=== PATIENT | female | born 1940 | race Caucasian/White ===

== ENCOUNTER 2019-10-05 02:14 | Inpatient (IN) ==
--- OUTSIDE RECORDS SUMMARY | 2019-10-05 02:16 | External Medical Summary | Continuity of Care Document ---
:1940 Author Name Nick Hobson, Provider Address Unavailable Unavailable , Care Team Providers Name Role Phone Russ Hobson, Claudy Cummins Unavailable [email or web address], [email or web address] Unavailable Unavailable Problems Active medical history not documented Allergies and Adverse Reactions Allergy history not documented Medications Medications not documented Procedures Procedures not documented Immunizations Immunizations not documented Plan of Treatment Planned Observations Planned Goals not documented Results No Known Results Results not documented
--- OUTSIDE RECORDS SUMMARY | 2019-10-05 02:16 | External Medical Summary | Continuity of Care Document ---
:1940 Author Name Nick Hobson, Provider Address Unavailable Unavailable , Care Team Providers Name Role Phone Russ Hobson, Claudy Cummins Unavailable [email or web address], UNKNOWN Unavailable Unavailable Problems Active medical history not documented Allergies and Adverse Reactions Allergy history not documented Medications Medications not documented Procedures Procedures not documented Immunizations Immunizations not documented Plan of Treatment Planned Observations Planned Goals not documented Results No Known Results Results not documented
--- NOTE | 2019-10-05 02:43 | Emergency Department Note ---
History of Present Illness General Chief complaint: Abdominal Pain Stated complaint: SEVERE ABD PAIN Time Seen by Provider: 10/05/19 02:25 Source: patient Mode of arrival: ambulatory Limitations: no limitations History of Present Illness Provider complaint: Abdominal pain Onset (ago): hour(s) Location: abdomen Radiation: abdomen Severity: moderate Pain Consistency: + constant Maximum Pain Intensity: 5 Current Pain Intensity: 5 Quality: + constant Relieved By: + none Exacerbated By: + none Associated symptoms: + loss of appetite; no chest pain, no fever/chills, no bishnu sea/vomiting and no syncope Treatments prior to arrival: none Is a 78-year-old female who presents from home complaining of worsening abdomi nal pain. Patient states the abdominal pain started earlier this evening. Patient states it was initially located only on the left lower and left mid abdomen, but has since begun to radiate across her central abdomen. Patient states she feels bloated as well. Patient denies any radiation of pain into her back. Patient denies any recent change in her bowel movements, no recent change in her urine or urinary habits. Patient denies any accompanying fevers or chills, nausea vomiting. No change in diet, no known sick contacts. Patient states the pain did not change with position or moving. Patient states she did not take anything for the pain prior to arrival. Patient denies any prior h istory of similar pain. Patient states she has no known stomach or intestinal problems, however has never had a colonoscopy. Pt seen during a time of high acuity and national emergency pandemic while wearing PPE. Home Medications Home Medications Medication Instructions Recorded Confirmed Type lisinopril [Zestril] 5 mg PO QAM #30 tab 10/05/19 Rx Allergies Allergy/AdvReac Type Severity Reaction Status Date / Time milk AdvReac Intermediate NAUSEA/VOMI Verified 10/05/19 04:58 TING Past Med/Surg History Medical History Abdominal aortic aneurysm (AAA) 3.0 cm to 5.0 cm in diameter in female Family History (Updated 10/05/19 @ 15:07 by Hussain Willis MD) Father No problems noted. Mother No problems noted. Other Family history non-contributory Social History Smoking Status: Heavy tobacco smoker Second Hand Exposure: No; Hx Alcohol Use: Yes Alcohol type: wine Hx Substance Use: No Preferred Language: Montserratian Communication Ability: Effective Conditioning Yard Supervisor Required: No Beliefs That Will Affect Care: None Current Living Situation: Significant Other Feels Safe at Home: Yes Review of Systems See HPI for pertinent positives & negatives. and A total of 10 systems reviewed and were otherwise negative Physical Exam Vital Signs Vital Signs - 24 hr 10/05/19 02:19 10/05/19 02:50 10/05/19 03:00 Temperature 36.6 C Temperature Source Oral Pulse Rate 64 65 63 Pulse Rate from SpO2 Sensor 65 63 Respiratory Rate 19 20 20 Respiratory Effort / Characteristics Non-Labored Spontaneous Respiratory Depth Normal Blood Pressure 222/108 H 232/121 H 242/112 H Blood Pressure Mean 146 138 130 Blood Pressure Position Sitting Pulse Oximetry 97 96 98 Oxygen Delivery Method Room Air Room Air Room Air Sepsis Recent Fever Within 48 Hours No Sepsis New/Unexplained Change in Mental Status N/A Sepsis Action Taken by Nursing No Action Required 10/05/19 03:31 10/05/19 03:49 10/05/19 04:00 Temperature Temperature Source Pulse Rate 62 67 Pulse Rate from SpO2 Sensor Respiratory Rate 22 16 19 Respiratory Effort / Characteristics Respiratory Depth Blood Pressure 225/136 H 209/109 H 224/99 H Blood Pressure Mean 164 131 113 Blood Pressure Position Pulse Oximetry 95 96 96 Oxygen Delivery Method Sepsis Recent Fever Within 48 Hours Sepsis New/Unexplained Change in Mental Status Sepsis Action Taken by Nursing 10/05/19 04:30 10/05/19 05:00 10/05/19 05:35 Temperature Temperature Source Pulse Rate 63 68 74 Pulse Rate from SpO2 Sensor Respiratory Rate 16 17 15 Respiratory Effort / Characteristics Respiratory Depth Blood Pressure 219/101 H 172/100 H 157/91 H Blood Pressure Mean 123 112 113 Blood Pressure Position Pulse Oximetry 99 99 99 Oxygen Delivery Method Sepsis Recent Fever Within 48 Hours Sepsis New/Unexplained Change in Mental Status Sepsis Action Taken by Nursing 10/05/19 06:00 10/05/19 06:30 10/05/19 07:00 Temperature Temperature Source Pulse Rate 65 70 70 Pulse Rate from SpO2 Sensor Respiratory Rate 19 20 21 Respiratory Effort / Characteristics Respiratory Depth Blood Pressure 185/86 H 179/97 H 173/93 H Blood Pressure Mean 119 140 119 Blood Pressure Position Pulse Oximetry 99 99 97 Oxygen Delivery Method Sepsis Recent Fever Within 48 Hours Sepsis New/Unexplained Change in Mental Status Sepsis Action Taken by Nursing 10/05/19 07:26 10/05/19 07:30 10/05/19 08:00 Temperature Temperature Source Pulse Rate 67 63 70 Pulse Rate from SpO2 Sensor 64 Respiratory Rate 20 17 23 Respiratory Effort / Characteristics Respiratory Depth Blood Pressure 173/93 H 185/91 H 181/106 H Blood Pressure Mean 99 124 134 Blood Pressure Position Pulse Oximetry 97 95 Oxygen Delivery Method Sepsis Recent Fever Within 48 Hours Sepsis New/Unexplained Change in Mental Status Sepsis Action Taken by Nursing 10/05/19 08:30 10/05/19 09:00 Temperature Temperature Source Pulse Rate 72 68 Pulse Rate from SpO2 Sensor 73 Respiratory Rate 16 21 Respiratory Effort / Characteristics Respiratory Depth Blood Pressure 182/106 H 188/97 H Blood Pressure Mean 144 127 Blood Pressure Position Pulse Oximetry 92 96 Oxygen Delivery Method Sepsis Recent Fever Within 48 Hours Sepsis New/Unexplained Change in Mental Status Sepsis Action Taken by Nursing GENERAL: alert, ill appearing, well nourished, no distress, non-toxic EYE EXAM: normal conjunctiva, PERRL and EOM's grossly intact OROPHARYNX: no exudate, no erythema, lips, buccal mucosa, and tongue normal and mucous membranes are moist NECK: supple, no nuchal rigidity, no adenopathy, non-tender LUNGS: Clear to auscultation. Normal chest wall mechanics, no w/r/r HEART: no murmurs, S1 normal and S2 normal ABDOMEN: abdomen soft, pain with palpation of the left lower abdomen, normo- active bowel sounds, no masses, no rebound or guarding. BACK: Back is symmetrical on inspection and there is no deformity, no midline tenderness, no CVA tenderness. SKIN: no rashes and no bruising UPPER EXTREMITIES: upper extremities are grossly normal. FROM, nml pulses b/l. LOWER EXTREMITIES: No pitting edema. FROM, nml pulses b/l. NEURO EXAM: Normal sensorium, cranial nerves II-XII grossly intact, normal speech, no gross weakness of arms, no gross weakness of legs. Gross sensation intact. Course Course 0426: I contacted stat read radiology to discuss the report for the patient CT. The reading radiologist had already gone home, however another radiologist, Dr. Isaacs, was able to pull up the study and discussed the findings. He states no evidence of acute pathology to explain the pain. The vascular findings noted by Dr. Villalba all appear chronic, there is no leaking or dissection. There is no evidence of bowel obstruction. There is an abnormality noted at the ileocec al valve that is of unclear etiology. 0440: Patient updated on results. 0542: Case discussed with Dr. Koroma. He would like additional input from radiology regarding the abnormal findings due to concern for need for vascular intervention. 0601: Discussed with radiologist, Dr. Yousif. He will review the study and call us back. 0622: Discussed with Dr. Yousif. 0703: Case discussed with Dr. Don. 0802: Case discussed with Dr. Willis. Administered Medications Discontinued Medications Fentanyl Citrate (Fentanyl Citrate) 50 mcg IV Q15M PRN PRN Reason: Pain Stop: 10/19/19 03:11 Last Admin: 10/05/19 03:30 Dose: 50 mcg Documented by: [id number] Hydralazine HCl (Hydralazine Hcl) 10 mg IV NOW STA Stop: 10/05/19 03:13 Last Admin: 10/05/19 03:30 Dose: 10 mg Documented by: [id number] Hydralazine HCl (Hydralazine Hcl) 10 mg IV NOW STA Stop: 10/05/19 04:18 Last Admin: 10/05/19 04:36 Dose: 10 mg Documented by: [id number] Hydralazine HCl (Hydralazine Hcl) 10 mg IV Q4H PRN PRN Reason: SBP > 190 or DBP > 110 Stop: 11/04/19 11:02 Last Admin: 10/05/19 12:20 Dose: 10 mg Documented by: [id number] Sodium Chloride (Nss 1000ml) 1,000 mls @ 125 mls/hr IV .Q8H XU Stop: 11/04/19 05:14 Last Infusion: 10/05/19 15:32 Dose: 0 mls/hr Documented by: [id number] Admin: 10/05/19 05:18 Dose: 125 mls/hr Documented by: [id number] Ioversol (Optiray 320 100ml) 100 ml IV ONCE PRN PRN Reason: Interaction Checking Stop: 10/09/19 03:36 Last Admin: 10/05/19 03:37 Dose: 93 ml Documented by: [id number] Lisinopril (Zestril) 5 mg PO QAM XU Stop: 11/04/19 11:02 Last Admin: 10/05/19 11:48 Dose: 5 mg Documented by: [id number] Polyethylene Glycol (Miralax Powder Packet) 17 gm PO DAILY [facility] Stop: 11/04/19 11:02 Last Admin: 10/05/19 11:48 Dose: 17 gm Documented by: [id number] Critical Care Time Critical Care Time: Yes Total Critical Care Time: 48 Critical care of 48 min performed to assess and manage high likelihood of life- threatening hypertension, involving labs/imaging performed with assessment to evaluate possible hypertensive emergency diagnosis with frequent reassessment. This time includes bedside time, treatment discussions with patient/family/consultants, documentation time and excludes procedure time. Medical Decision Making Differential Diagnosis Differential diagnoses includes but is not limited to gastritis, peptic ulcer disease, GERD, gallbladder disease, pancreatitis, small bowel obstruction, acute coronary syndrome, pericarditis, ischemic bowel, irritable bowel disease, irritable bowel syndrome, appendicitis, diverticulitis, malignancy, hernia, urinary tract infection, torsion, [/ectopic (if female)], perforation, trauma, infectious. Medical Records Attestation: I reviewed the patient's medical records. Home Medications Current Medication List: was personally reviewed by me Laboratory Data Attestation: I reviewed the patient's lab results. Result diagrams: 10/05/19 04:31 10/05/19 02:48 Lab Results 10/05/19 10/05/19 10/05/19 Range/Units 02:48 02:48 02:48 WBC 5.86 (4.8-10.8) K/uL RBC 4.85 (4.2-5.4) M/uL Hgb 13.1 (12.0-16.0) g/dL Hct 41.4 (37-47) % MCV 85.4 (80-100) fL MCH 27.0 (25-34) pg MCHC 31.6 L (32-36) g/dL RDW Std Deviation 49.8 H (36.4-46.3) fL RDW Coeff of Paul 16.0 H (11.5-14.5) % Plt Count 204 (130-400) K/uL MPV 9.8 (7.4-10.4) fL Immature Gran % (Auto) 0.0 % Neut % (Auto) 68.7 % Lymph % (Auto) 17.6 % [place] % (Auto) 10.8 % Eos % (Auto) 2.6 % Baso % (Auto) 0.3 % Neut # (Auto) 4.03 (1.4-6.5) K/uL Lymph # (Auto) 1.03 L (1.2-3.4) K/uL [place] # (Auto) 0.63 H (0.11-0.59) K/uL Eos # (Auto) 0.15 (0-0.5) K/uL Baso # (Auto) 0.02 (0-0.2) K/uL Immature Gran # (Auto) 0.00 (0.00-0.02) K/uL PT 10.8 (9.0-12.0) Seconds INR 1.0 (0.9-1.1) Sodium (136-145) mmol/L Potassium (3.5-5.1) mmol/L Chloride (98-107) mmol/L Carbon Dioxide (21-32) mmol/L Anion Gap (3-11) BUN (7-18) mg/dl Creatinine (0.6-1.2) mg/dl Est Cr Clr Drug Dosing ml/min Est GFR ( Amer) Est GFR (Non-Af Amer) BUN/Creatinine Ratio (10-20) Glucose (70-99) mg/dl Lactate 1.0 (0.4-2.0) mmol/L Calcium (8.5-10.1) mg/dl Magnesium (1.8-2.4) mg/dl Total Bilirubin (0.2-1) mg/dl AST (15-37) U/L ALT (12-78) U/L Alkaline Phosphatase (45-117) U/L Troponin I (0-0.045) ng/ml Total Protein (6.4-8.2) gm/dl Albumin (3.4-5.0) gm/dl Globulin (2.5-4.0) gm/dl Albumin/Globulin Ratio (0.9-2) Lipase (73-393) U/L Urine Color Urine Appearance (Clear) Urine pH (4.5-7.5) Ur Specific [place] (1.000-1.030) Urine Protein (Negative) Urine Glucose (UA) (Negative) Urine Ketones (Negative) Urine Blood (Negative) Urine Nitrite (Negative) Urine Bilirubin (Negative) Urine Urobilinogen (Negative) Ur Leukocyte Esterase (Negative) Urine WBC (Auto) (0-5) /hpf Urine RBC (Auto) (0-4) /hpf U Hyaline Cast (Auto) (0-5) /lpf U Epithel Cells (Auto) (0-5) /lpf Urine Bacteria (Auto) (Negative) Blood Type Antibody Screen 10/05/19 10/05/19 10/05/19 Range/Units 02:48 03:50 04:31 WBC (4.8-10.8) K/uL RBC (4.2-5.4) M/uL Hgb (12.0-16.0) g/dL Hct (37-47) % MCV (80-100) fL MCH (25-34) pg MCHC (32-36) g/dL RDW Std Deviation (36.4-46.3) fL RDW Coeff of Paul (11.5-14.5) % Plt Count (130-400) K/uL MPV (7.4-10.4) fL Immature Gran % (Auto) % Neut % (Auto) % Lymph % (Auto) % [place] % (Auto) % Eos % (Auto) % Baso % (Auto) % Neut # (Auto) (1.4-6.5) K/uL Lymph # (Auto) (1.2-3.4) K/uL [place] # (Auto) (0.11-0.59) K/uL Eos # (Auto) (0-0.5) K/uL Baso # (Auto) (0-0.2) K/uL Immature Gran # (Auto) (0.00-0.02) K/uL PT (9.0-12.0) Seconds INR (0.9-1.1) Sodium 143 (136-145) mmol/L Potassium 3.6 (3.5-5.1) mmol/L Chloride 109 H (98-107) mmol/L Carbon Dioxide 30 (21-32) mmol/L Anion Gap 4.0 (3-11) BUN 15 (7-18) mg/dl Creatinine 1.05 (0.6-1.2) mg/dl Est Cr Clr Drug Dosing 35.9 ml/min Est GFR ( Amer) 58.5 Est GFR (Non-Af Amer) 50.5 BUN/Creatinine Ratio 13.8 (10-20) Glucose 109 H (70-99) mg/dl Lactate (0.4-2.0) mmol/L Calcium 8.7 (8.5-10.1) mg/dl Magnesium 2.2 (1.8-2.4) mg/dl Total Bilirubin 0.5 (0.2-1) mg/dl AST 17 (15-37) U/L ALT 13 (12-78) U/L Alkaline Phosphatase 85 (45-117) U/L Troponin I < 0.015 (0-0.045) ng/ml Total Protein 7.3 (6.4-8.2) gm/dl Albumin 3.3 L (3.4-5.0) gm/dl Globulin 4.0 (2.5-4.0) gm/dl Albumin/Globulin Ratio 0.8 L (0.9-2) Lipase 136 (73-393) U/L Urine Color Yellow Urine Appearance Clear (Clear) Urine pH 7.5 (4.5-7.5) Ur Specific [place] 1.018 (1.000-1.030) Urine Protein Negative (Negative) Urine Glucose (UA) Negative (Negative) Urine Ketones Negative (Negative) Urine Blood 3+ H (Negative) Urine Nitrite Negative (Negative) Urine Bilirubin Negative (Negative) Urine Urobilinogen Negative (Negative) Ur Leukocyte Esterase Negative (Negative) Urine WBC (Auto) 1-5 (0-5) /hpf Urine RBC (Auto) >30 H (0-4) /hpf U Hyaline Cast (Auto) 0 (0-5) /lpf U Epithel Cells (Auto) 10-20 H (0-5) /lpf Urine Bacteria (Auto) Negative (Negative) Blood Type A Positive Antibody Screen NEGATIVE 10/05/19 Range/Units 04:31 WBC 7.92 (4.8-10.8) K/uL RBC 4.92 (4.2-5.4) M/uL Hgb 13.4 (12.0-16.0) g/dL Hct 41.9 (37-47) % MCV 85.2 (80-100) fL MCH 27.2 (25-34) pg MCHC 32.0 (32-36) g/dL RDW Std Deviation 50.3 H (36.4-46.3) fL RDW Coeff of Paul 16.0 H (11.5-14.5) % Plt Count 202 (130-400) K/uL MPV 10.3 (7.4-10.4) fL Immature Gran % (Auto) % Neut % (Auto) % Lymph % (Auto) % [place] % (Auto) % Eos % (Auto) % Baso % (Auto) % Neut # (Auto) (1.4-6.5) K/uL Lymph # (Auto) (1.2-3.4) K/uL [place] # (Auto) (0.11-0.59) K/uL Eos # (Auto) (0-0.5) K/uL Baso # (Auto) (0-0.2) K/uL Immature Gran # (Auto) (0.00-0.02) K/uL PT (9.0-12.0) Seconds INR (0.9-1.1) Sodium (136-145) mmol/L Potassium (3.5-5.1) mmol/L Chloride (98-107) mmol/L Carbon Dioxide (21-32) mmol/L Anion Gap (3-11) BUN (7-18) mg/dl Creatinine (0.6-1.2) mg/dl Est Cr Clr Drug Dosing ml/min Est GFR ( Amer) Est GFR (Non-Af Amer) BUN/Creatinine Ratio (10-20) Glucose (70-99) mg/dl Lactate (0.4-2.0) mmol/L Calcium (8.5-10.1) mg/dl Magnesium (1.8-2.4) mg/dl Total Bilirubin (0.2-1) mg/dl AST (15-37) U/L ALT (12-78) U/L Alkaline Phosphatase (45-117) U/L Troponin I (0-0.045) ng/ml Total Protein (6.4-8.2) gm/dl Albumin (3.4-5.0) gm/dl Globulin (2.5-4.0) gm/dl Albumin/Globulin Ratio (0.9-2) Lipase (73-393) U/L Urine Color Urine Appearance (Clear) Urine pH (4.5-7.5) Ur Specific [place] (1.000-1.030) Urine Protein (Negative) Urine Glucose (UA) (Negative) Urine Ketones (Negative) Urine Blood (Negative) Urine Nitrite (Negative) Urine Bilirubin (Negative) Urine Urobilinogen (Negative) Ur Leukocyte Esterase (Negative) Urine WBC (Auto) (0-5) /hpf Urine RBC (Auto) (0-4) /hpf U Hyaline Cast (Auto) (0-5) /lpf U Epithel Cells (Auto) (0-5) /lpf Urine Bacteria (Auto) (Negative) Blood Type Antibody Screen Imaging Data Radiologist's Impression: CT abdomen and pelvis with contrast: Left hepatic 1.5 cm medial posterior segment 3 cyst. Bilateral renal cyst. Mild constipation. Appendix is not well seen. Bowel loops in the right lower pelvis measuring 10.5 cm in diameter is felt to be a fluid-filled small bowel loop rather than a distended appendix. No surrounding inflammatory changes. 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 Mild calcification at bilateral renal arteries. Fusiform infrarenal abdominal aortic aneurysm with a caliber of 3.56 cm. 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 There is 50% stenosis just proximal to the aortic bifurcation with left-sided thrombus measuring up to 1.6 cm and right-sided patent lumen measuring up to 1.56 cm. Atherosclerotic calcification of bilateral pelvic arteries. Pin and intramedullary shanice seen in the proximal left femur and neck. 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 Lower lumbar spine degenerative changes. Radiologist:Jemima Villalba MD CT pelvis wo con HISTORY: 78 years-old Female abn ileocecal valve abnormal ileocecal valve. COMPARISON: CT abdomen and pelvis of same day at 3:43 AM TECHNIQUE: Multiple axial CT images of the pelvis were obtained without the use of IV contrast. A dose lowering technique was used consistent with the principals of ALARA. FINDINGS: The terminal ileum demonstrates decreased distention from comparison. The previously questioned thickening at the ileocecal valve on the noncontrast study demonstrates density of approximately 61. The postcontrast study from earlier demonstrate Hounsfield of 93 suggestive of apparent enhancement. Exam is motion degraded. The visualized appendix appears normal. Moderate fecal retention. Fusiform aneurysmal dilation of the distal abdominal aorta with extensive calcified plaque and mural thrombus redemonstrated. Retained contrast within the urinary bladder. Right renal cyst. Tarlov's cysts of the sacrum. Demineralized appearance of the bones. Degenerative changes of the spine and hips. Partially imaged orthopedic hardware of the proximal left femur. IMPRESSION: 1. Study is mildly motion degraded. 2. Soft tissue thickening of the ileocecal valve demonstrates apparent decreased attenuation compared to the postcontrast study from earlier today. Findings are suspicious for an enhancing mucosal lesion of the ileocecal valve. Correlation with colonoscopy recommended. 3. No bowel obstruction. 4. Normal appendix. 5. Please refer to CT abdomen and pelvis of same day for additional findings. ACT 112: Negative or not required by law. The above report was generated using voice recognition software. It may contain grammatical, syntax or spelling errors. Electronically signed by: Omar Don M.D. 10/05/2019 7:34 AM ECG Data Attestation: I personally reviewed and interpreted this ECG as follows: Indication: + abdominal pain Rate (beats per minute): 62 Rhythm: + normal sinus ECG Intervals/blocks: + First degree AV block, + Normal QRS and + Normal QT ECG [place]: + Left axis deviation ECG ST segments: + Normal ST segments Blood Pressure Blood Pressure Findings: Elevated blood pressure Blood Pressure Disposition: further management by hospitalist LEXIS Alvarez Patient well-appearing here with initial complaints of abdominal pain. Patient found to be markedly hypertensive, and given her noncompliant status with preventive medicine and routine screenings, I feel she likely has underlying hypertension that may be exacerbated by pain and anxiety regarding her condition. Patient had labs drawn and sent and patient sent for CT imaging. Multiple abnormalities were noted on the CT. These were discussed with the patient at bedside. Patient was given IV hydralazine which showed mild improvement in her pain as well as some fentanyl. I discussed all results with patient and her significant other at bedside and they were in agreement with plan for additional inpatient treatment. Patient was given a second dose of IV hydralazine. After the CT result was made available I did call the overnight stat read to try and discussed the findings to assure that the vascular findings noted were not new or acute warranting prompt vascular intervention. The radiologist stated these all appeared chronic. They did not see any acute evidence for surgical pathology or acute vascular pathology on the study. After discussing the patient's clinical presentation, they state they did not see any acute reason for her left-sided abdominal pain. Case was discussed with the hospitalist for additional blood pressure management and pain control, and they requested additional over read by our not any radiologist due to abnormal findings. I discussed the case with 2 of our in-house radiologist who felt ultimately patient did not have any acute surgical or vascular emergency, but would need additional follow-up and likely outpatient colonoscopy. I did discuss this with the patient. Ultimately the case was discussed with the critical access hospital hospitalist, Dr. Willis. An order was placed for continuous cardiac monitoring. The monitor shows a rate of 62 with normal sinus rhythm. Impression & Plan Abdominal pain, Hypertension Discharge Plan Visit Data *Final* Discharge Date/Time: 10/05/19 09:47 Chief Complaint: Abdominal Pain Stated Complaint: SEVERE ABD PAIN ED Provider: Lolis Mac Discharge Problem: Abdominal pain, Hypertension Patient Disposition: Admitted As Inpatient Discharge Instructions Interventions: ED Discharge Assessment Last Done: 10/05/19 09:47 Discharge Problem: Abdominal pain Qualifiers: Abdominal location: left lower quadrant Qualified Code(s): R10.32 - Left lower quadrant pain Hypertension Qualifiers: Hypertension type: unspecified Qualified Code(s): I10 - Essential (primary) hypertension
[2019-10-05 02:59] LABS: Basophils # (auto) 0.02 K/uL (0-0.2); Basophils % (auto) 0.3 %; Eosinophils # (auto) 0.15 K/uL (0-0.5); Eosinophils % (auto) 2.6 %; Hematocrit (blood only) 41.4 % (37-47); Hemoglobin 13.1 g/dL (12.0-16.0); Lymphocytes # (auto) 1.03 K/uL (1.2-3.4); Lymphocytes % (auto) 17.6 %; Mean Corpuscular Hgb Conc 31.6 g/dL (32-36); Mean Corpuscular Volume 85.4 fL (80-100); Mean Platelet Volume 9.8 fL (7.4-10.4); Monocytes # (auto) 0.63 K/uL (0.11-0.59); Monocytes % (auto) 10.8 %; Neutrophils # (auto) 4.03 K/uL (1.4-6.5); Neutrophils % (auto) 68.7 %; Platelet Count 204 K/uL (130-400); RDW Standard Deviation 49.8 fL (36.4-46.3); Red Blood Count 4.85 M/uL (4.2-5.4); White Blood Count 5.86 K/uL (4.8-10.8)
[2019-10-05 03:11] LABS: Prothrombin Time 10.8 Seconds (9.0-12.0)
[2019-10-05] MEDS ORDERED: fentaNYL citrate 100 MCG/2 ML VIAL IV PRN (03:12)
[2019-10-05] MEDS ORDERED: HydrALAZINE HCL 20 MG/ML VIAL IV STA ×2 (03:12→04:17)
[2019-10-05 03:18] LABS: Alanine Aminotransferase 13 U/L (12-78); Albumin Level 3.3 gm/dl (3.4-5.0); Aspartate Aminotransferase 17 U/L (15-37); BUN Creatinine Ratio 13.8 (10-20); Blood Urea Nitrogen 15 mg/dl (7-18); Calcium 8.7 mg/dl (8.5-10.1); Carbon Dioxide 30 mmol/L (21-32); Chloride 109 mmol/L (98-107); Creatinine Clr Calc Pharmacy 35.9 ml/min; Est GFR (African American) 58.5; Est GFR (Non-African American) 50.5; Glucose 109 mg/dl (70-99); Lipase 136 U/L (73-393); Magnesium 2.2 mg/dl (1.8-2.4); Potassium 3.6 mmol/L (3.5-5.1); Sodium 143 mmol/L (136-145)
[2019-10-05 03:23] LABS: Albumin Globulin Ratio 0.8 (0.9-2); Alkaline Phosphatase 85 U/L (45-117); Bilirubin,Total 0.5 mg/dl (0.2-1); Total Protein 7.3 gm/dl (6.4-8.2); Troponin I < 0.015 ng/ml (0-0.045)
[2019-10-05] MEDS ORDERED: IOVERSOL 100ml IV PRN (03:37)
[2019-10-05 04:09] LABS: Appearance Urine Clear (Clear); Bacteria Urine Automated Negative (Negative); Bilirubin Urine Negative (Negative); Blood Urine 3+ (Negative); Cast Urine Automated 0 /lpf (0-5); Color Urine Yellow; Glucose Urine UA Negative (Negative); Ketones Urine Negative (Negative); Leukocyte Esterase Urine Negative (Negative); Nitrite Urine Negative (Negative); RBC Urine Automated >30 /hpf (0-4); Specific Gravity Urine 1.018 (1.000-1.030); Urobilinogen Urine Negative (Negative); pH Urine 7.5 (4.5-7.5)
[2019-10-05 04:13] LABS: Protein Urine Negative (Negative); Sulfosalicylic Acid Urine Negative (Negative)
[2019-10-05 04:49] LABS: Hematocrit (blood only) 41.9 % (37-47); Hemoglobin 13.4 g/dL (12.0-16.0); Mean Corpuscular Hemoglobin 27.2 pg (25-34); Mean Corpuscular Volume 85.2 fL (80-100); Mean Platelet Volume 10.3 fL (7.4-10.4); Platelet Count 202 K/uL (130-400); RDW Standard Deviation 50.3 fL (36.4-46.3); Red Blood Count 4.92 M/uL (4.2-5.4); White Blood Count 7.92 K/uL (4.8-10.8)
[2019-10-05] MEDS ORDERED: SODIUM CHLORIDE 0.9% 1000ML 1,000 ML IV SCH (05:15)
--- NOTE | 2019-10-05 07:01 | CT Scan Report ---
ABDOMEN AND PELVIS CT WITH IV CONTRAST CT DOSE: 247.47 mGy.cm HISTORY: Acute right lower quadrant abdominal pain llq pain TECHNIQUE: Multiaxial CT images of the abdomen and pelvis were performed following the IV administrat ion of 93 cc of Optiray 320, A dose lowering technique was utilized adhering to the principles of AL ÁNGEL. COMPARISON STUDY: None FINDINGS: Clear lung bases. Imaged inferior cardiac chambers are unremarkable. The spleen, pancreas, and gallbl adder are unremarkable. Probable cyst of the left hepatic lobe, 1.7 cm. 5 mm hypodensity of the left hepatic lobe is too small to characterize. Patency of the hepatic and portal veins. Unremarkable adre nal glands. Cyst of the inferior pole right kidney, 1.7 cm. No obstructive uropathy. Unremarkable uri nary bladder, uterus and adnexa. Severe mixed plaque of the abdominal aorta. Dilation of the descendi ng thoracic aorta, 3.8 cm. Fusiform aneurysmal dilation of the abdominal aorta measures up to 4.1 cm in greatest dimension. 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 The iliac and common femoral zuri katerin appear patent. No adenopathy. Moderate fecal retention. Indeterminate mixed density focus is noted at the ileocecal valve, 2.0 x 2. 6 cm in image 232 series 3. Stool-filled prominent terminal ileum measures 2.6 cm transversely. The a ppendix is not visualized in its entirety. The partially visualized appendix appears noninflamed. No small bowel obstruction. Nonspecific stranding of the omentum within the lateral left midabdomen, bryce ge 140 series 3. Mild generalized body wall edema. Tarlov cysts of the sacrum. Partially imaged hardw are of the proximal left femur. Demineralized appearance of the bones with degenerative changes of th e spine, pelvis and hips. 30% superior endplate compression deformities are noted at T12 and L3. No r etropulsion. IMPRESSION: 1. Moderate fecal retention. Mixed attenuating masslike thickening at the ileocecal valve measures up to 2.6 cm. This may reflect stool contents however an enhancing lesion could appear similarly. Follo w-up noncontrast CT of the pelvis is recommended to further characterize. Additionally, a follow-up c olonoscopy may also be considered. Stool-filled mildly prominent terminal ileum. 2. Partially visualized appendix appears noninflamed. 3. Extensive mixed atheromatous and atherosclerotic plaque of the abdominal aorta with fusiform aneur ysmal dilation measures up to 4.1 cm. No acute dissection. 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 The iliac and common femoral arteries appear patent. 4. Technically age-indeterminate compression deformities at T12 and L3. These are favored to be chron ic in etiology. ACT 112: Negative or not required by law. The above report was generated using voice recognition software. It may contain grammatical, syntax o r spelling errors. Electronically signed by: Omar Don M.D. 10/05/2019 6:59 AM
--- NOTE | 2019-10-05 07:36 | CT Scan Report ---
CT pelvis wo con HISTORY: 78 years-old Female abn ileocecal valve abnormal ileocecal valve. COMPARISON: CT abdomen and pelvis of same day at 3:43 AM TECHNIQUE: Multiple axial CT images of the pelvis were obtained without the use of IV contrast. A dos e lowering technique was used consistent with the principals of MEI. FINDINGS: The terminal ileum demonstrates decreased distention from comparison. The previously questioned thick ening at the ileocecal valve on the noncontrast study demonstrates density of approximately 61. The p ostcontrast study from earlier demonstrate Hounsfield of 93 suggestive of apparent enhancement. Exam is motion degraded. The visualized appendix appears normal. Moderate fecal retention. Fusiform aneury smal dilation of the distal abdominal aorta with extensive calcified plaque and mural thrombus redemo nstrated. Retained contrast within the urinary bladder. Right renal cyst. Tarlov's cysts of the sacru m. Demineralized appearance of the bones. Degenerative changes of the spine and hips. Partially image d orthopedic hardware of the proximal left femur. IMPRESSION: 1. Study is mildly motion degraded. 2. Soft tissue thickening of the ileocecal valve demonstrates apparent decreased attenuation compared to the postcontrast study from earlier today. Findings are suspicious for an enhancing mucosal lesio n of the ileocecal valve. Correlation with colonoscopy recommended. 3. No bowel obstruction. 4. Normal appendix. 5. Please refer to CT abdomen and pelvis of same day for additional findings. ACT 112: Negative or not required by law. The above report was generated using voice recognition software. It may contain grammatical, syntax o r spelling errors. Electronically signed by: Omar Don M.D. 10/05/2019 7:34 AM
[2019-10-05] MEDS ORDERED: ACETAMINOPHEN 325 MG TAB PO PRN (11:03)
[2019-10-05] MEDS ORDERED: HydrALAZINE HCL 20 MG/ML VIAL IV PRN (11:03)
[2019-10-05] MEDS ORDERED: ONDANSETRON INJ 2 MG/ML 2 ML VIAL IV PRN (11:03)
[2019-10-05] MEDS ORDERED: MoRPHine SULFATE 4 MG/ML 1 ML CARP\\VIAL IV PRN (11:03)
[2019-10-05] MEDS ORDERED: POLYETHYLENE (MIRALAX) 17 GM PACK PO SCH (11:03)
[2019-10-05] MEDS ORDERED: lisinopriL 5 MG TAB PO SCH (11:03)
--- NOTE | 2019-10-05 12:14 | Gastrointestinal Consultation ---
Date of Consultation October 05, 2019 Assessment & Plan (1) Abdominal pain: (2) Abnormal CT of the abdomen: (3) Hypertension: After discussion with the patient, she states she is not interested in any invasive work up or surgical procedure. She was made aware of the risks of undiagnosed colon cancer which can include bowel obstruction and . She states "I would rather kill myself than have any surgery". Interestingly, I did speak with Dr. Willis and the patient had reported willingness to have a colonoscopy when she was seen at the ER. With that said, she will need medical management of the persistently uncontrolled HTN and cardiac clearance, especially with regard to the newly found AAA. Will await input from vascular surgery. If she is medically managed and cleared, could possibly proceed with colonoscopy tomorrow if patient is agreeable. Will await further input from Dr. Willis in this regard prior to ordering bowel preparation for tonight. Will change diet to clear liquids in the event colonoscopy can proceed tomorrow with Dr. Goodrich. Thank you for allowing us to participate in the care of this patient. If you have any questions or concerns, please do not hesitate to contact us. Supervising Physician Co-Signing Physician Notes I personally evaluated the patient and agree with the findings as documented by ARDEN Oscar Exam: abd: soft, nt, nd Vascular surgery consult appreciated, no acute surgical intervention needed for AAA at this time. HTN is now controlled. Upon further discussion with her she appears to be amenable to a colonoscopy now to evaluate her abnormal imaging findings. Recommendations: --prep with golytely starting tonight --colonoscopy tomorrow to further evaluate History of Present Illness Reason for Consultation: Abnormal CT Requesting Physician: Dr. Willis Attending Physician: Hussain Willis MD History of Present Illness Patient is a pleasant 78 year-old female with a history of hypertension admitted after a one week history of abdominal pain. She describes the pain as a constant, bilateral lower quadrant pain that is sharp on admission rated at 5/10 which is now a 0/10 after administration of IV analgesics. She states she does not follow with any medical providers routinely and does not take any medications routinely. She is a chronic daily tobacco user and does occasionally consume alcohol. No family history of colorectal malignancy. In regard to her bowel habits, she reports a bm that every other day. No overt melanotic or bloody stools. With this acute abdominal pain, she has developed mild bloating a nd loss of appetite. No recent weight loss. On arrival, she was found to have a normal H&H of 13.4/41.9. She has remained persistently hypertensive since admission. She is pending a vascular evaluation due to CT evidence of an ~ 4 cm AAA. GI has been consulted in regard to findings of a 2.6 cm ileocecal thickening, concerning for a possible mass. She has never undergone a colonoscopy in the past or any other surgical procedure. Allergies Allergy/AdvReac Type Severity Reaction Status Date / Time milk AdvReac Intermediate NAUSEA/VOMI Verified 10/05/19 04:58 TING Home Medications Home Medications Medication Instructions Recorded Confirmed Type No Known Home Medications 10/05/19 10/05/19 History Patient History Medical History Abdominal aortic aneurysm (AAA) 3.0 cm to 5.0 cm in diameter in female Family History (Updated 10/05/19 @ 15:07 by Hussain Willis MD) Father No problems noted. Mother No problems noted. Other Family history non-contributory Social History Smoking Status: Heavy tobacco smoker Second Hand Exposure: No; Do You Dip or Chew Tobacco: No; Tobacco Cessation Education Requested by Patient: No Hx Alcohol Use: Yes Alcohol type: wine Hx Substance Use: No Preferred Language: Swedish Communication Ability: Effective Vice President Sales Required: No Beliefs That Will Affect Care: None Current Living Situation: Significant Other Feels Safe at Home: Yes Safety Concerns: Feels Safe At This Time Review of Systems Review of Systems: All systems reviewed & are unremarkable except as noted in HPI & below Physical Exam Constitutional: WD/WN, vitals as above well developed and well nourished Eyes: EOM intact bilaterally Neck: normal appearance Respiratory: normal respiratory effort, lungs clear to auscultation Cardiovascular: Rate/Rhythm: regular rate and regular rhythm Heart Sounds: no gallop and no murmur Gastrointestinal (Abdomen): normal bowel sounds, soft, nontender, no hepatosplenomegaly Inspection/Auscultation: abdomen not distended Musculoskeletal: Extremities: no cyanosis no lower extremity edema Skin: no rashes, warm and dry Neurologic: moves all extremities Psychiatric: A+Ox3, euthymic affect Results & Data ([facility]) Vital Signs (Past 12 Hours) Vital Signs Temp Pulse Pulse Pulse Resp BP BP 10/05/19 11:54 37 C 73 20 194/105 H 10/05/19 11:05 37 C 69 70 18 190/101 H 10/05/19 09:44 74 22 196/118 H 10/05/19 09:00 68 21 188/97 H 10/05/19 08:30 72 16 182/106 H 10/05/19 08:00 70 23 181/106 H 10/05/19 07:30 63 17 185/91 H 10/05/19 07:26 67 20 173/93 H 10/05/19 07:00 70 21 173/93 H 10/05/19 06:30 70 20 179/97 H 10/05/19 06:00 65 19 185/86 H 10/05/19 05:35 74 15 157/91 H 10/05/19 05:00 68 17 172/100 H 10/05/19 04:30 63 16 219/101 H 10/05/19 04:00 67 19 224/99 H 10/05/19 03:49 16 209/109 H 10/05/19 03:31 62 22 225/136 H 10/05/19 03:00 63 20 242/112 H 10/05/19 02:50 65 20 232/121 H 10/05/19 02:19 36.6 C 64 19 222/108 H BP Pulse Ox 10/05/19 11:54 204/118 H 97 10/05/19 11:05 195/75 H 98 10/05/19 09:44 97 10/05/19 09:00 96 10/05/19 08:30 92 10/05/19 08:00 95 10/05/19 07:30 97 10/05/19 07:26 10/05/19 07:00 97 10/05/19 06:30 99 10/05/19 06:00 99 10/05/19 05:35 99 10/05/19 05:00 99 10/05/19 04:30 99 10/05/19 04:00 96 10/05/19 03:49 96 10/05/19 03:31 95 10/05/19 03:00 98 10/05/19 02:50 96 10/05/19 02:19 97 PG Care Time/CCT Total # of Minutes Spent Total Time Spent with Patient: Total time spent is greater than 50% in coordination of care (as documented) at patient's floor/unit and/or counseling patient: Coding Level of Care Code 65454 Initial Inpt Care Lvl 3 Diagnoses Abdominal pain R10.32 Abdominal location: left lower quadrant Abnormal CT of the abdomen R93.5 Hypertension I10 Hypertension type: unspecified (1) Abdominal pain Abdominal location: left lower quadrant Qualified Code(s): R10.32 - Left lower quadrant pain (2) Hypertension Hypertension type: unspecified Qualified Code(s): I10 - Essential (primary) hypertension
--- NOTE | 2019-10-05 12:39 | Electrocardiogram Report ---
Test Reason : Blood Pressure : / mmHG Vent. Rate : 062 BPM Atrial Rate : 062 BPM P-R Int : 202 ms QRS Dur : 104 ms QT Int : 430 ms P-R-T Axes : 064 -40 039 degrees QTc Int : 436 ms Normal sinus rhythm Possible Left atrial enlargement Left axis deviation Possible Inferior infarct (cited on or before 06-FEB-2013) Abnormal ECG When compared with ECG of 06-FEB-2013 21:39, QRS axis Shifted left Confirmed by Zac Suárez ([id number]) on 10/05/2019 12:38:40 PM Referred By: REFERRED SELF Confirmed By:Zac Suárez
--- NOTE | 2019-10-05 13:48 | Consultation ---
Date of Consultation October 05, 2019 Assessment & Plan (1) Abdominal aortic aneurysm (AAA) 3.0 cm to 5.0 cm in diameter in female: Infrarenal fusiform AAA approx 4.1cm in diameter noted on CT scan. No indications of rupture or dissection. Abd pain resolved, not likely related to her AAA. Recommend pt follow up in office in 6 months with aortoiliac US. Pt agreeable to this plan. No indications for surgical intervention at this time. Please call if needed. History of Present Illness Reason for Consultation: AAA Attending Physician: Hussain Willis MD History of Present Illness 78 yo f without significant medical hx d/t not seeing a physician in years, admitted with abd pain and found to have a 4.1cm AAA, seen in vascular surgical consultation for same today. Pt states her abd pain has resolved. Denies any prior knowledge of her AAA. Does smoke cigarettes. Does not take anything for HTN, but was noted to be hypertensive at 200/100 today. Pt denies REYNOSO, fever, chills, chest pain, SOB, abd pain presently, N/V, rest pain, claudication, other complaints. CT abd/pelvis demonstrated infrerenal fusiform AAA 4.1cm. Allergies Allergy/AdvReac Type Severity Reaction Status Date / Time milk AdvReac Intermediate NAUSEA/VOMI Verified 10/05/19 04:58 TING Home Medications Home Medications Medication Instructions Recorded Confirmed Type No Known Home Medications 10/05/19 10/05/19 History Patient History Social History Smoking Status: Heavy tobacco smoker Second Hand Exposure: No; Do You Dip or Chew Tobacco: No; Tobacco Cessation Education Requested by Patient: No Hx Alcohol Use: Yes Alcohol type: wine Hx Substance Use: No Preferred Language: Setswana Communication Ability: Effective Bin Tripper Operator Required: No Beliefs That Will Affect Care: None Current Living Situation: Significant Other Feels Safe at Home: Yes Safety Concerns: Feels Safe At This Time Review of Systems Review of Systems: All systems reviewed & are unremarkable except as noted in HPI & below Physical Exam Constitutional: WD/WN, vitals as above healthy appearing, + frail appearing, cooperative and comfortable; not in distress Eyes: PERRL, conjunctivae normal, anicteric sclerae ENMT: external ear and nose normal, oropharynx normal Ears: no hearing impairment Neck: normal visual inspection Respiratory: normal respiratory effort, lungs clear to auscultation Auscultation: + diminished lung sounds Cardiovascular: RRR, no murmur, no edema Vessels: femoral pulses present, posterior tibial pulses present, dorsalis pedis pulses present, brachial pulses present and radial pulses present; + abnormal peripheral pulses Gastrointestinal (Abdomen): normal bowel sounds, soft, nontender, no hepatosplenomegaly Inspection/Auscultation: + visible pulsation (pulsatile mass, approx 4cm.) Musculoskeletal: no cyanosis or clubbing, extremities motor strength 5/5 Skin: no rashes, warm and dry Neurologic: moves all extremities and awake; no focal motor deficits and not confused Psychiatric: A+Ox3, euthymic affect Results & Data Vital Signs (Past 12 Hours) Vital Signs Temp Pulse Pulse Pulse Resp BP BP 10/05/19 12:50 164/86 H 10/05/19 11:54 37 C 73 20 194/105 H 10/05/19 11:05 37 C 69 70 18 190/101 H 10/05/19 09:44 74 22 196/118 H 10/05/19 09:00 68 21 188/97 H 10/05/19 08:30 72 16 182/106 H 10/05/19 08:00 70 23 181/106 H 10/05/19 07:30 63 17 185/91 H 10/05/19 07:26 67 20 173/93 H 10/05/19 07:00 70 21 173/93 H 10/05/19 06:30 70 20 179/97 H 10/05/19 06:00 65 19 185/86 H 10/05/19 05:35 74 15 157/91 H 10/05/19 05:00 68 17 172/100 H 10/05/19 04:30 63 16 219/101 H 10/05/19 04:00 67 19 224/99 H 10/05/19 03:49 16 209/109 H 10/05/19 03:31 62 22 225/136 H 10/05/19 03:00 63 20 242/112 H 10/05/19 02:50 65 20 232/121 H 10/05/19 02:19 36.6 C 64 19 222/108 H BP Pulse Ox 10/05/19 12:50 10/05/19 11:54 204/118 H 97 10/05/19 11:05 195/75 H 98 10/05/19 09:44 97 10/05/19 09:00 96 10/05/19 08:30 92 10/05/19 08:00 95 10/05/19 07:30 97 10/05/19 07:26 10/05/19 07:00 97 10/05/19 06:30 99 10/05/19 06:00 99 10/05/19 05:35 99 10/05/19 05:00 99 10/05/19 04:30 99 10/05/19 04:00 96 10/05/19 03:49 96 10/05/19 03:31 95 10/05/19 03:00 98 10/05/19 02:50 96 10/05/19 02:19 97
--- NOTE | 2019-10-05 15:12 | History & Physical Report ---
Date of Service October 05, 2019 Assessment & Plan (1) Abdominal pain: CT a/p in the ED showed an area of thickening in the ileocecal area which may be causing her LLQ pain. - Patient initially agreeable to colonoscopy; however, now saying "she would rather " than get any procedure or surgery. - As such, patient was warned of the risks of untreated colon cancer and agreed that she was willing to take those risks. Abdominal improving. Patient has called her SO to pick her up. (2) Hypertension: BP was as high as 240/110 in the ED and when first getting to the floor. - Started lisinopril 5 mg - Hydralazine PRN (3) Abdominal aortic aneurysm (AAA) 3.0 cm to 5.0 cm in diameter in female: Noted on CT a/p. 4.1 cm. - Seen by vascular surgery -> Recommend pt follow up in office in 6 months with aortoiliac US. Pt agreeable to this plan. (4) Tobacco abuse: Smokes ~1/4 ppd per patient. - Declines nicotine patch (5) DVT prophylaxis: SCDs - Patient is higher risk; however, holding heparin in case she agrees to a colonoscopy. Admission and Anticipated Discharge Date Admission Date: October 05, 2019 History of Present Illness Primary Care Provider: NO PCP 78yo F w/ hx of tobacco use presents for abdominal pain that began this morning at ~1-2am. Per patient, the pain is a sharp, squeezing pain, 2-3/10 that has been constant since it began. She reports that it was accompanied by some nausea and dry heaves this morning, but this has passed and she is no longer nauseated. She received fentanyl in the ED and reports the pain is mildly improved. She denies any diarrhea, constipation, hematochezia, hematemesis, melena, or other concerning symptoms. Denies fevers or chills, denies weight loss, denies shortness of breath or cough. She was initially agreeable to a colonoscopy; however, now reports she will not accept any procedures or surgery. Allergies Allergy/AdvReac Type Severity Reaction Status Date / Time milk AdvReac Intermediate NAUSEA/VOMI Verified 10/05/19 04:58 TING Home Medications Home Medications Medication Instructions Recorded Confirmed Type No Known Home Medications 10/05/19 10/05/19 History Past Med/Surg History Medical History Abdominal aortic aneurysm (AAA) 3.0 cm to 5.0 cm in diameter in female Family History Father No problems noted. Mother No problems noted. Other Family history non-contributory Social History Smoking Status: Heavy tobacco smoker Second Hand Exposure: No; Do You Dip or Chew Tobacco: No; Tobacco Cessation Education Requested by Patient: No Hx Alcohol Use: Yes Alcohol type: wine Hx Substance Use: No Preferred Language: Pakistani Communication Ability: Effective Protective Signal Superintendent Required: No Beliefs That Will Affect Care: None Current Living Situation: Significant Other Feels Safe at Home: Yes Safety Concerns: Feels Safe At This Time Review of Systems Review of Systems: All systems reviewed & are unremarkable except as noted in HPI & below Physical Exam Constitutional: WD/WN, vitals as above Eyes: EOM intact bilaterally; no conjunctival abnormality ENMT: external ear and nose normal, oropharynx normal Neck: trachea midline, no thyromegaly normal visual inspection Respiratory: normal respiratory effort, lungs clear to auscultation no respiratory distress Cardiovascular: RRR, no murmur, no edema Gastrointestinal (Abdomen): Inspection/Auscultation: abdomen normal to inspection; abdomen not distended Percussion/Palpation: abdomen soft; abdomen nontender, no guarding and abdomen not rigid Musculoskeletal: no cyanosis or clubbing, extremities motor strength 5/5 Skin: no rashes, warm and dry Neurologic: moves all extremities and awake Psychiatric: Orientation: alert, oriented to person and cooperative Results & Data Results & Data ([facility]) Vital Signs (Past 12 Hours) Vital Signs Temp Pulse Pulse Pulse Resp BP BP 10/05/19 12:50 164/86 H 10/05/19 11:54 37 C 73 20 194/105 H 10/05/19 11:05 37 C 69 70 18 190/101 H 10/05/19 09:44 74 22 196/118 H 10/05/19 09:00 68 21 188/97 H 10/05/19 08:30 72 16 182/106 H 10/05/19 08:00 70 23 181/106 H 10/05/19 07:30 63 17 185/91 H 10/05/19 07:26 67 20 173/93 H 10/05/19 07:00 70 21 173/93 H 10/05/19 06:30 70 20 179/97 H 10/05/19 06:00 65 19 185/86 H 10/05/19 05:35 74 15 157/91 H 10/05/19 05:00 68 17 172/100 H 10/05/19 04:30 63 16 219/101 H 10/05/19 04:00 67 19 224/99 H 10/05/19 03:49 16 209/109 H 10/05/19 03:31 62 22 225/136 H BP Pulse Ox 10/05/19 12:50 10/05/19 11:54 204/118 H 97 10/05/19 11:05 195/75 H 98 10/05/19 09:44 97 10/05/19 09:00 96 10/05/19 08:30 92 10/05/19 08:00 95 10/05/19 07:30 97 10/05/19 07:26 10/05/19 07:00 97 10/05/19 06:30 99 10/05/19 06:00 99 10/05/19 05:35 99 10/05/19 05:00 99 10/05/19 04:30 99 10/05/19 04:00 96 10/05/19 03:49 96 10/05/19 03:31 95 Code Status & VTE Plan VTE Prophylaxis Plan VTE Prophylaxis will be ordered: Yes PG Care Time/CCT Total # of Minutes Spent Total Time Spent with Patient: Total time spent is greater than 50% in coordination of care (as documented) at patient's floor/unit and/or counseling patient: Coding Level of Care Code 12179 Initial Inpt Care Lvl 3 Diagnoses Abdominal pain R10.32 Abdominal location: left lower quadrant Hypertension I10 Hypertension type: unspecified Abdominal aortic aneurysm (AAA) 3.0 cm to 5.0 cm in diameter in female I71.4 Tobacco abuse Z72.0 DVT prophylaxis Z29.9 (1) Abdominal pain Abdominal location: left lower quadrant Qualified Code(s): R10.32 - Left lower quadrant pain (2) Hypertension Hypertension type: unspecified Qualified Code(s): I10 - Essential (primary) hypertension
--- NOTE | 2019-10-05 17:40 | Discharge Summary ---
Date of Service October 05, 2019 Admission HPI Per Admitting Provider 78yo F w/ hx of tobacco use presents for abdominal pain that began this morning at ~1-2am. Per patient, the pain is a sharp, squeezing pain, 2-3/10 that has been constant since it began. She reports that it was accompanied by some nausea and dry heaves this morning, but this has passed and she is no longer nauseated. She received fentanyl in the ED and reports the pain is mildly improved. She denies any diarrhea, constipation, hematochezia, hematemesis, melena, or other concerning symptoms. Denies fevers or chills, denies weight loss, denies shortness of breath or cough. She was initially agreeable to a colonoscopy; however, now reports she will not accept any procedures or surgery. Principal Diagnosis Abdominal pain Discharge Exam Constitutional WD/WN, vitals as above Eyes EOM intact bilaterally; no conjunctival abnormality ENMT external ear and nose normal, oropharynx normal Neck trachea midline, no thyromegaly normal visual inspection Respiratory normal respiratory effort, lungs clear to auscultation no respiratory distress Cardiovascular RRR, no murmur, no edema Gastrointestinal (Abdomen) Inspection/Auscultation: abdomen normal to inspection; abdomen not distended Percussion/Palpation: abdomen soft; abdomen nontender, no guarding and abdomen not rigid Musculoskeletal no cyanosis or clubbing, extremities motor strength 5/5 Skin no rashes, warm and dry Neurologic moves all extremities and awake Psychiatric Orientation: alert, oriented to person and cooperative Discharge Data Allergies Allergy/AdvReac Type Severity Reaction Status Date / Time milk AdvReac Intermediate NAUSEA/VOMI Verified 10/05/19 04:58 TING Consultations 10/05/19 08:05 ED Decision to Admit Stat 10/05/19 11:03 Consult Gastroenterology Routine Consult Vascular Surgery Routine Ordered Studies 10/05/19 02:40 CT abd pelvis IV con only Urgent 10/05/19 06:46 CT pelvis wo con Stat Hospital Course (1) Abdominal pain: CT a/p in the ED showed an area of thickening in the ileocecal area which may be causing her LLQ pain. - Patient initially agreeable to colonoscopy; however, now saying "she would r ather " than get any procedure or surgery. - As such, patient was warned of the risks of untreated colon cancer and agreed that she was willing to take those risks. Abdominal improving. Patient has called her SO to pick her up. (2) Hypertension: BP was as high as 240/110 in the ED and when first getting to the floor. - Started lisinopril 5 mg - Hydralazine PRN (3) Abdominal aortic aneurysm (AAA) 3.0 cm to 5.0 cm in diameter in female: Noted on CT a/p. 4.1 cm. - Seen by vascular surgery -> Recommend pt follow up in office in 6 months with aortoiliac US. Pt agreeable to this plan. (4) Tobacco abuse: Smokes ~1/4 ppd per patient. - Declines nicotine patch (5) DVT prophylaxis: SCDs - Patient is higher risk; however, holding heparin in case she agrees to a colonoscopy. Total Time Total Time Spent Total Time Spent (In Minutes): 35 Discharge Plan Discharge Items Patient Disposition: Home - Self-Care Reason For Visit: Abdominal pain Discharge Diagnosis: Abdominal pain - Possibly constipation, pulled muscle, or colorectal cancer Activity: Resume your previous activity Non-emergency contact: Primary Care Provider and Welfare Officer Call non-emergency contact if: your symptoms worsen and your pain is worsening Follow-up/Referrals: Braulio Goodrich MD [Physician] - (Please call Dr. Goodrich's office if you change your mind about the colonoscopy.) Jamarcus Burns MD [Physician] - (Please arrange an office visit for Dr. Burns in 6 months.) PCP,NO [Primary Care Provider] - Diet: Regular Addtl Attending Provider Instructions: Your abdominal pain improved in the hospital. It could be one of several things: 1) Pulled muscle from sit-ups -> This is possible, though it seems like this pain was different from your previous soreness after exercise. 2) Constipation -> You seem to have fairly irregular bowel movements. Try to take the Milk of Magnesia more regularly and try to have a bowel movement every other day. 3) Infection -> Possible, though you have no other signs of food poisoning or something of that nature. 4) Cancer -> It is possible you have cancer as you have never had a colonoscopy; however, you declined to have one this admission. If you change your mind, please call Dr. Goodrich's office, and he would be happy to do it as an outpatient. I did start you on a blood pressure pill as your blood pressure was very high. Please take this once per day in the evening. Please follow up with a PCP (family doctor) at your earliest ability. Pending Studies at Discharge: No Stand-Alone Forms: My [facility], Smoking Cessation Medications and DC Order Prescriptions: New lisinopril [Zestril] 5 mg Tablet 5 mg PO QAM Qty: 30 RF: 0 Discharge Orders: Discharge Order (Routine); Ordered 10/05/19 Ordered By: Hussain Willis Admission Data Admit Date/Time: 10/05/19 09:01 Attending Provider: Hussain Willis Admit Provider: Hussain Willis Primary Care Provider: PCP,NO Other Providers: Hussain Willis ; Braulio Goodrich ; Jamarcus Burns Coding Level of Care Code D/C Day Management >30 mins Diagnoses Abdominal pain R10.32 Abdominal location: left lower quadrant Hypertension I10 Hypertension type: unspecified Abdominal aortic aneurysm (AAA) 3.0 cm to 5.0 cm in diameter in female I71.4 Tobacco abuse Z72.0 DVT prophylaxis Z29.9
== END 2019-10-05 18:09 | disposition home or self-care (01) | DRG 392 ==
LOC: ED 02:14 → 3N 09:01

== ENCOUNTER 2019-10-29 16:18 | Inpatient (IN) ==
[2019-10-29] MEDS ORDERED: MoRPHine SULFATE 4 MG/ML 1 ML CARP\\VIAL IV STA (16:30)
[2019-10-29] MEDS ORDERED: ONDANSETRON INJ 2 MG/ML 2 ML VIAL IV STA (16:30)
[2019-10-29] MEDS ORDERED: SODIUM CHLORIDE 0.9% 1000ML 1,000 ML IV ONE (16:30)
--- NOTE | 2019-10-29 16:37 | Emergency Department Note ---
Impression & Plan Abdominal pain, Abnormal CT of the abdomen, Hypertension ED Provider Note NAME: KAREN TALBERT AGE: 78 SEX: F : 1940 ARRIVES VIA: Walk-In INFORMANT: Patient ED PROVIDER(S): Alban Estrada DO CHIEF COMPLAINT: Abdominal pain HPI: Patient is a 78-year-old female with a past medical history of tobacco abuse, sciatica, abdominal aortic aneurysm that presents the ER for infraumbilical abdominal pain. She describes as a squeezing pain which comes and goes in waves. It is a 5 out of 10. She had the same symptoms about a month ago. She notes that they are unable to tell her what the true cause of this was. She was admitted to the hospital. She denies any chest pain or shortness of breath. Admits to some nausea but no vomiting. Uncertain of when her last bowel movement was but she believes it was within the past 24 hours and may be had a small bowel movement. Denies any dysuria urgency or frequency. ROS: See above HPI for pertinent positives & negatives. A total of 10 systems reviewed and were otherwise negative. PAST MEDICAL HISTORY:See Below PAST SURGICAL HISTORY:See Below FAMILY HISTORY:See Below SOCIAL HISTORY:See Below HOME MEDICATIONS:See Below ALLERGIES:See Below VITALS:See Below PHYSICAL EXAMINATION: GENERAL: Sitting up in bed, alert, well appearing, well nourished, no distress, non-toxic EYE EXAM: normal conjunctiva. OROPHARYNX: no exudate, no erythema, lips, buccal mucosa, and tongue normal and mucous membranes are moist NECK: supple, no nuchal rigidity, no adenopathy, non-tender LUNGS: Clear to auscultation. Normal chest wall mechanics HEART: no murmurs, S1 normal and S2 normal ABDOMEN: abdomen soft, tender in LLQ, normo-active bowel sounds, no masses, no rebound or guarding. BACK: Back is symmetrical on inspection and there is no deformity, no midline tenderness, no CVA tenderness. SKIN: no rashes and no bruising UPPER EXTREMITIES: upper extremities are grossly normal. LOWER EXTREMITIES: No pitting edema. NEURO EXAM: Normal sensorium, cranial nerves II-XII grossly intact, normal speech, no gross weakness of arms, no gross weakness of legs. MEDICAL DECISION MAKING: Patient is a 78-year-old female who presents the ER for severe abdominal pain. Medical records were reviewed and recent admission for possible abdominal mass for which they recommended colonoscopy and she eventually declined and left. Also has abdominal aortic aneurysm. Blood pressures were initially 220. IV was established blood work was obtained. Labs show no significant leukocytosis or anemia. BMP was unremarkable as well as bilirubin and LFTs. Troponin was negative. Lipase unremarkable. UA with small amount hematuria. CT abdomen pelvis confirms the previous mass. Blood pressure was elevated 230 following IV morphine. Discussed with hospitalist for admission due to the elevated blood pressure. EKG was unremarkable. Patient had no chest pain or shortness of breath. Patient and were agreeable with admission. Triage Nursing notes reviewed. Prior medical records reviewed Vital Signs: reviewed and remarkable for HTN Differential diagnosis: Differential diagnoses includes but is not limited to gastritis, peptic ulcer di sease, GERD, gallbladder disease, pancreatitis, small bowel obstruction, acute coronary syndrome, pericarditis, ischemic bowel, irritable bowel disease, irritable bowel syndrome, appendicitis, diverticulitis, malignancy, hernia, urinary tract infection, torsion, perforation, trauma, infectious. ER treatment provided: See below Diagnostics interpreted by me: ECG: Sinus rhythm rate of 72 Left axis PVC Normal QTC Cardiac Monitoring: An order was placed for continuous cardiac monitoring. The monitor shows a rate of 74 with sinus rhythm. Laboratory studies: As stated above and show below. Imaging studies: CT abdomen pelvis shows bowel edema as well as questionable ileocecal mass Consultation(s): Discussed with hospitalist for admission. ED COURSE: Procedures: none Critical Care: None Past Med/Surg History Medical History (Updated 10/29/19 @ 20:27 by Alban Estrada DO) Abdominal aortic aneurysm (AAA) 3.0 cm to 5.0 cm in diameter in female Family History (Updated 10/05/19 @ 15:07 by Hussain Willis MD) Father No problems noted. Mother No problems noted. Other Family history non-contributory Social History Smoking Status: Current every day smoker Cigarettes Per Day: 6; Second Hand Exposure: No; Hx Alcohol Use: No Hx Substance Use: No Preferred Language: Pashto Communication Ability: Effective Bsa Officer Required: No Beliefs That Will Affect Care: None Current Living Situation: Significant Other Other Information That Helps Us Care for You: No Feels Safe at Home: Yes Safety Concerns: Feels Safe At This Time Allergies Allergies Allergy/AdvReac Type Severity Reaction Status Date / Time milk AdvReac Intermediate NAUSEA/VOMI Verified 10/29/19 17:38 TING Home Meds Previous Rx's Medication Instructions Recorded lisinopril [Zestril] 5 mg PO QAM #30 tab 10/05/19 Results & Data (ED) Vital Signs Vital Signs - 24 hr 10/29/19 16:19 10/29/19 17:27 10/29/19 18:09 Temperature 36.9 C Temperature Source Oral Pulse Rate 80 Pulse Rate [Left Finger] 74 70 Respiratory Rate 16 20 20 Respiratory Effort / Characteristics Non-Labored Respiratory Depth Normal Blood Pressure 227/128 H Blood Pressure [Right Arm] 231/108 H 246/106 H Blood Pressure Mean 161 Blood Pressure Mean [Right Arm] 149 152 Pulse Oximetry 98 98 98 Oxygen Delivery Method Room Air Sepsis Recent Fever Within 48 Hours No Sepsis New/Unexplained Change in Mental Status No Sepsis Action Taken by Nursing No Action Required Laboratory Data Result diagrams: 10/29/19 16:38 10/29/19 16:38 Lab Results 10/29/19 10/29/19 10/29/19 Range/Units 16:38 16:38 17:36 WBC 10.32 (4.8-10.8) K/uL RBC 5.64 H (4.2-5.4) M/uL Hgb 15.5 (12.0-16.0) g/dL Hct 48.1 H (37-47) % MCV 85.3 (80-100) fL MCH 27.5 (25-34) pg MCHC 32.2 (32-36) g/dL RDW Std Deviation 50.2 H (36.4-46.3) fL RDW Coeff of Paul 16.1 H (11.5-14.5) % Plt Count 232 (130-400) K/uL MPV 9.7 (7.4-10.4) fL Immature Gran % (Auto) 0.2 % Neut % (Auto) 90.3 % Lymph % (Auto) 4.4 % Swisher % (Auto) 4.7 % Eos % (Auto) 0.2 % Baso % (Auto) 0.2 % Neut # (Auto) 9.33 H (1.4-6.5) K/uL Lymph # (Auto) 0.45 L (1.2-3.4) K/uL Swisher # (Auto) 0.48 (0.11-0.59) K/uL Eos # (Auto) 0.02 (0-0.5) K/uL Baso # (Auto) 0.02 (0-0.2) K/uL Immature Gran # (Auto) 0.02 (0.00-0.02) K/uL Sodium 142 (136-145) mmol/L Potassium 3.7 (3.5-5.1) mmol/L Chloride 106 (98-107) mmol/L Carbon Dioxide 28 (21-32) mmol/L Anion Gap 8.0 (3-11) BUN 16 (7-18) mg/dl Creatinine 1.22 H (0.6-1.2) mg/dl Est Cr Clr Drug Dosing 32.3 ml/min Est GFR ( Amer) 48.8 Est GFR (Non-Af Amer) 42.1 BUN/Creatinine Ratio 12.8 (10-20) Glucose 129 H (70-99) mg/dl Calcium 8.7 (8.5-10.1) mg/dl Total Bilirubin 0.6 (0.2-1) mg/dl AST 14 L (15-37) U/L ALT 11 L (12-78) U/L Alkaline Phosphatase 88 (45-117) U/L Troponin I < 0.015 (0-0.045) ng/ml Total Protein 7.2 (6.4-8.2) gm/dl Albumin 3.1 L (3.4-5.0) gm/dl Globulin 4.1 H (2.5-4.0) gm/dl Albumin/Globulin Ratio 0.8 L (0.9-2) Lipase 59 L (73-393) U/L Urine Color Yellow Urine Appearance Clear (Clear) Urine pH 7.5 (4.5-7.5) Ur Specific [place]i 1.020 (1.000-1.030) Urine Protein Negative (Negative) Urine Glucose (UA) Negative (Negative) Urine Ketones 1+ H (Negative) Urine Blood 3+ H (Negative) Urine Nitrite Negative (Negative) Urine Bilirubin Negative (Negative) Urine Urobilinogen Negative (Negative) Ur Leukocyte Esterase Negative (Negative) Urine RBC 10-30 H (0-4) /hpf Urine WBC 0-5 (0-5) /hpf Ur Epithelial Cells 20-30 H (0-5) /lpf Urine Bacteria Negative (Negative) Hyaline Casts 0-5 (0-5) /lpf Administered Medications Discontinued Medications Sodium Chloride (Nss 1000ml) 1,000 mls @ 999 mls/hr IV .Q1H1M ONE Stop: 10/29/19 17:30 Last Infusion: 10/29/19 17:47 Dose: 0 mls/hr Documented by: [id number] Admin: 10/29/19 16:39 Dose: 999 mls/hr Documented by: [id number] Ioversol (Ioversol 100ml) 93 ml IV ONCE ONE Stop: 10/29/19 17:20 Last Admin: 10/29/19 17:19 Dose: 93 ml Documented by: [id number] Labetalol HCl (Labetalol Hcl Iv 5 Mg/Ml 20ml) 10 mg IV NOW STA Stop: 10/29/19 17:56 Last Admin: 10/29/19 18:07 Dose: 10 mg Documented by: [id number] Cosigned by: [id number] Morphine Sulfate (Morphine Sulfate 4 Mg/Ml 1 Ml Carp\Vial) 4 mg IV NOW STA Stop: 10/29/19 16:31 Last Admin: 10/29/19 16:40 Dose: 4 mg Documented by: [id number] Ondansetron HCl (Ondansetron Inj 2 Mg/Ml 2 Ml Vial) 4 mg IV NOW STA Stop: 10/29/19 16:31 Last Admin: 10/29/19 16:40 Dose: 4 mg Documented by: [id number] Discharge Plan Visit Data Chief Complaint: Abdominal Pain Stated Complaint: ABD PAIN ED Provider: Alban Estrada Discharge Problem: Abdominal pain, Abnormal CT of the abdomen, Hypertension Patient Disposition: Admitted As Inpatient Discharge Instructions Interventions: ED Discharge Assessment Last Done: 10/29/19 18:57 Discharge Problem: Abdominal pain Qualifiers: Abdominal location: unspecified location Qualified Code(s): R10.9 - Unspecified abdominal pain Hypertension Qualifiers: Hypertension type: unspecified Qualified Code(s): I10 - Essential (primary) hypertension
[2019-10-29 16:50] LABS: Basophils # (auto) 0.02 K/uL (0-0.2); Basophils % (auto) 0.2 %; Eosinophils # (auto) 0.02 K/uL (0-0.5); Eosinophils % (auto) 0.2 %; Hematocrit (blood only) 48.1 % (37-47); Hemoglobin 15.5 g/dL (12.0-16.0); Immature Granulocytes # (auto) 0.02 K/uL (0.00-0.02); Immature Granulocytes % (auto) 0.2 %; Lymphocytes # (auto) 0.45 K/uL (1.2-3.4); Lymphocytes % (auto) 4.4 %; Mean Corpuscular Hemoglobin 27.5 pg (25-34); Mean Corpuscular Hgb Conc 32.2 g/dL (32-36); Mean Corpuscular Volume 85.3 fL (80-100); Mean Platelet Volume 9.7 fL (7.4-10.4); Monocytes # (auto) 0.48 K/uL (0.11-0.59); Monocytes % (auto) 4.7 %; Neutrophils # (auto) 9.33 K/uL (1.4-6.5); Neutrophils % (auto) 90.3 %; Platelet Count 232 K/uL (130-400); RDW Coefficient of Variation 16.1 % (11.5-14.5); RDW Standard Deviation 50.2 fL (36.4-46.3); Red Blood Count 5.64 M/uL (4.2-5.4); White Blood Count 10.32 K/uL (4.8-10.8)
[2019-10-29 17:11] LABS: Alanine Aminotransferase 11 U/L (12-78); Albumin Level 3.1 gm/dl (3.4-5.0); Aspartate Aminotransferase 14 U/L (15-37); BUN Creatinine Ratio 12.8 (10-20); Blood Urea Nitrogen 16 mg/dl (7-18); Calcium 8.7 mg/dl (8.5-10.1); Carbon Dioxide 28 mmol/L (21-32); Chloride 106 mmol/L (98-107); Creatinine Clr Calc Pharmacy 32.3 ml/min; Est GFR (African American) 48.8; Est GFR (Non-African American) 42.1; Glucose 129 mg/dl (70-99); Lipase 59 U/L (73-393); Potassium 3.7 mmol/L (3.5-5.1); Sodium 142 mmol/L (136-145)
[2019-10-29 17:16] LABS: Albumin Globulin Ratio 0.8 (0.9-2); Alkaline Phosphatase 88 U/L (45-117); Bilirubin,Total 0.6 mg/dl (0.2-1); Globulin 4.1 gm/dl (2.5-4.0); Total Protein 7.2 gm/dl (6.4-8.2); Troponin I < 0.015 ng/ml (0-0.045)
[2019-10-29] MEDS ORDERED: IOVERSOL 100ml IV ONE (17:19)
--- NOTE | 2019-10-29 17:40 | CT Scan Report ---
CT abd pelvis IV con only CLINICAL HISTORY: periumbilical abd pain COMPARISON STUDY: 10/05/2019 TECHNIQUE: Patient was scanned in a dynamic helical fashion during intravenous administration of 93 c c of Optiray 320. A dose lowering technique was utilized adhering to the principles of ALARA. CT DOSE: 253.52 mGy.cm FINDINGS: Lower chest: There is respiratory motion artifact. 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 Liver: There is a stable left lobe hepatic cyst. There is trace perihepatic fluid. Gallbladder: Unremarkable. Spleen: No splenic masses are visualized. There is trace perisplenic fluid. Pancreas: Unremarkable. Adrenal glands: There is stable adrenal gland thickening Kidneys: There are multiple right renal cysts. There is no hydronephrosis. No solid renal masses are visualized. Bowel: There are no transition zones indicate bowel obstruction. There are multiple thick-walled smal l bowel loops, consistent with bowel angioedema (consider medication etiologies such as WESLEY inhibitor s), or an enteritis. There is no evidence of acute diverticulitis. There is a possible mass at the le jimmy of the ileocecal valve. There are no findings to indicate acute appendicitis Peritoneum: There is low volume ascites. There is no free intraperitoneal air Vasculature: There is a 41 mm infrarenal abdominal aortic aneurysm Adenopathy: None. Pelvic viscera: The bladder, and pelvic viscera are unremarkable. Skeletal structures: Postsurgical changes involve the left hip. 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 There are lower thoracic and lumbar compression fracture similar to the preceding study. IMPRESSION: 1. No evidence of bowel obstruction. No evidence of free air 2. Interval development of moderate small bowel wall edema. Likely diagnostic considerations include angioedema (consider medication etiology such as WESLEY inhibitors), or an enteritis. 3. Redemonstration of a possible mass at the level the ileocecal valve 4. Aneurysmal dilatation of the descending thoracic aorta, and infrarenal abdominal aorta. ACT 112: Negative or not required by law. Electronically signed by: Buck Olson M.D. 10/29/2019 5:38 PM
[2019-10-29 17:47] LABS: Appearance Urine Clear (Clear); Bilirubin Urine Negative (Negative); Blood Urine 3+ (Negative); Color Urine Yellow; Glucose Urine UA Negative (Negative); Ketones Urine 1+ (Negative); Leukocyte Esterase Urine Negative (Negative); Nitrite Urine Negative (Negative); Urobilinogen Urine Negative (Negative); pH Urine 7.5 (4.5-7.5)
[2019-10-29 17:50] LABS: Protein Urine Negative (Negative); Sulfosalicylic Acid Urine Negative (Negative)
[2019-10-29] MEDS ORDERED: LABETALOL HCL IV 5 MG/ML 20ML IV STA (17:55)
[2019-10-29 18:01] LABS: Bacteria Urine Negative (Negative); Epithelial Cell Urine 20-30 /lpf (0-5); Hyaline Casts Urine 0-5 /lpf (0-5); WBC Urine 0-5 /hpf (0-5)
--- NOTE | 2019-10-29 18:17 | History & Physical Report ---
Date of Service October 29, 2019 Assessment & Plan (1) Abnormal CT of the abdomen: (2) Abdominal pain: - Admit to [facility] with tele - Consult GI, previously followed with Leatha Soto, will anticipate colonoscopy tomorrow or Thursday, will make her NPO tonight. - CT abd reviewed: Interval development of moderate small bowel wall edema. Likely diagnostic considerations include angioedema (consider medication etiology such as WESLEY inhibitors), or an enteritis. Redemonstration of a possi ble mass at the level the ileocecal valve - Mass at the level of the ileocecal valve is concerning for malignancy, patient is agreeable to staying in the hospital for further work-up and likely scope on Thursday - Pain control with dilaudid - NSS @ 125 mL/h - Allow clear liquid diet, make n.p.o. after midnight tomorrow in anticipation of colonoscopy on Thursday morning - Check mesenteric US with elevated BP - Antiemetics with Zofran and Phenergan (3) Hypertension: - BP was as high as 240/110 in the ED , also comparable to the last ER visit on 10/04 - Started lisinopril 5 mg during last trip - will resume - Given dose of Lopressor 10 mg IV in the ER, blood pressure actually increased after this - pt admits that anxiety is likely provoking elevated blood pressure also likely due to acute dehydrationvomiting x2 days. Poor oral intake. - Started coreg 3.125 mg BID - Hydralazine PRN (4) Abdominal aortic aneurysm (AAA) 3.0 cm to 5.0 cm in diameter in female: - Noted on CT a/p. 4.1 cm. - Seen by vascular surgery on 10/04 --Recommend pt follow up in office in 6 months with aortoiliac US. (5) Tobacco abuse: - Smokes 6-7 cigarettes daily per patient. - Declines nicotine patch (6) DVT prophylaxis: - teds, heparin subcu CODE: Full code Dispo: From home, likely to remain in the hospital x 2 days History of Present Illness Primary Care Provider: NO PCP This is a 78 Yo F with PMHx of AAA, HTN, iliocecal mass, tobacco abuse, who presents for severe abdominal pain and found to be hypertensive with BP in 230s/ low 100s. She was recently evaluated here recently and admitted and discharged on 10/05/19 where she refused colonoscopy after being admitted and stated she did not want further workup. She is currently agreeable to colonoscopy. She reports that the pain has come on in the last week in waves, intermittent, and unpredictable. Pain sensation starts at the top of the epigastric region and seems to shoot down towards the pelvis. Her appetite has been poor recently, and yesterday she developed increased nausea and vomiting. She thinks she has vomited approximately 17 times in the last 48 hours, there is some blood streaking in her emesis, denies coffee-ground emesis. Bowel movements have been hard pellet like, typically move every other day. She denies diarrhea, hematochezia, BRBPR. Movement i.e. walking seems to improve the pain. Otherwise she has taken no [id number] meds for pain relief. In regards to her blood pressure she states that she has been taking lisinopril 5 mg since it was prescribed last time she left here on 10/04. Her significant other is at bedside who is requesting that we convince her to complete the work-up and figure out what is wrong. Patient admits to smoking 6 to 7 cigarettes/day but refuses a nicotine patch. She is requesting a cup of black coffee. Allergies Allergy/AdvReac Type Severity Reaction Status Date / Time milk AdvReac Intermediate NAUSEA/VOMI Verified 10/29/19 17:38 TING Home Medications Home Medications Medication Instructions Recorded Confirmed Type lisinopril [Zestril] 5 mg PO QAM #30 tab 10/05/19 10/29/19 Rx Past Med/Surg History Medical History (Updated 10/30/19 @ 11:20 by Apolinar Johnston) Abdominal aortic aneurysm (AAA) 3.0 cm to 5.0 cm in diameter in female Hypertension Family History (Updated 10/05/19 @ 15:07 by Hussain Willis MD) Father No problems noted. Mother No problems noted. 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 Feels Safe at Home: Yes Safety Concerns: Feels Safe At This Time Review of Systems Review of Systems: Constitutional: No fever, sweats or chills Eyes: No diplopia, no worsening or blurred vision ENT: normal hearing, no trouble swallowing Respiratory: No cough, sputum, dyspnea at rest or on exertion Cardiovascular: No chest pain, tightness or palpitations Abdomen: As per HPI Musculoskeletal: No joint pain, calf pain, swelling Neurologic: No weakness, numbness/tingling, or balance problems Psychiatric: No anxiety or depression Skin: No rash or itch Physical Exam Physical Exam: General: awake, alert, no apparent distress Head: Normocephalic, atraumatic ENT: PERRL, EOMI, no pharyngeal exudate, + mucous membranes dry Chest: + Diminished breath sounds throughout, on room air, no adventitious breath sounds Cardiac: Regular rate and rhythm, no murmur, no JVD, normal peripheral pulses, good capillary refill Abdominal: NABS x 4 quadrants, soft, nondistended, +tender to palpation in epigastric region, LUQ, LLL, no rebound, guarding Extremities: Normal inspection, no peripheral edema or erythema, calfs nontender to palpation Psych: Normal mood and affect Neuro: AAO x 3, strength intact bilaterally and rated 5/5, no motor deficits, speech is clear, no peripheral sensory deficits Skin: no rash or erythema Results & Data Results & Data ([facility]) Vital Signs (Past 12 Hours) Vital Signs Temp Pulse Pulse Resp BP BP Pulse Ox 10/29/19 17:27 74 20 231/108 H 98 10/29/19 16:19 36.9 C 80 16 227/[address] abd pelvis IV con only CLINICAL HISTORY: periumbilical abd pain COMPARISON STUDY: 10/05/2019 TECHNIQUE: Patient was scanned in a dynamic helical fashion during intravenous administration of 93 cc of Optiray 320. A dose lowering technique was utilized adhering to the principles of ALARA. CT DOSE: 253.52 mGy.cm FINDINGS: Lower chest: There is respiratory motion artifact. There is fusiform aneurysmal dilatation of the descending thoracic aorta which measures 4 cm in diameter. Liver: There is a stable left lobe hepatic cyst. There is trace perihepatic fluid. Gallbladder: Unremarkable. Spleen: No splenic masses are visualized. There is trace perisplenic fluid. Pancreas: Unremarkable. Adrenal glands: There is stable adrenal gland thickening Kidneys: There are multiple right renal cysts. There is no hydronephrosis. No solid renal masses are visualized. Bowel: There are no transition zones indicate bowel obstruction. There are multiple thick-walled small bowel loops, consistent with bowel angioedema (consider medication etiologies such as WESLEY inhibitors), or an enteritis. There is no evidence of acute diverticulitis. There is a possible mass at the level of the ileocecal valve. There are no findings to indicate acute appendicitis Peritoneum: There is low volume ascites. There is no free intraperitoneal air Vasculature: There is a 41 mm infrarenal abdominal aortic aneurysm Adenopathy: None. Pelvic viscera: The bladder, and pelvic viscera are unremarkable. Skeletal structures: Postsurgical changes involve the left hip. 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 There are lower thoracic and lumbar compression fracture similar to the preceding study. IMPRESSION: 1. No evidence of bowel obstruction. No evidence of free air 2. Interval development of moderate small bowel wall edema. Likely diagnostic considerations include angioedema (consider medication etiology such as WESLEY inhibitors), or an enteritis. 3. Redemonstration of a possible mass at the level the ileocecal valve 4. Aneurysmal dilatation of the descending thoracic aorta, and infrarenal abdominal aorta. ECG Additional Comments: 29-OCT-2019 16:51:00 [facility]-EDSTAT ROUTINE RETRIEVAL Poor data quality, interpretation may be adversely affected Sinus rhythm with occasional Premature ventricular complexes Left axis deviation Abnormal ECG When compared with ECG of 05-OCT-2019 02:38, Premature ventricular complexes are now Present Borderline criteria for Inferior infarct are no longer Present 25mm/s 10mm/mV 150Hz 9.0.9 12SL 241 HD AUGUST: 12 Referred by: REFERRED SELF Unconfirmed Vent. rate 72 BPM CA interval 164 ms QRS duration 94 ms QT/QTc 410/448 ms P-R-T axes 111 -69 80 Code Status & VTE Plan Code Status Full code-discussed with the patient at bedside Supervising Physician Co-Signing Physician Notes Attending Attestation & Admission Note: Pt seen/examined, chart reviewed, admission care plan d/w ROCIO Price. I agree w/ the eller components of her admission documentation. 78yo female with long-standing tobacco dependence, HTN, and known AAA - presenting with increasing frequency of abdominal pain episodes for 4-6+ weeks associated with weight loss and appetite loss. Eating does seem to make pain worse. Pain not worsened by activity. Pain is worst in the lower quadrants. "Feels like someone is squeezing my insides." Quality, location, and other features of the pain have not really changed since her previous hospitalization. She is aware of the ilealcecal mass seen on CT today/previous stay and seems agreeable to colonoscopy for definitive dx. PMH, allergies, meds, sochx, famhx - reviewed vitals - BPs markedly elevated gen - thin, NAD neck - no JVD heart - RRR, s1 s2 lungs - CTA b/l abd - soft, tender b/l lower quadrants, BS+, no HSM, no mass palpated ext - no edema CT abd/pelvis reviewed labs reviewed A/P: 1. abdominal pain x 4-6+ weeks - increasing frequency 2. known ilealcecal mass 3. small bowel thickening/edema seen on CT today - NEW 4. hematuria 5. chronic tobacco dependence of many years 6. uncontrolled HTN * pain control for #1 * needs c-scope for definitive dx of #2 * #3 - check mesenteric doppler to exclude mesenteric ischemia as cause of small bowel thickening; uncertain if small bowel findings today are related to the mass seen * consider urine cytologies for #4 * offered nicoderm - declined; counselor camp to quit tobacco use * #6 - add coreg to WESLEY; I do not think WESLEY is contributing to abdominal symptoms or signs on CT; continue WESLEY Apolinar Johnston MD PG Care Time/CCT Total # of Minutes Spent Total Time Spent with Patient: Total time spent is greater than 50% in coordination of care (as documented) at patient's floor/unit and/or counseling patient: Coding Level of Care Code 31616 Initial Inpt Care Lvl [address] of the abdomen R93.5 Abdominal pain R10.32 Abdominal location: left lower quadrant Hypertension I10 Hypertension type: unspecified Abdominal aortic aneurysm (AAA) 3.0 cm to 5.0 cm in diameter in female I71.4 Tobacco abuse Z72.0 DVT prophylaxis Z29.9 (1) Abdominal pain Abdominal location: left lower quadrant Qualified Code(s): R10.32 - Left lower quadrant pain (2) Hypertension Hypertension type: unspecified Qualified Code(s): I10 - Essential (primary) hypertension
[2019-10-29] MEDS ORDERED: ACETAMINOPHEN 325 MG TAB PO PRN (19:26)
[2019-10-29] MEDS ORDERED: ONDANSETRON INJ 2 MG/ML 2 ML VIAL IV PRN (19:26)
[2019-10-29] MEDS ORDERED: PROMETHAZINE HCL 6.25 MG in SODIUM CHLORIDE 0.9% 50 ML IV PRN (19:26)
[2019-10-29] MEDS ORDERED: HydrALAZINE HCL 20 MG/ML VIAL IV PRN ×2 (19:26→20:48)
[2019-10-29] MEDS ORDERED: HYDROmorphone INJ 0.5 MG/0.5 ML SYR IV PRN (19:26)
[2019-10-29] MEDS: SODIUM CHLORIDE 0.9% 1000ML 1,000 ML IV SCH (20:44)
[2019-10-29] MEDS: HEPARIN SOD 5,000 UNIT/0.5 ML VIAL SQ SCH (20:48)
[2019-10-29] MEDS: carvediloL 3.125 MG TAB PO SCH (21:42)
[2019-10-30] MEDS: SODIUM CHLORIDE 0.9% 1000ML 1,000 ML IV SCH ×3 (04:27→23:42)
[2019-10-30] MEDS: HEPARIN SOD 5,000 UNIT/0.5 ML VIAL SQ SCH ×2 (06:09→15:05)
[2019-10-30 07:21] LABS: Hematocrit (blood only) 40.3 % (37-47); Mean Corpuscular Hemoglobin 27.5 pg (25-34); Mean Corpuscular Hgb Conc 32.3 g/dL (32-36); Mean Corpuscular Volume 85.2 fL (80-100); Mean Platelet Volume 9.8 fL (7.4-10.4); Platelet Count 228 K/uL (130-400); RDW Coefficient of Variation 16.4 % (11.5-14.5); RDW Standard Deviation 51.8 fL (36.4-46.3); Red Blood Count 4.73 M/uL (4.2-5.4); White Blood Count 6.34 K/uL (4.8-10.8)
[2019-10-30 07:30] LABS: INR 1.1 (0.9-1.1); Prothrombin Time 11.2 Seconds (9.0-12.0)
[2019-10-30 07:53] LABS: Albumin Level 2.7 gm/dl (3.4-5.0); BUN Creatinine Ratio 12.5 (10-20); Calcium 8.2 mg/dl (8.5-10.1); Creatinine Clr Calc Pharmacy 40.2 ml/min; Est GFR (African American) 63.6; Est GFR (Non-African American) 54.9; Potassium 3.6 mmol/L (3.5-5.1)
[2019-10-30 07:55] LABS: Albumin Globulin Ratio 0.8 (0.9-2); Bilirubin,Total 0.6 mg/dl (0.2-1); Globulin 3.5 gm/dl (2.5-4.0); Total Protein 6.2 gm/dl (6.4-8.2)
[2019-10-30] MEDS: carvediloL 3.125 MG TAB PO SCH ×2 (07:56→20:59)
--- NOTE | 2019-10-30 08:55 | Ultrasound Report ---
US duplex mesenteric CLINICAL HISTORY: abdominal pain, tobacco use, PAD COMPARISON STUDY: CT scan dated 10/29/2019 FINDINGS: There is a 44 mm infrarenal abdominal aortic aneurysm The peak systolic velocity within the aorta was 44 cm/s. The peak systolic velocity within the celiac artery was 186 cm/s. The peak systolic velocity within the superior mesenteric artery was 271 cm/s. IMPRESSION: 1. Borderline elevated velocities which do not meet strict criteria for hemodynamically significant s tenosis. If further evaluation is desired, CT angiography would be recommended in follow-up. 2. 44 mm infrarenal abdominal aortic aneurysm. ACT 112: Negative or not required by law. Electronically signed by: Buck Olson M.D. 10/30/2019 8:54 AM
[2019-10-30] MEDS ORDERED: lisinopriL 5 MG TAB PO SCH (09:00)
--- NOTE | 2019-10-30 18:26 | Hospitalist Progress Note ---
Date of Service October 30, 2019 Assessment & Plan (1) Nausea & vomiting: Presented with intractable nausea/vomiting and lower abdominal pain. With similar presentation 1 month ago and left the hospital without getting colonoscopy that was recommended as there is a possible ileocecal mass on imaging Also here with moderate small bowel wall edema new from previous CT scan on 10/04 which radiologist notes could include in the differential angioedema of the bowel or an enteritis. Of note, she was started on lisinopril in the last admission. Nausea vomiting is now completely resolved with taking a clear liquids only diet -Consult GI for colonoscopy which is planned for tomorrow -Start bowel prep tonight -N.p.o. after midnight Received IV fluids and antiemetics (2) Abdominal pain: -Abdominal pain secondary to bowel edema or enteritis, likely had somewhat of a partial bowel obstruction secondary to either the bowel edema or the ileocecal mass - CT abd reviewed: Interval development of moderate small bowel wall edema. Likely diagnostic considerations include angioedema (consider medication etiology such as WESLEY inhibitors), or an enteritis. Redemonstration of a possible mass at the level the ileocecal valve Mesenteric Doppler of the abdomen negative for significant hemodynamic stenosis --Pain control as needed -Discontinue WESLEY inhibitor in case contributing -For colonoscopy tomorrow (3) Abnormal CT of the abdomen: As noted above (4) Hypertension: - BP was as high as 240/110 in the ED , also comparable to the last ER visit on 10/04, is now much improved but remains somewhat elevated -Discontinue lisinopril in case causing angioedema of the bowel -Was started on Coreg on admission-we will increase dose to 6.25 mg p.o. twice daily - Hydralazine PRN (5) Abdominal aortic aneurysm (AAA) 3.0 cm to 5.0 cm in diameter in female: - Noted on CT a/p. 4.1 cm. - Seen by vascular surgery on 10/04 --Recommend pt follow up in office in 6 months with aortoiliac US. (6) Tobacco abuse: - Smokes 6-7 cigarettes daily per patient. - Declines nicotine patch Encouraged smoking cessation (7) Microscopic hematuria: Urinalysis both last time and this time with microscopic hematuria She is a heavy smoker for many years Advised her she will need outpatient follow-up with urology (8) Thoracic aortic aneurysm: Noted to have a descending thoracic aortic aneurysm of 4.0 cm Needs outpatient follow-up Blood pressure control (9) DVT prophylaxis: - kailey, will hold heparin SQ for colonoscopy tomorrow CODE: Full code Dispo: Stable for downgrade to medical surgical floor from PCU, continued stay Admission and Anticipated Discharge Date Admission Date: October 29, 2019 Subjective Patient reports she feels much better than yesterday since being on the clear liquids diet. She still has some lower abdominal pain but not nearly as severe as yesterday. She has not vomited since yesterday when she had 17 episodes of vomiting clear yellow fluid. Last bowel movement was 2 mornings ago. She is willing to have a colonoscopy to further evaluate the possible ileocecal mass. She denies any blood in her stool. She did have a small amount of blood in her vomit after many episodes of vomiting but none since then. She reports since discharge several weeks ago from the hospital, she was actually tolerating a regular diet up until 2 days ago. Her significant other later joined us in the room and had multiple questions about her condition and the plan which we reviewed in detail. At first, the patient questioned if she even needed to stay and wondered why she needed to have this work-up. But after thorough discussion, she is agreeable to stay for colonoscopy tomorrow. She notes she has never had a colonoscopy or EGD. She has never had a mammogram. She has not seen a doctor in approximately at least 10 years. She is not taking any medications at home and continues to smoke 5 cigarettes/day. 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 No urinary symptoms like dysuria or urinary urgency or frequency. Physical Exam Constitutional: WD/WN, vitals as above Eyes: + anicteric sclerae Neck: trachea midline, no thyromegaly Respiratory: normal respiratory effort, lungs clear to auscultation Cardiovascular: RRR, no murmur, no edema Chest (Breasts): Chest: normal inspection of chest Gastrointestinal (Abdomen): Inspection/Auscultation: abdomen normal to inspection and normal bowel sounds; abdomen not distended Percussion/Palpation: + abdomen tender (Mild across the lower abdomen without guarding or rebound tenderness) and abdomen soft; no guarding, abdomen not rigid and no hepatosplenomegaly Musculoskeletal: Extremities: extremities normal to inspection; no cyanosis and no clubbing Skin: no rashes, warm and dry Neurologic: moves all extremities and awake; no focal motor deficits Psychiatric: A+Ox3, euthymic affect Lymphatic: no lymphedema Results & Data Results & Data ([facility]) Vital Signs (Past 12 Hours) Vital Signs Temp Pulse Resp BP Pulse Ox 10/30/19 15:46 36.5 C 52 L 18 139/63 96 10/30/19 12:00 36.7 C 59 L 16 135/79 99 10/30/19 07:06 36.8 C 60 17 168/83 H 93 Laboratory Results 10/30/19 10/30/19 10/30/19 Range/Units 06:47 06:47 06:47 WBC 6.34 (4.8-10.8) K/uL RBC 4.73 (4.2-5.4) M/uL Hgb 13.0 (12.0-16.0) g/dL Hct 40.3 (37-47) % MCV 85.2 (80-100) fL MCH 27.5 (25-34) pg MCHC 32.3 (32-36) g/dL RDW Std Deviation 51.8 H (36.4-46.3) fL RDW Coeff of Paul 16.4 H (11.5-14.5) % Plt Count 228 (130-400) K/uL MPV 9.8 (7.4-10.4) fL PT 11.2 (9.0-12.0) Seconds INR 1.1 (0.9-1.1) Sodium 141 (136-145) mmol/L Potassium 3.6 (3.5-5.1) mmol/L Chloride 107 (98-107) mmol/L Carbon Dioxide 28 (21-32) mmol/L Anion Gap 6.0 (3-11) BUN 12 (7-18) mg/dl Creatinine 0.98 (0.6-1.2) mg/dl Est Cr Clr Drug Dosing 40.2 ml/min Est GFR ( Amer) 63.6 Est GFR (Non-Af Amer) 54.9 BUN/Creatinine Ratio 12.5 (10-20) Glucose 85 (70-99) mg/dl Calcium 8.2 L (8.5-10.1) mg/dl Magnesium 2.0 (1.8-2.4) mg/dl Total Bilirubin 0.6 (0.2-1) mg/dl AST 12 L (15-37) U/L ALT 9 L (12-78) U/L Alkaline Phosphatase 73 (45-117) U/L Total Protein 6.2 L (6.4-8.2) gm/dl Albumin 2.7 L (3.4-5.0) gm/dl Globulin 3.5 (2.5-4.0) gm/dl Albumin/Globulin Ratio 0.8 L (0.9-2) PG Care Time/CCT Total # of Minutes Spent Total Time Spent with Patient: Total time spent is greater than 50% in coordination of care (as documented) at patient's floor/unit and/or counseling patient: Coding Level of Care Code 76061 Subseq Hosp Care Lvl 3 Diagnoses Nausea & vomiting R11.2 Abdominal pain R10.9 Abdominal location: unspecified location Abnormal CT of the abdomen R93.5 Hypertension I10 Hypertension type: unspecified Abdominal aortic aneurysm (AAA) 3.0 cm to 5.0 cm in diameter in female I71.4 Tobacco abuse Z72.0 Microscopic hematuria R31.29 Thoracic aortic aneurysm I71.2 DVT prophylaxis Z29.9 (1) Abdominal pain Abdominal location: unspecified location Qualified Code(s): R10.9 - Unspecified abdominal pain (2) Hypertension Hypertension type: unspecified Qualified Code(s): I10 - Essential (primary) hypertension
--- NOTE | 2019-10-30 18:44 | Gastrointestinal Consultation ---
Date of Consultation October 30, 2019 Assessment & Plan (1) Abdominal pain: CT scan 10/04: Fecal retention. 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 Stool-filled mildly prominent terminal ileum. AAA of 4.1 cm. Mural thrombus but no critical stenosis. Mesenteric US now showed no stenosis. CT scan now showed similar IC valve mass like. Possible enteritis, ?WESLEY related angioedema. Recommend: Bowel prep today for colonoscopy tomorrow. Change WESLEY-i to another antihypertensive agent. (2) Abnormal CT of the abdomen: History of Present Illness Attending Physician: Maria Guadalupe Waller MD 78 years old female patient with medical comorbids of HTN, AAA, presented with recurrent lower abdominal pain, Last month she was seen for the same and CT scan showed an ileocecal mass however she did not stay for the colonoscopy. Denies diarrhea, constipation, melena or rectal bleeding. No weight changes. No ongoing nausea or vomiting. Allergies Allergy/AdvReac Type Severity Reaction Status Date / Time milk AdvReac Intermediate NAUSEA/VOMI Verified 10/29/19 17:38 TING Home Medications Home Medications Medication Instructions Recorded Confirmed Type lisinopril [Zestril] 5 mg PO QAM #30 tab 10/05/19 10/29/19 Rx Patient History Medical History (Updated 10/30/19 @ 11:20 by Apolinar Johnston) Abdominal aortic aneurysm (AAA) 3.0 cm to 5.0 cm in diameter in female Hypertension Family History (Updated 10/05/19 @ 15:07 by Hussain Willis MD) Father No problems noted. Mother No problems noted. 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 Feels Safe at Home: Yes Safety Concerns: Feels Safe At This Time Review of Systems Constitutional: no fever, no chills, no fatigue and no weight loss Eyes: no eye pain and no worsening vision Ear, Nose, Mouth, Throat: no tinnitus, no dizziness, no nasal discharge and no epistaxis Respiratory: no cough, no dyspnea, no dyspnea on exertion and no wheezing Cardiovascular: no chest pain, no orthopnea, no palpitations and no edema Gastrointestinal: as per Subjective / HPI Genitourinary: no dysuria, no urinary frequency, no urinary incontinence and no hematuria Musculoskeletal: no stiffness and no myalgia Neurologic: no localized weakness, no paralysis, no tremor(s) and no headache(s) Endocrine: no polydipsia and no polyuria Hematologic / Lymphatic: no easy bleeding and no night sweats Physical Exam Constitutional: + well hydrated, cooperative and comfortable Eyes: PERRL, conjunctivae normal, anicteric sclerae ENMT: external ear and nose normal, oropharynx normal Neck: normal visual inspection and trachea midline Respiratory: normal respiratory effort, lungs clear to auscultation Auscultation: no wheezes Cardiovascular: RRR, no murmur, no edema Gastrointestinal (Abdomen): normal bowel sounds, soft, nontender, no hepatosplenomegaly Musculoskeletal: no cyanosis or clubbing, extremities motor strength 5/5 Skin: no rashes, warm and dry Neurologic: awake; no focal motor deficits Motor/Sensory: no tremor Results & Data ([facility]) Vital Signs (Past 12 Hours) Vital Signs Temp Pulse Resp BP Pulse Ox 10/30/19 15:46 36.5 C 52 L 18 139/63 96 10/30/19 12:00 36.7 C 59 L 16 135/79 99 10/30/19 07:06 36.8 C 60 17 168/83 H 93 Laboratory Results Laboratory Results - last 24 hr 10/30/19 10/30/19 10/30/19 06:47 06:47 06:47 WBC 6.34 RBC 4.73 Hgb 13.0 Hct 40.3 MCV 85.2 MCH 27.5 MCHC 32.3 RDW Std Deviation 51.8 H RDW Coeff of Paul 16.4 H Plt Count 228 MPV 9.8 PT 11.2 INR 1.1 Sodium 141 Potassium 3.6 Chloride 107 Carbon Dioxide 28 Anion Gap 6.0 BUN 12 Creatinine 0.98 Est Cr Clr Drug Dosing 40.2 Est GFR ( Amer) 63.6 Est GFR (Non-Af Amer) 54.9 BUN/Creatinine Ratio 12.5 Glucose 85 Calcium 8.2 L Magnesium 2.0 Total Bilirubin 0.6 AST 12 L ALT 9 L Alkaline Phosphatase 73 Total Protein 6.2 L Albumin 2.7 L Globulin 3.5 Albumin/Globulin Ratio 0.8 L (1) Abdominal pain Abdominal location: unspecified location Qualified Code(s): R10.9 - Unspecified abdominal pain
[2019-10-30] MEDS: POLYETHYLENE (MIRALAX) 17 GM PACK PO SCH (21:00)
--- NOTE | 2019-10-30 22:54 | Electrocardiogram Report ---
Test Reason : Blood Pressure : / mmHG Vent. Rate : 072 BPM Atrial Rate : 072 BPM P-R Int : 164 ms QRS Dur : 094 ms QT Int : 410 ms P-R-T Axes : 111 -69 080 degrees QTc Int : 448 ms Poor data quality, interpretation may be adversely affected Sinus rhythm with occasional Premature ventricular complexes Left axis deviation Abnormal ECG When compared with ECG of 05-OCT-2019 02:38, Premature ventricular complexes are now Present Borderline criteria for Inferior infarct are no longer Present Confirmed by Kirk Moran ([id number]) on 10/30/2019 10:54:03 PM Referred By: REFERRED SELF Confirmed By:Kirk Moran
[2019-10-31] MEDS: POLYETHYLENE (MIRALAX) 17 GM PACK PO SCH (05:31)
[2019-10-31 05:59] LABS: Albumin Level 2.5 gm/dl (3.4-5.0); BUN Creatinine Ratio 13.3 (10-20); Calcium 7.9 mg/dl (8.5-10.1); Creatinine Clr Calc Pharmacy 49.9 ml/min; Est GFR (African American) 82.5; Est GFR (Non-African American) 71.2; Magnesium 2.1 mg/dl (1.8-2.4); Potassium 3.4 mmol/L (3.5-5.1)
[2019-10-31 06:02] LABS: Albumin Globulin Ratio 0.8 (0.9-2); Bilirubin,Total 0.6 mg/dl (0.2-1); Total Protein 5.5 gm/dl (6.4-8.2)
[2019-10-31] MEDS: carvediloL 6.25 MG TAB PO SCH ×2 (08:10→20:07)
--- NOTE | 2019-10-31 09:28 | History & Physical Bridge Note ---
Date of Service October 31, 2019 History & Physical Bridge Note I have examined the patient, reviewed the H&P in the original GI consultation and in the interval since the performance of the History & Physical I have noted the following changes of clinical significance: no changes noted. Prep completed. Patient NPO. If blood pressure is adequately controlled, proceed with colonoscopy today with Dr. Goodrich.
[2019-10-31] MEDS: POTASSIUM CHLORIDE / WTR 10 MEQ/100 ML PLCT IV SCH ×2 (09:35→12:45)
--- NOTE | 2019-10-31 12:13 | Hospitalist Progress Note ---
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 With similar presentation 1 month ago and left the hospital without getting colonoscopy that was recommended as there is a possible ileocecal mass on imaging Also here with moderate small bowel wall edema new from previous CT scan on 10/04 which radiologist notes could include in the differential angioedema of the bowel or an enteritis. Of note, she was started on lisinopril in the last admission. no further vomiting, tolerating diet, no abdominal pain (3) Abdominal pain: could be due to intermittent obstruction from terminal ileum mass could be due to small bowel wall edema seen on CT no pain today, advance diet will stop Lisinopril as a potential cause of small bowel wall edema (4) Abnormal CT of the abdomen: As noted above (5) Hypertension: - BP was as high as 240/110 in the ED , also comparable to the last ER visit on 10/04, is now much improved but remains somewhat elevated -Discontinue lisinopril in case causing angioedema of the bowel -BP better today on Coreg but still > 170 systolic most of the time continue Coreg 6.25mg BID add Norvasc 5mg daily (6) Abdominal aortic aneurysm (AAA) 3.0 cm to 5.0 cm in diameter in female: - Noted on CT a/p. 4.1 cm. - Seen by vascular surgery on 10/04 --Recommend pt follow up in office in 6 months with aortoiliac US. (7) Tobacco abuse: - Smokes 6-7 cigarettes daily per patient. - Declines nicotine patch Encouraged smoking cessation (8) Microscopic hematuria: Urinalysis both last time and this time with microscopic hematuria She is a heavy smoker for many years Advised her she will need outpatient follow-up with urology (9) Thoracic aortic aneurysm: Noted to have a descending thoracic aortic aneurysm of 4.0 cm Needs outpatient follow-up Blood pressure control (10) DVT prophylaxis: - kailey, will hold heparin SQ for colonoscopy tomorrow CODE: Full code Dispo: Stable for downgrade to medical surgical floor from PCU, continued stay Admission and Anticipated Discharge Date Admission Date: October 29, 2019 Subjective patient feeling fine today she tolerated bowel prep, ambulating in the halls, waiting for her colonoscopy we discussed the possible findings of an ileocecal mass and need for surgical consult she was unsure that she would want surgery updated her son at the bedside prior to scope colonoscopy results reviewed, found to have a partially obstructing mass in the terminal ileum will allow to eat tonight, she was stable after procedure reviewed blood pressure, improved since the initiation of Coreg but still not at goal HR in the 60s so no room to increase Coreg will add Norvasc tomorrow Review of Systems Review of Systems: All systems reviewed & are unremarkable except as noted in Subjective Physical Exam Constitutional: WD/WN, vitals as above Eyes: PERRL, conjunctivae normal, anicteric sclerae ENMT: external ear and nose normal, oropharynx normal Neck: trachea midline, no thyromegaly Respiratory: normal respiratory effort, lungs clear to auscultation Cardiovascular: RRR, no murmur, no edema Gastrointestinal (Abdomen): normal bowel sounds, soft, nontender, no hepatosplenomegaly Musculoskeletal: no cyanosis or clubbing, extremities motor strength 5/5 Skin: no rashes, warm and dry Neurologic: patellar DTR's 2+ bilat, sensation intact and PERRL, EOMI, accommodation nl, no face palsy, no dysarthria Psychiatric: A+Ox3, euthymic affect Lymphatic: no cervical or axillary lymphadenopathy Results & Data Results & Data ([facility]) Vital Signs (Past 12 Hours) Vital Signs Temp Pulse Resp BP Pulse Ox 10/31/19 09:04 177/97 H 10/31/19 07:54 36.7 C 57 L 18 184/92 H 92 Laboratory Results Laboratory Results - last 24 hr 10/31/19 05:28 Sodium 144 Potassium 3.4 L Chloride 112 H Carbon Dioxide 29 Anion Gap 3.0 BUN 11 Creatinine 0.79 Est Cr Clr Drug Dosing 49.9 Est GFR ( Amer) 82.5 Est GFR (Non-Af Amer) 71.2 BUN/Creatinine Ratio 13.3 Glucose 84 Calcium 7.9 L Magnesium 2.1 Total Bilirubin 0.6 AST 14 L ALT 10 L Alkaline Phosphatase 65 Total Protein 5.5 L Albumin 2.5 L Globulin 3.0 Albumin/Globulin Ratio 0.8 L Medications Administered Current Inpatient Medications Acetaminophen (Acetaminophen 325 Mg Tab) 650 mg PO Q4H PRN PRN Reason: Moderate Pain Stop: 11/28/19 19:25 Carvedilol (Carvedilol 6.25 Mg Tab) 6.25 mg PO BID XU Stop: 11/30/19 08:59 Last Admin: 10/31/19 08:10 Dose: 6.25 mg Documented by: Hydralazine HCl (Hydralazine Hcl 20 Mg/Ml Vial) 10 mg IV Q6H PRN PRN Reason: BP Stop: 11/28/19 19:25 Hydromorphone HCl (Hydromorphone Inj 0.5 Mg/0.5 Ml Syr) 0.5 mg IV Q3H PRN PRN Reason: Pain Stop: 11/12/19 19:25 Last Admin: 10/29/19 21:47 Dose: 0.5 mg Documented by: Promethazine HCl 6.25 mg/ (Sodium Chloride) 50.25 mls @ 201 mls/hr IV Q6H PRN PRN Reason: Nausea And Vomiting Stop: 11/28/19 19:25 Ondansetron HCl (Ondansetron Inj 2 Mg/Ml 2 Ml Vial) 4 mg IV Q4H PRN PRN Reason: Nausea And Vomiting Stop: 11/28/19 19:25 Potassium Chloride (Potassium Chloride 20 Meq Tabcr) 20 meq PO BID XU Stop: 11/30/19 20:59 PG Care Time/CCT Total # of Minutes Spent Total Time Spent with Patient: Total time spent is greater than 50% in coordination of care (as documented) at patient's floor/unit and/or counseling patient: Coding Level of Care Code 72070 Subseq Hosp Care Lvl 2 Diagnoses 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
--- NOTE | 2019-10-31 13:35 | Medical Student Progress Note ---
Date of Service October 31, 2019 Assessment & Plan (1) Abnormal CT of the abdomen: Abnormal CT of the abdomen: First hospitalized September 2019 for abdominal pain, denied colonoscopy at that time after CT showed possible ileocecal valve mass, small bowel wall edema, and fecal retention. Presented again to hospital Thursday, agreeable to colonoscopy for further work-up. -Awaiting colonoscopy for 10/30 afternoon -Completed prep -NPO, full-diet following colonoscopy Hypertension: In ED, patient had BP up to 240/110 (similar to September 2019 presentation). In September, received Lisinopril. Now having BPS 170s-180s/90s. -D/C Lisinopril as dose too low to significantly control BP and may be contributing to bowel edema. -Hydralazine PRN (Sys >180) -Carvedilol (Coreg) on admission, increase 6.25 mg Abdominal Aortic Aneurysm: Noted to be 4.[address] -Seen by vascular in September 2019, and was advised for aortoiliac U/S in 6 months Tobacco abuse: Ongoing cigarette use, 6-7 cigarettes a day -Declines nicotine patch -Encourage F/U with PCP Chronic Disease Management -Given multiple comorbidities of the patient and lack of medical care for past 10 years, encourage follow-up with PCP to establish care and help patient maintain her currently active social life. Dispo: Code: Full code Med-surg DVT Prophylaxis: SCDs (2) Thoracic aortic aneurysm: (3) Microscopic hematuria: (4) Nausea & vomiting: (5) Hypertension: Hypertension type: unspecified Qualified Code(s): I10 - Essential (primary) hypertension (6) DVT prophylaxis: (7) Tobacco abuse: (8) Abdominal aortic aneurysm (AAA) 3.0 cm to 5.0 cm in diameter in female: (9) Family history non-contributory: (10) Abdominal pain: Abdominal location: unspecified location Qualified Code(s): R10.9 - Unspecified abdominal pain (11) Sciatica: Admission and Anticipated Discharge Date Admission Date: October 29, 2019 Subjective Consuelo is 78F w/ PMHx of HTN, AAA (4.1 cm), and recurrent abdominal pain. Presented to ED on Thursday with nausea/vomiting and infraumbilical abdominal pain. Had similar presententation 10/05/19 but did not desire colonoscopy at that time. Now receiving ongoing work-up for possible ileocecal mass seen on CT. This morning, Consuelo says she does not have any abdominal pain. Has had ongoing bowel movements due to colonoscopy prep. Still is very hesitant about receiving care and colonoscopy as she has not had medical care in about 10 years. Accompanied in room by son. No SOB, no CP, no issues with urination, no blood in stool Physical Exam Physical Exam: General: Sitting comfortably in bed, no acute distress Abdomen: Pain described as "squeezing" infraumbilically on palpation Results & Data ([facility]) Vital Signs (Past 12 Hours) Vital Signs Temp Pulse Resp BP Pulse Ox 10/31/19 09:04 177/97 H 10/31/19 07:54 36.7 C 57 L 18 184/92 H 92
[2019-10-31] MEDS ORDERED: HydrALAZINE HCL 20 MG/ML VIAL IV STA (15:40)
--- NOTE | 2019-10-31 15:53 | Anesthesiology Consultation ---
Date of Service October 31, 2019 Assessment & Plan (1) Encounter for pre-operative examination: Chart Review Chart Review: Acceptable Risk for Surgery and Patient NOT seen in Pre Admission Testing Consults Requested none ASA ASA3 Proposed Anesthesia Anesthesia Type: MAC Risk / Benefits Reviewed With: PT / POA / Parent / Guardian, Accepts Plan and Informed Consent Obtained History Surgery Operation Date: 10/31/19 16:40 Proposed Procedures p Colonoscopy Dr. Joleen Goodrich MD Height/Weight Height: 5 ft 4 in Weight: 56.1 kg Allergies Allergy/AdvReac Type Severity Reaction Status Date / Time milk AdvReac Intermediate NAUSEA/VOMI Verified 10/31/19 15:26 TING Medications Home Medications Medication Instructions Recorded Confirmed Last Taken lisinopril [Zestril] 5 mg PO QAM #30 tab 10/05/19 10/29/19 Unknown Active Medications Generic Name Dose Route Start Last Admin Trade Name Freq PRN Reason Stop Dose Admin Carvedilol 6.25 mg 10/31/19 09:00 10/31/19 08:10 Carvedilol 6.25 Mg Tab PO 11/30/19 08:59 6.25 mg BID XU Administration Hydromorphone HCl 0.5 mg 10/29/19 19:26 10/29/19 21:47 Hydromorphone Inj 0.5 Mg/0.5 Ml Syr IV 11/12/19 19:25 0.5 mg Q3H PRN Administration Pain NPO Date Last Intake of Fluids: 10/31/19 Time Last Intake of Fluids: 13:00 Last Intake of Fluids Comment: sip of water Date Last Intake of Solids: 10/28/19 Time Last Intake of Solids: 21:00 Past Medical History Medical History Abdominal aortic aneurysm (AAA) 3.0 cm to 5.0 cm in diameter in female Hypertension Microscopic hematuria Thoracic aortic aneurysm Exercise / Class Metabolic Activity II 4-5 Yardwork/Stairs/Walk up hill Negative for chest pain or shortness of breath. Past Family History Family History Father No problems noted. Mother No problems noted. Other Family history non-contributory Past Surgical History Surgical History History of repair of left hip joint Past Anesthesia History No Hx of Anesthesia Complications History of PONV No Hx of PONV Social History Smoking Status: Current every day smoker tobacco type: cigarettes Smoking cigarettes per day: 6 Hx Alcohol Use: No Alcohol type: wine alcohol intake frequency: holidays/special occasions only Hx Substance Use: No substance use type: does not use Review of Systems Patient denies active symptoms of GERD. Physical Exam Vital Signs Last Vital Signs Temp 37.2 C 10/31/19 15:28 Pulse 55 L 10/31/19 15:28 Resp 16 10/31/19 15:28 BP 231/147 H 10/31/19 15:28 Pulse Ox 96 10/31/19 15:28 Constitutional not obese ENMT Mouth: + dentures and + edentulous; no TMJ abnormality and oral opening not small Thyromental Distance: > or= 3.5 Finger Breadths Mallampati Class: II Neck normal visual inspection; neck extension not limited Respiratory normal respiratory effort Auscultation: lungs clear to auscultation bilaterally Cardiovascular Rate/Rhythm: regular rate and regular rhythm Heart Sounds: no murmur Neurologic moves all extremities Psychiatric Orientation: alert and oriented x 3 Testing Laboratory Results 10/30/19 06:47 10/31/19 05:28 PT 11.2 Seconds (9.0-12.0) 10/30/19 06:47 INR 1.1 (0.9-1.1) 10/30/19 06:47 Urine Color Yellow 10/29/19 17:36 Urine Appearance Clear (Clear) 10/29/19 17:36 Urine pH 7.5 (4.5-7.5) 10/29/19 17:36 Ur Specific Dinosaur 1.020 (1.000-1.030) 10/29/19 17:36 Urine Protein Negative (Negative) 10/29/19 17:36 Urine Glucose (UA) Negative (Negative) 10/29/19 17:36 Urine Ketones 1+ (Negative) H 10/29/19 17:36 Urine Nitrite Negative (Negative) 10/29/19 17:36 Ur Leukocyte Esterase Negative (Negative) 10/29/19 17:36 Urine RBC 10-30 /hpf (0-4) H 10/29/19 17:36 Urine WBC 0-5 /hpf (0-5) 10/29/19 17:36 Ur Epithelial Cells 20-30 /lpf (0-5) H 10/29/19 17:36
[2019-10-31] MEDS ORDERED: ENDOSCOPIC MARKER 5 ML SYR TOP ONE (16:08)
[2019-10-31] MEDS ORDERED: LIDOCAINE HCL 2% 2 ML VIAL/AMP(20MG/ML) INFIL ONE (16:09)
--- NOTE | 2019-10-31 16:54 | GI REPORT ---
Patient Name: Consuelo Rich Procedure Date: 10/31/2019 3:51 PM Date of : 1940 Admit Type: Inpatient Age: 78 Gender: Female Attending MD: Braulio Goodrich MD Procedure: Colonoscopy Providers: Braulio Goodrich MD Referring MD: Referred Self Indications: Abnormal CT of the GI tract Medicines: Monitored Anesthesia Care Complications: No immediate complications. Estimated blood loss: None. Estimated Blood Loss: Estimated blood loss: none. Procedure: Pre-Anesthesia Assessment: - Prior Anticoagulants: The patient has taken no previous anticoagulant or antiplatelet agents. - ASA Grade Assessment: III - A patient with severe systemic disease. After I obtained informed consent, the scope was passed under direct vision. Throughout the procedure, the patient's blood pressure, pulse, and oxygen saturations were monitored continuously. The Colonoscope was introduced through the anus and advanced to the terminal ileum, with identification of the appendiceal orifice and IC valve. The colonoscopy was performed without difficulty. The patient tolerated the procedure well. The quality of the bowel preparation was fair. Findings: The terminal ileum contained a submucosal partially obstructing medium-sized mass. The mass was partially circumferential (involving two-thirds of the lumen circumference). No bleeding was present. Estimated blood loss: none. Biopsies were taken with a cold forceps for histology. Estimated blood loss: none. Cecum was tattooed with an injection of 2 mL of Fernanda ink. Estimated blood loss: none. Internal hemorrhoids were found. The hemorrhoids were medium-sized. Impression: - Preparation of the colon was fair. - Rule out malignancy, partially obstructing tumor in the terminal ileum. Biopsied. Tattooed. - Internal hemorrhoids. Recommendation: - Return patient to hospital [facility] for ongoing care. - Clear liquid diet today. - surgical consultation for resection/evaluation - obtain CT chest with contrast -oncology evaluation Braulio Goodrich MD 10/31/2019 4:53:39 PM This report has been signed electronically. Note Initiated On: 10/31/2019 3:51 PM Number of Addenda: 0 I attest to the content of the Intraoperative Record and orders documented therein, exceptions below {[id number]}
--- NOTE | 2019-10-31 16:55 | Procedure Note ---
Procedure Note Date of Service October 31, 2019 GI brief procedure note colonoscopy submucosal partially obstructing TI mass noted. biopsied, tattoo'd with aline ink 2 mL. Recs: --surgical consultation for resecton/evaluation --oncology consultation --f/u path results --clear liquid diet --supportive care --rest as per primary team see procedure note for full details Braulio Goodrich MD Gastroenterology Coding
--- NOTE | 2019-10-31 17:50 | Anesthesiology Progress Note ---
Date of Service October 31, 2019 Anesthesia Post Procedure Vital Signs Vital Signs: Temp Pulse Resp BP BP Pulse Ox 10/31/19 17:15 36.7 C 66 16 169/84 H 95 10/31/19 17:08 67 20 187/90 H 97 10/31/19 16:53 73 20 181/91 H 100 10/31/19 16:38 37.2 C 72 25 H 188/91 H 100 10/31/19 15:28 37.2 C 55 L 16 231/147 H 96 10/31/19 09:04 177/97 H 10/31/19 07:54 36.7 C 57 L 18 184/92 H 92 10/30/19 23:41 36.9 C 64 16 171/89 H 95 10/30/19 20:15 36.5 C 63 16 185/66 H 94 Pain Intensity Abdomen: Pain Intensity: 5 Transfer of Care Handoff Completed per policy Notes Mental Status: alert / awake / arousable Patient Amnestic to Procedure: Yes Nausea / Vomiting: adequately controlled Pain: adequately controlled Airway Patency, RR, SpO2: stable & adequate BP & HR: stable & adequate Hydration State: stable & adequate Anesthetic Complications: no major complications apparent
[2019-10-31] MEDS: POTASSIUM CHLORIDE 20 MEQ TABCR PO SCH (20:07)
[2019-11-01 07:05] LABS: Albumin Level 2.5 gm/dl (3.4-5.0); BUN Creatinine Ratio 11.7 (10-20); Calcium 8.5 mg/dl (8.5-10.1); Creatinine Clr Calc Pharmacy 49.9 ml/min; Est GFR (African American) 82.5; Est GFR (Non-African American) 71.2; Potassium 3.4 mmol/L (3.5-5.1)
[2019-11-01 07:08] LABS: Albumin Globulin Ratio 0.8 (0.9-2); Bilirubin,Total 0.6 mg/dl (0.2-1); Globulin 3.1 gm/dl (2.5-4.0); Total Protein 5.6 gm/dl (6.4-8.2)
[2019-11-01] MEDS: POTASSIUM CHLORIDE 20 MEQ TABCR PO SCH (07:16)
[2019-11-01] MEDS: carvediloL 6.25 MG TAB PO SCH (07:16)
[2019-11-01] MEDS ORDERED: AMLODIPINE BESYLATE 5 MG TAB PO SCH (09:00)
[2019-11-01] MEDS ORDERED: IOVERSOL 100ml IV ONE (09:23)
--- NOTE | 2019-11-01 09:35 | CT Scan Report ---
CT SCAN OF THE CHEST WITH IV CONTRAST CLINICAL HISTORY: Ileal mass. COMPARISON STUDY: Chest x-ray dated 02/06/2013. Abdominal CT dated 10/29/2019. TECHNIQUE: Following the IV administration of 92 cc of Optiray 320, CT scan of the thorax was perform ed from the thoracic inlet to the upper abdomen. Images are reviewed in the axial, sagittal, and sebastián nal planes. IV contrast was administered without complication. A dose lowering technique was utilize d adhering to the principles of ALARA. CT DOSE: 180.02 mGy.cm FINDINGS: Thyroid: Imaged portions of the thyroid gland are normal in size and attenuation. Thoracic aorta: There is atherosclerotic calcification of the thoracic aorta. There is mild ectasia o f the ascending thoracic aorta which measures up to 3.8 cm in diameter. There is also ectasia of the descending thoracic aorta which measures up to 3.6 cm above the diaphragmatic hiatus. Intraluminal th rombus is noted. The arch demonstrates standard 3-vessel anatomy. No dissection is seen. Pulmonary vasculature: The pulmonary trunk is normal in caliber. There are no filling defects identif ied in the central pulmonary vessels to indicate pulmonary embolus. Note that this examination was no t protocoled for evaluation of the pulmonary arteries. Heart: The heart is enlarged and without pericardial effusion. The coronary arteries are densely calc ified. Lungs and pleural spaces: Evaluation of the lung parenchyma is degraded by motion artifact. Emphysema tous change is noted. There are trace pleural effusions, left larger than right with associated bibas ilar atelectasis. No concerning pulmonary lesion is identified. The trachea and central airways are c lear. Mild diffuse peribronchial thickening is observed. Mediastinum: There is no mediastinal lymphadenopathy. Lilly: Clear. Axillae: There is no axillary lymphadenopathy. Upper abdomen: Partially visualized upper abdominal viscera is within normal limits. Skeletal structures: The skeletal structures are osteopenic. There are moderate compression deformity of the T7 and T8. There is a mild to moderate superior endplate compression deformity of T12. There is associated hyperkyphosis of the thoracic spine. No lytic or blastic bony lesions are seen. IMPRESSION: 1. Cardiomegaly and emphysema. 2. Trace pleural effusions with bibasilar atelectasis. 3. There is no airspace consolidation typical for pneumonia. 4. Mild diffuse peribronchial thickening suggests bronchitis/reactive airway disease. Clinical correl ation will be required. 5. Advanced coronary artery calcification. 6. Additional findings as above. ACT 112: Negative or not required by law. Electronically signed by: Nataloi Valadez M.D. 11/01/2019 9:34 AM
--- NOTE | 2019-11-01 10:00 | Medical Student Progress Note ---
Date of Service November 01, 2019 Assessment & Plan (1) Abnormal CT of the abdomen: Abnormal CT of the abdomen: First hospitalized September 2019 for abdominal pain, denied colonoscopy at that time after CT showed possible ileocecal valve mass, small bowel wall edema, and fecal retention. Received colonoscopy 10/30. Shoed terminal ileum submucosal mass, partially obstructing (2/3 circumferential[address] Chest w/ Contrast this morning.Prepare for D/C today and follow-up with PCP and surgery. -Advance diet as tolerated -General surgery consult -CT chest w/ contrast -Path results were benign, no signs of malignancy Hypertension: Still having BPs 160s-190s/90s. 10/30 afternoon as high as 231/147. Was started on Norvasc. -Cont Carvedilol 6.25 mg PO BID -Cont Amlodipine Besylate (Norvasc) 5mg PO QAM (added yesterday) -Hydralazine Hcl 10 mg IV PRN (Sys >180, DBP >110) -Patient educaton on risks of high blood pressure Abdominal Aortic Aneurysm: Noted to be 4.[address] -Seen by vascular in September 2019, and was advised for aortoiliac U/S in 6 months Tobacco abuse: Ongoing cigarette use, 6-7 cigarettes a day -Declines nicotine patch -Encourage F/U with PCP Chronic Disease Management -Given multiple comorbidities of the patient and lack of medical care for past 10 years, encourage follow-up with PCP to establish care and help patient maintain her currently active social life. Dispo: Code: Full code Med-surg DVT Prophylaxis: SCDs Admission and Anticipated Discharge Date Admission Date: October 29, 2019 Subjective This morning Consuelo's main concern is wanting to go home as she's not sure why she needs to be in hospital right now. Says main goal is to go home and get back to her active life (working, exercises, etc) Had colonoscopy yesterday, tolerating full diet; awaiting CT scan Today she says she has no abdominal pain but sometimes discomfort/cramping when you push on it. No BM yet since colonoscopy, urinating w/o issue BPs still high in 160s-180s/90s Plan for D/C today Review of Systems Constitutional: as per Subjective / HPI Cardiovascular: no chest pain Gastrointestinal: + diarrhea/loose stools (secondary to colonoscopy prep); no abdominal pain, no nausea and no vomiting Genitourinary: no dysuria and no difficulty urinating Physical Exam Physical Exam: General: Sitting comfortably in bed, no acute distress Cardiovascular: RRR, no murmurs, rubs, gallops Pulmonary: Coarse rhonchi b/l upper lung ramirez inspiratory and expiratory Abdomen: firm but non-distended abdomen, no guarding, NT to palpation. Psych: A&Ox3, appropriate affect Results & Data ([facility]) Vital Signs (Past 12 Hours) Vital Signs Temp Pulse Resp BP BP Pulse Ox 11/01/19 08:00 187/93 H 11/01/19 07:14 36.7 C 56 L 16 189/94 H 97 10/31/19 23:14 37.1 C 63 15 153/72 H 95
--- NOTE | 2019-11-01 11:25 | Discharge Summary ---
Date of Service November 01, 2019 Admission HPI Per Admitting Provider This is a 78 Yo F with PMHx of AAA, HTN, iliocecal mass, tobacco abuse, who presents for severe abdominal pain and found to be hypertensive with BP in 230s/ low 100s. She was recently evaluated here recently and admitted and discharged on 10/05/19 where she refused colonoscopy after being admitted and stated she did not want further workup. She is currently agreeable to colonoscopy. She reports that the pain has come on in the last week in waves, intermittent, and unpredictable. Pain sensation starts at the top of the epigastric region and seems to shoot down towards the pelvis. Her appetite has been poor recently, and yesterday she developed increased nausea and vomiting. She thinks she has vomited approximately 17 times in the last 48 hours, there is some blood streaking in her emesis, denies coffee-ground emesis. Bowel movements have been hard pellet like, typically move every other day. She denies diarrhea, hematochezia, BRBPR. Movement i.e. walking seems to improve the pain. Otherwise she has taken no aqxh-[id number]-jwxtqrs meds for pain relief. In regards to her blood pressure she states that she has been taking lisinopril 5 mg since it was prescribed last time she left here on 10/04. Her significant other is at bedside who is requesting that we convince her to complete the work-up and figure out what is wrong. Patient admits to smoking 6 to 7 cigarettes/day but refuses a nicotine patch. She is requesting a cup of black coffee. Principal Diagnosis Small bowel tumor, terminal ileum Discharge Exam Constitutional WD/WN, vitals as above Eyes PERRL, conjunctivae normal, anicteric sclerae ENMT external ear and nose normal, oropharynx normal Neck trachea midline, no thyromegaly Respiratory normal respiratory effort, lungs clear to auscultation Cardiovascular RRR, no murmur, no edema Gastrointestinal (Abdomen) normal bowel sounds, soft, nontender, no hepatosplenomegaly Musculoskeletal no cyanosis or clubbing, extremities motor strength 5/5 Skin no rashes, warm and dry Neurologic patellar DTR's 2+ bilat, sensation intact and PERRL, EOMI, accommodation nl, no face palsy, no dysarthria Psychiatric A+Ox3, euthymic affect Lymphatic no cervical or axillary lymphadenopathy Discharge Data Allergies Allergy/AdvReac Type Severity Reaction Status Date / Time milk AdvReac Intermediate NAUSEA/VOMI Verified 10/31/19 15:26 TING Consultations 10/29/19 17:55 ED Decision to Admit Stat 10/29/19 19:26 Consult Gastroenterology Routine Procedures Performed Operation Date: 10/31/19 16:40 Actual Procedures p Colonoscopy Biopsy Cytology - Braulio Goodrich MD Ordered Studies 10/29/19 16:30 CT abd pelvis IV con only Stat 10/30/19 20:47 US duplex mesenteric Routine 11/01/19 07:53 CT chest w con Urgent Hospital Course (1) Small bowel tumor: CT of the abdomen pelvis with probably tumor/mass at the ileocecal junction colonoscopy on 10/30 with mass in the terminal ileum biopsies done -- benign tissue, no malignant cells noted, could have been poor sample CT chest shows no signs of metastatic disease yeyo discussion with patient that she could develop bowel obstruction even though the biopsy was benign, still feel she needs a referral to general surgery will refer to Dr. Parikh for his opinion urged patient to follow up with him to consider the options advised her to follow low fiber diet, stay well hydrated (2) Nausea & vomiting: Presented with intractable nausea/vomiting and lower abdominal pain. With similar presentation 1 month ago and left the hospital without getting colonoscopy that was recommended as there is a possible ileocecal mass on imaging Also here with moderate small bowel wall edema new from previous CT scan on 10/04 which radiologist notes could include in the differential angioedema of the bowel or an enteritis. Of note, she was started on lisinopril in the last admission. no further vomiting, tolerating diet, no abdominal pain lisinopril stopped for small bowel wall edema (3) Abdominal pain: could be due to intermittent obstruction from terminal ileum mass could be due to small bowel wall edema seen on CT no pain for two days, advance diet, tolerating well will stop Lisinopril as a potential cause of small bowel wall edema (4) Abnormal CT of the abdomen: As noted above (5) Hypertension: - BP was as high as 240/110 in the ED , also comparable to the last ER visit on 10/04, is now much improved but remains somewhat elevated -Discontinue lisinopril in case causing angioedema of the bowel -BP better today on Coreg but still > 170 systolic most of the time continue Coreg 6.25mg BID add Norvasc 5mg daily BP better but not at goal will discharge on Coreg 6.25mg BID and Norvasc 10mg daily set her up with new PCP for blood pressure check on 11/08 (6) Abdominal aortic aneurysm (AAA) 3.0 cm to 5.0 cm in diameter in female: - Noted on CT a/p. 4.1 cm. - Seen by vascular surgery on 10/04 --Recommend pt follow up in office in 6 months with aortoiliac US. advised her to stop smoking, control her blood pressure to reduce risk of this rapidly expanding (7) Tobacco abuse: - Smokes 6-7 cigarettes daily per patient. - Declines nicotine patch Encouraged smoking cessation, counseled again at time of discharge (8) Microscopic hematuria: Urinalysis both last time and this time with microscopic hematuria She is a heavy smoker for many years Advised her she will need outpatient follow-up with urology but this can wait until small bowel tumor dealt with (9) Thoracic aortic aneurysm: Noted to have a descending thoracic aortic aneurysm of 4.0 cm Needs outpatient follow-up Blood pressure control Total Time Total Time Spent Total Time Spent (In Minutes): 33 minutes Total Time Includes: Examination of the Patient, Discharge Planning, Medication Reconciliation and Other (discussion with her significant other) Discharge Plan Discharge Items Patient Disposition: Home - Self-Care Reason For Visit: ABDOMINAL PAIN,ILEOCECAL MASS Discharge Diagnosis: Terminal ileum mass (small bowel tumor) Hypertension Abdominal pain Condition on Discharge: Good Goals: take carvedilol and amlodipine for hypertension follow up with general surgery for surgical evaluation Activity: Resume your previous activity Driving/Machine Use: Resume 1 day after discharge Weightbearing: Full weightbearing Non-emergency contact: Primary Care Provider Call non-emergency contact if: you have any medication questions and your symptoms worsen Follow-up/Referrals: Brijesh Parikh DO [Surgeon] - (2-3 weeks, Diagnosis: small bowel tumor) Lolis Abdullahi MD [Primary Care Provider] - 11/09/19 1:10 pm (A new PCP appt./hospital follow up appt. has been arranged for you on at 1:10pm with Dr. Lolis Abdullahi with [facility], building in front of hospital. Their office will call you with an appt. reminder.) Diet: Low Sodium (2gm) Addtl Attending Provider Instructions: Medications: - AMLODIPINE: 10mg daily, this is for blood pressure, take every morning - CORE.25mg twice a day, this is for blood pressure Small bowel tumor, found in terminal ileum pathology came back as benign tissue, but may have just been a superficial sample at risk for bowel obstruction if not removed strongly recommend follow up with Dr. Parikh, general surgeon, to discuss surgical resection as we discussed, CT of the abdomen, pelvis and chest showed no signs of metastatic disease for time being, follow a low fiber diet, stay well hydrated to keep from getting obstructed Hypertension quite elevated, likely elevated for a long time since you don't follow with a family doctor recommend low sodium diet recommend the above medications to control pressure follow up with new PCP Pending Studies at Discharge: No Stand-Alone Forms: My [facility] [employer], Smoking Cessation Medications and DC Order Prescriptions: New amlodipine 10 mg tablet 10 mg PO QAM 30 Days Qty: 30 RF: 3 carvedilol 6.25 mg Tablet 6.25 mg PO BID 30 Days Qty: 60 RF: 3 Discontinued lisinopril [Zestril] 5 mg Tablet 5 mg PO QAM Qty: 30 RF: 0 Discharge Orders: Discharge Order (Routine); Ordered 11/01/19 Ordered By: Paddy Hsu Admission Data Admit Date/Time: 10/29/19 18:18 Attending Provider: Paddy Hsu Admit Provider: Apolinar Johnston Primary Care Provider: Lolis Abdullahi Other Providers: Apolinar Johnston ; Prasanth Baez Other Interventions: Discharge Summary Assessment (RN) Last Done: 10/31/19 16:59 Coding Level of Care Code D/C Day Management >30 mins Diagnoses Small bowel tumor D49.0 Nausea & vomiting R11.2 Abdominal pain R10.9 Abdominal location: unspecified location Abnormal CT of the abdomen R93.5 Hypertension I10 Hypertension type: unspecified Abdominal aortic aneurysm (AAA) 3.0 cm to 5.0 cm in diameter in female I71.4 Tobacco abuse Z72.0 Microscopic hematuria R31.29 Thoracic aortic aneurysm I71.2
== END 2019-11-01 13:45 | disposition home or self-care (01) | DRG 395 ==
LOC: ED 16:18 → SUATTDRO 18:18 → 2S 18:18 → 3E 10-30 17:48

== ENCOUNTER 2020-09-23 14:13 | Inpatient (IN) ==
[2020-09-23] MEDS ORDERED: ACETAMINOPHEN 1,000 MG/100 ML VIAL IV STA (14:46)
[2020-09-23] MEDS ORDERED: niCARdipine 25 MG in SODIUM CHLORIDE 0.9% 240 ML IV PRN (14:46)
--- NOTE | 2020-09-23 15:08 | XRay Report ---
XR humerus RT 2V HISTORY: 79 years-old Female Pt c/o Rt shoulder pain acute right shoulder pain COMPARISON: Chest radiograph of same day TECHNIQUE: 2 views of the right humerus FINDINGS: Demineralized appearance of the bones. There is an acute mildly comminuted fracture of the proximal r ight humerus which includes a surgical neck fracture displaced laterally 6 mm. Greater trochanteric f racture is displaced laterally 5 mm. No dislocation. Moderate glenohumeral with mild AC joint osteoar thritis. Soft tissue swelling surrounds the shoulder. The imaged lung ramirez appear clear. IMPRESSION: 1. Acute mildly comminuted and slightly displaced right proximal humeral fracture. 2. No dislocation. ACT 112: Negative or not required by law. The above report was generated using voice recognition software. It may contain grammatical, syntax o r spelling errors. Electronically signed by: Mike Don M.D. 09/23/2020 3:07 PM
--- NOTE | 2020-09-23 15:11 | XRay Report ---
XR chest 1V portable HISTORY: 79 years-old Female Stroke Like Symptoms acute strokelike symptoms COMPARISON: Right humerus radiographs of same day, acute abdominal series radiographs 05/05/2020 TECHNIQUE: Portable AP view the chest FINDINGS: Cardiomegaly. Hiatal hernia. Calcified plaque of the thoracic aorta with tortuosity. No pneumothorax, pleural effusion, airspace consolidation or overt pulmonary edema. Acute right humeral fracture is p artially imaged. IMPRESSION: 1. No acute cardiopulmonary abnormality. 2. Acute mildly displaced right proximal humeral fracture. ACT 112: Negative or not required by law. The above report was generated using voice recognition software. It may contain grammatical, syntax o r spelling errors. Electronically signed by: Mike Don M.D. 09/23/2020 3:09 PM
[2020-09-23] MEDS: HYDROmorphone INJ 0.5 MG/0.5 ML SYR IV PRN ×2 (15:46→17:47)
[2020-09-23 15:55] LABS: Basophils # (auto) 0.01 K/uL (0-0.2); Basophils % (auto) 0.1 %; Eosinophils # (auto) 0.03 K/uL (0-0.5); Eosinophils % (auto) 0.3 %; Hematocrit (blood only) 39.9 % (37-47); Hemoglobin 12.6 g/dL (12.0-16.0); Immature Granulocytes # (auto) 0.04 K/uL (0.00-0.02); Immature Granulocytes % (auto) 0.4 %; Lymphocytes % (auto) 5.4 %; Mean Corpuscular Hemoglobin 26.9 pg (25-34); Mean Corpuscular Hgb Conc 31.6 g/dL (32-36); Mean Corpuscular Volume 85.1 fL (80-100); Mean Platelet Volume 9.1 fL (7.4-10.4); Monocytes % (auto) 5.4 %; Neutrophils # (auto) 9.81 K/uL (1.4-6.5); Neutrophils % (auto) 88.4 %; Platelet Count 187 K/uL (130-400); RDW Coefficient of Variation 16.8 % (11.5-14.5); RDW Standard Deviation 52.5 fL (36.4-46.3); Red Blood Count 4.69 M/uL (4.2-5.4); White Blood Count 11.09 K/uL (4.8-10.8)
[2020-09-23 16:09] LABS: INR 1.1 (0.9-1.1); Partial Thromboplastin Time 25.8 Seconds (21.0-31.0); Prothrombin Time 11.4 Seconds (9.0-12.0)
[2020-09-23 16:21] LABS: Alanine Aminotransferase 10 U/L (12-78); Albumin Level 3.2 gm/dl (3.4-5.0); Aspartate Aminotransferase 12 U/L (15-37); BUN Creatinine Ratio 20.1 (10-20); Blood Urea Nitrogen 16 mg/dl (7-18); Calcium 8.4 mg/dl (8.5-10.1); Carbon Dioxide 26 mmol/L (21-32); Chloride 108 mmol/L (98-107); Est GFR (African American) 80.7 ml/min; Est GFR (Non-African American) 69.6 ml/min; Glucose 165 mg/dl (70-99); Potassium 3.6 mmol/L (3.5-5.1); Sodium 140 mmol/L (136-145)
[2020-09-23 16:23] LABS: Creatine Kinase MB 1.8 ng/ml (0.5-3.6)
[2020-09-23 16:26] LABS: Albumin Globulin Ratio 0.9 (0.9-2); Alkaline Phosphatase 87 U/L (45-117); Bilirubin,Total 0.4 mg/dl (0.2-1); Globulin 3.7 gm/dl (2.5-4.0); Total Protein 6.9 gm/dl (6.4-8.2); Troponin I < 0.015 ng/ml (0-0.045)
[2020-09-23] MEDS ORDERED: OPTIRAY 320 100ml IV ONE (16:36)
--- NOTE | 2020-09-23 17:17 | CT Scan Report ---
CT head/brain wo con CLINICAL HISTORY: 79 years-old Female with Pt c/o found on floor. Acute head trauma status post fall . The patient was found down. TECHNIQUE: Multiple axial CT images of the head were obtained without contrast. A dose lowering tech nique was utilized adhering to the principles of ALARA. COMPARISON: CT cervical spine of same day FINDINGS: There is an acute intraparenchymal hemorrhage involving the medial aspect of the mid right cerebellar hemisphere measuring 2.5 x 1.1 cm probably involving the dentate nucleus. This may partially extend into the fourth ventricle. Surrounding vasogenic edema results in partial effacement of the fourth ve ntricle. Trace layering hemorrhage within the posterior horn left lateral ventricle. No midline shift . Age-related involutional changes. White matter hypodensities suggestive of chronic microvascular is chemic disease. No acute territorial infarct. Cerebral vascular calcifications. The calvarium is intact. The paranasal sinuses, mastoid air cells, and middle ear cavities are clear . IMPRESSION: 1. Acute 2.5 x 1.1 cm intraparenchymal hematoma involves the medial aspect of the right mid cerebella r hemisphere/dentate nucleus. Mild to moderate surrounding vasogenic edema results in partial effacem ent of the fourth ventricle. 2. Small amount of layering intraventricular hemorrhage within the posterior horn left lateral ventri ike. 3. No midline shift. 4. No acute calvarial fracture. Findings were discussed with on 09/24/2019 1:15 PM ACT 112: Negative or not required by law. The above report was generated using voice recognition software. It may contain grammatical, syntax o r spelling errors. Electronically signed by: Mike Don M.D. 09/23/2020 5:16 PM
--- NOTE | 2020-09-23 17:20 | CT Scan Report ---
CT cervical spine wo con CT DOSE: 1289.37 mGy.cm CLINICAL HISTORY: 79 years-old Female with Pt c/o fall. Acute head and neck injury status post fall COMPARISON: CT cervical spine of same day TECHNIQUE: Multiple axial CT images of the cervical spine were obtained without contrast. A dose low ering technique was utilized adhering to the principles of ALARA. FINDINGS: Intraparenchymal hematoma of the right cerebellum. Calcified plaque of the carotid arteries. Emphysem atous changes of the lung apices. Layering secretions within the airway. No prevertebral edema. Demineralized appearance of the bones. Chondrocalcinosis of the disc spaces. Moderate intervertebral disc space narrowing at C6-C7. Moderate multilevel facet arthrosis. Severe degeneration at C1-C2. Min imal superior endplate compression at T1 and T2, likely chronic. No acute fracture or subluxation of the cervical spine identified. IMPRESSION: 1. No acute cervical spine fracture or subluxation. 2. Acute intraparenchymal hematoma of the right cerebellum. ACT 112: Negative or not required by law. The above report was generated using voice recognition software. It may contain grammatical, syntax o r spelling errors. Electronically signed by: Mike Don M.D. 09/23/2020 5:19 PM
--- NOTE | 2020-09-23 17:39 | CT Scan Report ---
CHEST CT WITH CONTRAST; CT ABDOMEN AND PELVIS WITH IV CONTRAST ONLY HISTORY: Acute chest and abdominal trauma status post fall Pt c/o fall TECHNIQUE: Multiaxial CT images of the chest, abdomen and pelvis were performed following the IV admi nistration of Optiray. A dose lowering technique was utilized adhering to the principles of ALARA. COMPARISON: CT chest 11/01/2019, CT abdomen and pelvis 02/20/2020. FINDINGS: CT CHEST: Unremarkable thyroid. Mild cardiomegaly. Moderate thickening of the left ventricular wall. Extensive coronary artery calcifications. Unremarkable pulmonary artery. Extensive atherosclerotic plaque of th e thoracic aorta. There is a new saccular outpouching involving the medial aspect of the proximal nelly cending thoracic aorta measuring 2.9 x 1.3 x 2.3 cm on image 65. Progressively worsened and aneurysma l dilation of the descending thoracic aorta measuring up to 4.8 cm transversely, previously 3.6 cm. T here is an intimal flap of the aortic arch just distal to the left subclavian origin on image 73 seri es 10 image is also new from comparison. Increased amount of mural thrombus within the distal descend ing thoracic aorta. No dissection extension into the aortic root great vessels. Moderate emphysema. No adenopathy. No pneumothorax, pleural effusion, airspace consolidation or overt pulmonary edema. No suspicious pulmonary nodule or mass. Central airways are patent. Diffuse body wa ll edema. Moderate hemorrhage/deep tissue edema surrounds the acute comminuted and displaced right pr oximal humeral fracture. Loose bodies are noted within the subscapularis recess. Chronic appearing th oracic compression deformities are unchanged from comparison. CT ABDOMEN/PELVIS: Increased size of a fusiform aneurysmal dilation of the infrarenal abdominal aorta now measuring up t o 4.6 x 4.2 cm, previously 4.3 x 3.9 cm. 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 No dissection identified. Unremarkable spleen, mildly atrophic pancreas, adrenal glands and gallblad richard. There are a few probable subcentimeter cysts of the liver. 1.9 cm cyst of the left hepatic lobe. Patency of the hepatic and portal veins. There are several right-sided renal cysts. No hydronephrosis. Terry catheter within a decompressed ur inary bladder. Intraluminal air likely secondary to rotation. Unremarkable uterus. No adenopathy. No bowel obstruction or bowel wall thickening. Intraluminal stool within the cecum. Postoperative shahzad nges of the right hemicolon. The appendix appears surgically absent. Unremarkable soft tissues. Degen erative changes of the spine, pelvis and hips. Postoperative changes of the proximal left femur. Tarl ov cysts of the sacrum. T12 and L3 compression deformities appear unchanged. IMPRESSION: 1. Aneurysmal dilation of the descending thoracic aorta has increased in size from 11/01/2019, measuri ng up to 4.8 cm, previously 3.6 cm. Additionally, there is a new short segment dissection of the thor acic aortic arch distal to the left subclavian origin without extension into the aortic root or proxi mal great vessels. 2. New saccular outpouching involving the medial aspect of the proximal descending thoracic aorta stewart suring up to 2.9 cm. This may reflect a penetrating ulcer versus saccular aneurysm. Mural thrombus of the descending thoracic aorta has increased from comparison. 3. Acute comminuted and displaced right proximal humeral fracture. 4. Fusiform aneurysm dilation of the distal infrarenal abdominal aorta measuring up to 4.6 cm previou sly measured 4.3 cm. No aneurysm rupture. 5. Additional findings as above. ACT 112: Negative or not required by law. Electronically signed by: Mike Don M.D. 09/23/2020 5:38 PM
[2020-09-23] MEDS ORDERED: STAT IV Infusion **Titration per Protocol STA ×2 (17:49→20:24)
[2020-09-23] MEDS ORDERED: MoRPHine SULF/NSS 250 MG/250 ML BTL IV SCH (18:00)
--- NOTE | 2020-09-23 18:51 | History & Physical Report ---
Date of Service September 23, 2020 Assessment & Plan (1) Intraparenchymal hematoma of brain: The patient will be mated to medical surgical bed for comfort measures. N.p.o. except ice chips and sips Standard orders for comfort measures written Morphine drip per comfort protocol Lorazepam 0.5 mg IV every 4 hours as needed Atropine eyedrops topically on tongue as needed secretions Family will be allowed to stay with patient during the stay. 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 Work-up in the emergency department included a CT scan of head and brain without contrast, which showed an acute 2.5 x 1.1 cm intraparenchymal hematoma involving the medial aspect of the right mid cerebellar hemisphere/dentate nucleus with mild to moderate surrounding vasogenic edema resulting in partial effacement of the fourth ventricle. There is a small amount of layering intraventricular hemorrhage within the posterior horn of the left lateral ventricle. There is no midline shift and no acute calvarial fracture. CT scan of the chest/abdomen and pelvis showed an aneurysmal dilatation of the descending thoracic aorta that is increased in size from 11/01/2019 from 3.6 up to 4.8 cm. 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 There is a new saccular outpouching involving the medial aspect of the proximal descending thoracic aorta measuring up to 2.9 cm, which may reflect a penetrating ulcer versus saccular aneurysm. 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 There is an acute comminuted and displaced right proximal humeral fracture. Fusiform aneurysm dilatation of the distal infrarenal abdominal aorta measuring up to 4.6 cm previously measured at 4.3 cm without rupture. Emergency department physician Dr. Bolivar discussed case with neurosurgery at [facility] in [place], who felt that patient would not be a good surgical candidate. Her case was discussed with family members, who have asked the patient be admitted to [facility] for comfort measures Allergies Allergy/AdvReac Type Severity Reaction Status Date / Time No Known Allergies Allergy Verified 09/23/20 15:24 Home Medications Medication Instructions Recorded Confirmed Type No Known Home Medications 06/25/20 09/23/20 History Past Med/Surg History Medical History (Updated 09/23/20 @ 18:48 by Jose Koroma MD) Abdominal aortic aneurysm (AAA) 3.0 cm to 5.0 cm in diameter in female Abdominal pain Abnormal CT of the abdomen Carcinoid tumor of ileum Hyperkalemia Hypertension Microscopic hematuria Sciatica HX Thoracic aortic aneurysm Surgical History (Updated 05/21/20 @ 10:08 by Patrice Kathleen DO, FACS) H/O right hemicolectomy (05/08/20) Right Laparoscopic Hemicolectomy Dr. Kathleen 05/08/2020 History of repair of left hip joint History of tooth extraction Family History Father No problems noted. Mother No problems noted. Sister Breast cancer Other Family history non-contributory Denies family history of Ovarian cancer Prostate cancer Myocardial infarction Colorectal cancer Social History Smoking Status: Smoker, status unknown Tobacco Type: Cigarettes Cigarettes Per Day: 7-8 CIGS A DAY; Second Hand Exposure: No; Hx Alcohol Use: No Hx Substance Use: No Preferred Language: Luxembourger Communication Ability: Effective Visual Impairment: No Limitations Hearing Ability: Normal Director Of [employer] Operations Required: No Beliefs That Will Affect Care: None marital status: Current Living Situation: Significant Other 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al status: employed and retired 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: works with a [employer] company-esc[employer] for [employer] other: 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 HEENT--PERRL, EOMI, mucous membranes and oropharynx moist Neck--supple. No JVD. No bruits. Thyroid normal, trachea midline, no adenopathy. Heart--normal S1 and S2. No murmurs, rubs or gallops. Lungs--clear bilaterally, no respiratory distress, no accessory muscle use. Abdomen--normal bowel sounds and soft. Nontender. Nondistended Extremities--no cyanosis or clubbing. No edema. Dermatologic--skin is dry Neurologic--limited exam Rheumatologic--limited exam Psychiatric--mildly sedated due to pain medications. Results & Data Results & Data ([facility]) Vital Signs (Past 12 Hours) Vital Signs Pulse Resp BP Pulse Ox 09/23/20 18:21 62 162/90 H 100 09/23/20 18:10 58 L 159/92 H 99 09/23/20 18:01 64 160/81 H 100 09/23/20 17:50 67 152/87 H 100 09/23/20 17:40 70 157/93 H 100 09/23/20 17:31 64 167/83 H 100 09/23/20 17:21 65 182/82 H 09/23/20 17:12 63 180/91 H 97 09/23/20 17:06 66 09/23/20 16:45 70 23 139/71 93 09/23/20 16:31 86 21 127/68 95 09/23/20 16:16 70 20 158/82 H 95 09/23/20 15:31 67 22 220/120 H 96 09/23/20 15:15 69 15 219/115 H 95 09/23/20 15:01 74 23 206/129 H 95 09/23/20 14:45 94 H 16 232/138 H 97 09/23/20 14:33 101 H 16 175/120 H 94 Laboratory Results Laboratory Results WBC 11.09 K/uL (4.8-10.8) H 09/23/20 15:40 RBC 4.69 M/uL (4.2-5.4) 09/23/20 15:40 Hgb 12.6 g/dL (12.0-16.0) 09/23/20 15:40 Hct 39.9 % (37-47) 09/23/20 15:40 MCV 85.1 fL (80-100) 09/23/20 15:40 MCH 26.9 pg (25-34) 09/23/20 15:40 MCHC 31.6 g/dL (32-36) L 09/23/20 15:40 RDW Std Deviation 52.5 fL (36.4-46.3) H 09/23/20 15:40 RDW Coeff of Paul 16.8 % (11.5-14.5) H 09/23/20 15:40 Plt Count 187 K/uL (130-400) 09/23/20 15:40 MPV 9.1 fL (7.4-10.4) 09/23/20 15:40 Immature Gran % (Auto) 0.4 % 09/23/20 15:40 Neut % (Auto) 88.4 % 09/23/20 15:40 Lymph % (Auto) 5.4 % 09/23/20 15:40 [place] % (Auto) 5.4 % 09/23/20 15:40 Eos % (Auto) 0.3 % 09/23/20 15:40 Baso % (Auto) 0.1 % 09/23/20 15:40 Neut # (Auto) 9.81 K/uL (1.4-6.5) H 09/23/20 15:40 Lymph # (Auto) 0.60 K/uL (1.2-3.4) L 09/23/20 15:40 [place]lette # (Auto) 0.60 K/uL (0.11-0.59) H 09/23/20 15:40 Eos # (Auto) 0.03 K/uL (0-0.5) 09/23/20 15:40 Baso # (Auto) 0.01 K/uL (0-0.2) 09/23/20 15:40 Immature Gran # (Auto) 0.04 K/uL (0.00-0.02) H 09/23/20 15:40 PT 11.4 Seconds (9.0-12.0) 09/23/20 15:40 INR 1.1 (0.9-1.1) 09/23/20 15:40 APTT 25.8 Seconds (21.0-31.0) 09/23/20 15:40 PTT Ratio 1.0 09/23/20 15:40 Sodium 140 mmol/L (136-145) 09/23/20 15:40 Potassium 3.6 mmol/L (3.5-5.1) 09/23/20 15:40 Chloride 108 mmol/L (98-107) H 09/23/20 15:40 Carbon Dioxide 26 mmol/L (21-32) 09/23/20 15:40 Anion Gap 6.0 (3-11) 09/23/20 15:40 BUN 16 mg/dl (7-18) 09/23/20 15:40 Creatinine 0.80 mg/dl (0.6-1.2) 09/23/20 15:40 Est Cr Clr Drug Dosing Not Reportable 09/23/20 15:40 Est GFR ( Amer) 80.7 ml/min 09/23/20 15:40 Est GFR (Non-Af Amer) 69.6 ml/min 09/23/20 15:40 BUN/Creatinine Ratio 20.1 (10-20) H 09/23/20 15:40 Glucose 165 mg/dl (70-99) H 09/23/20 15:40 Calcium 8.4 mg/dl (8.5-10.1) L 09/23/20 15:40 Magnesium 2.0 mg/dl (1.8-2.4) 09/23/20 15:40 Total Bilirubin 0.4 mg/dl (0.2-1) 09/23/20 15:40 AST 12 U/L (15-37) L 09/23/20 15:40 ALT 10 U/L (12-78) L 09/23/20 15:40 Alkaline Phosphatase 87 U/L (45-117) 09/23/20 15:40 Total Creatine Kinase 79 U/L (26-192) 09/23/20 15:40 CK-MB (CK-2) 1.8 ng/ml (0.5-3.6) 09/23/20 15:40 CK/CKMB % Calc 2.3 (0-3.0) 09/23/20 15:40 Troponin I < 0.015 ng/ml (0-0.045) 09/23/20 15:40 Total Protein 6.9 gm/dl (6.4-8.2) 09/23/20 15:40 Albumin 3.2 gm/dl (3.4-5.0) L 09/23/20 15:40 Globulin 3.7 gm/dl (2.5-4.0) 09/23/20 15:40 Albumin/Globulin Ratio 0.9 (0.9-2) 09/23/20 15:40 COVID-19 Eval Order Covid19 at [facility] 09/23/20 17:55 Impressions Chest X-Ray 09/23/20 14:46 XR chest 1V portable HISTORY: 79 years-old Female Stroke Like Symptoms acute strokelike symptoms COMPARISON: Right humerus radiographs of same day, acute abdominal series radiographs 05/05/2020 TECHNIQUE: Portable AP view the chest FINDINGS: Cardiomegaly. Hiatal hernia. Calcified plaque of the thoracic aorta with tortuosity. No pneumothorax, pleural effusion, airspace consolidation or overt pulmonary edema. Acute right humeral fracture is partially imaged. IMPRESSION: 1. No acute cardiopulmonary abnormality. 2. Acute mildly displaced right proximal humeral fracture. ACT 112: Negative or not required by law. The above report was generated using voice recognition software. It may contain grammatical, syntax or spelling errors. Electronically signed by: Mike Don M.D. 09/23/2020 3:09 PM Humerus X-Ray 09/23/20 14:46 XR humerus RT 2V HISTORY: 79 years-old Female Pt c/o Rt shoulder pain acute right shoulder pain COMPARISON: Chest radiograph of same day TECHNIQUE: 2 views of the right humerus FINDINGS: Demineralized appearance of the bones. There is an acute mildly comminuted fracture of the proximal right humerus which includes a surgical neck fracture displaced laterally 6 mm. Greater trochanteric fracture is displaced laterally 5 mm. No dislocation. Moderate glenohumeral with mild AC joint osteoarthritis. Soft tissue swelling surrounds the shoulder. The imaged lung ramirez appear clear. IMPRESSION: 1. Acute mildly comminuted and slightly displaced right proximal humeral fracture. 2. No dislocation. ACT 112: Negative or not required by law. The above report was generated using voice recognition software. It may contain grammatical, syntax or spelling errors. Electronically signed by: Mike Don M.D. 09/23/2020 3:07 PM Abdomen/Pelvis CT 09/23/20 15:[address] WITH CONTRAST; CT ABDOMEN AND PELVIS WITH IV CONTRAST ONLY HISTORY: Acute chest and abdominal trauma status post fall Pt c/o fall TECHNIQUE: Multiaxial CT images of the chest, abdomen and pelvis were performed following the IV administration of Optiray. A dose lowering technique was utilized adhering to the principles of ALARA. COMPARISON: CT chest 11/01/2019, CT abdomen and pelvis 02/20/2020. FINDINGS: CT CHEST: Unremarkable thyroid. Mild cardiomegaly. Moderate thickening of the left ventricular wall. Extensive coronary artery calcifications. Unremarkable pulmonary artery. Extensive atherosclerotic plaque of the thoracic aorta. There is a new saccular outpouching involving the medial aspect of the proximal descending thoracic aorta measuring 2.9 x 1.3 x 2.3 cm on image 65. Progressively worsened and aneurysmal dilation of the descending thoracic aorta measuring up to 4.8 cm transversely, previously 3.6 cm. There is an intimal flap of the aortic arch just distal to the left subclavian origin on image 73 series 10 image is also new from comparison. Increased amount of mural thrombus within the distal descending thoracic aorta. No dissection extension into the aortic root great vessels. Moderate emphysema. No adenopathy. No pneumothorax, pleural effusion, airspace consolidation or overt pulmonary edema. No suspicious pulmonary nodule or mass. Central airways are patent. Diffuse body wall edema. Moderate hemorrhage/deep tissue edema surrounds the acute comminuted and displaced right proximal humeral fracture. Loose bodies are noted within the subscapularis recess. Chronic appearing thoracic compression deformities are unchanged from comparison. CT ABDOMEN/PELVIS: Increased size of a fusiform aneurysmal dilation of the infrarenal abdominal aorta now measuring up to 4.6 x 4.2 cm, previously 4.3 x 3.9 cm. 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 No dissection identified. Unremarkable spleen, mildly atrophic pancreas, adrenal glands and gallbladder. There are a few probable subcentimeter cysts of the liver. 1.9 cm cyst of the left hepatic lobe. Patency of the hepatic and portal veins. There are several right-sided renal cysts. No hydronephrosis. Terry catheter within a decompressed urinary bladder. Intraluminal air likely secondary to rotation. Unremarkable uterus. No adenopathy. No bowel obstruction or bowel wall thickening. Intraluminal stool within the cecum. Postoperative changes of the right hemicolon. The appendix appears surgically absent. Unremarkable soft tissues. Degenerative changes of the spine, pelvis and hips. Postoperative changes of the proximal left femur. Tarlov cysts of the sacrum. T12 and L3 compression deformities appear unchanged. IMPRESSION: 1. 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 2. New saccular outpouching involving the medial aspect of the proximal descending thoracic aorta measuring up to 2.9 cm. This may reflect a penetrating ulcer versus saccular aneurysm. Mural thrombus of the descending thoracic aorta has increased from comparison. 3. Acute comminuted and displaced right proximal humeral fracture. 4. Fusiform aneurysm dilation of the distal infrarenal abdominal aorta measuring up to 4.6 cm previously measured 4.3 cm. No aneurysm rupture. 5. Additional findings as above. ACT 112: Negative or not required by law. Electronically signed by: Mike Don M.D. 09/23/2020 5:[address] 09/23/20 15:04 CT cervical spine wo con CT DOSE: 1289.37 mGy.cm CLINICAL HISTORY: 79 years-old Female with Pt c/o fall. Acute head and neck injury status post fall COMPARISON: CT cervical spine of same day TECHNIQUE: Multiple axial CT images of the cervical spine were obtained without contrast. A dose lowering technique was utilized adhering to the principles of ALARA. FINDINGS: Intraparenchymal hematoma of the right cerebellum. Calcified plaque of the carotid arteries. Emphysematous changes of the lung apices. Layering secretions within the airway. No prevertebral edema. Demineralized appearance of the bones. Chondrocalcinosis of the disc spaces. Moderate intervertebral disc space narrowing at C6-C7. Moderate multilevel facet arthrosis. Severe degeneration at C1-C2. Minimal superior endplate compression at T1 and T2, likely chronic. No acute fracture or subluxation of the cervical spine identified. IMPRESSION: 1. No acute cervical spine fracture or subluxation. 2. Acute intraparenchymal hematoma of the right cerebellum. ACT 112: Negative or not required by law. The above report was generated using voice recognition software. It may contain grammatical, syntax or spelling errors. Electronically signed by: Mike Don M.D. 09/23/2020 5:[address] 09/23/20 15:[address] WITH CONTRAST; CT ABDOMEN AND PELVIS WITH IV CONTRAST ONLY HISTORY: Acute chest and abdominal trauma status post fall Pt c/o fall TECHNIQUE: Multiaxial CT images of the chest, abdomen and pelvis were performed following the IV administration of Optiray. A dose lowering technique was utilized adhering to the principles of ALARA. COMPARISON: CT chest 11/01/2019, CT abdomen and pelvis 02/20/2020. FINDINGS: CT CHEST: Unremarkable thyroid. Mild cardiomegaly. Moderate thickening of the left ventricular wall. Extensive coronary artery calcifications. Unremarkable pulmonary artery. Extensive atherosclerotic plaque of the thoracic aorta. There is a new saccular outpouching involving the medial aspect of the proximal descending thoracic aorta measuring 2.9 x 1.3 x 2.3 cm on image 65. Progressively worsened and aneurysmal dilation of the descending thoracic aorta measuring up to 4.8 cm transversely, previously 3.6 cm. There is an intimal flap of the aortic arch just distal to the left subclavian origin on image 73 series 10 image is also new from comparison. Increased amount of mural thrombus within the distal descending thoracic aorta. No dissection extension into the aortic root great vessels. Moderate emphysema. No adenopathy. No pneumothorax, pleural effusion, airspace consolidation or overt pulmonary edema. No suspicious pulmonary nodule or mass. Central airways are patent. Diffuse body wall edema. Moderate hemorrhage/deep tissue edema surrounds the acute comminuted and displaced right proximal humeral fracture. Loose bodies are noted within the subscapularis recess. Chronic appearing thoracic compression deformities are unchanged from comparison. CT ABDOMEN/PELVIS: Increased size of a fusiform aneurysmal dilation of the infrarenal abdominal aorta now measuring up to 4.6 x 4.2 cm, previously 4.3 x 3.9 cm. 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 No dissection identified. Unremarkable spleen, mildly atrophic pancreas, adrenal glands and gallbladder. There are a few probable subcentimeter cysts of the liver. 1.9 cm cyst of the left hepatic lobe. Patency of the hepatic and portal veins. There are several right-sided renal cysts. No hydronephrosis. Terry catheter within a decompressed urinary bladder. Intraluminal air likely secondary to rotation. Unremarkable uterus. No adenopathy. No bowel obstruction or bowel wall thickening. Intraluminal stool within the cecum. Postoperative changes of the right hemicolon. The appendix appears surgically absent. Unremarkable soft tissues. Degenerative changes of the spine, pelvis and hips. Postoperative changes of the proximal left femur. Tarlov cysts of the sacrum. T12 and L3 compression deformities appear unchanged. IMPRESSION: 1. 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 2. New saccular outpouching involving the medial aspect of the proximal descending thoracic aorta measuring up to 2.9 cm. This may reflect a penetrating ulcer versus saccular aneurysm. Mural thrombus of the descending thoracic aorta has increased from comparison. 3. Acute comminuted and displaced right proximal humeral fracture. 4. Fusiform aneurysm dilation of the distal infrarenal abdominal aorta measuring up to 4.6 cm previously measured 4.3 cm. No aneurysm rupture. 5. Additional findings as above. ACT 112: Negative or not required by law. Electronically signed by: Mike Don M.D. 09/23/2020 5:[address] 09/23/20 15:04 CT head/brain wo con CLINICAL HISTORY: 79 years-old Female with Pt c/o found on floor. Acute head trauma status post fall. The patient was found down. TECHNIQUE: Multiple axial CT images of the head were obtained without contrast. A dose lowering technique was utilized adhering to the principles of ALARA. COMPARISON: CT cervical spine of same day FINDINGS: There is an acute intraparenchymal hemorrhage involving the medial aspect of the mid right cerebellar hemisphere measuring 2.5 x 1.1 cm probably involving the dentate nucleus. This may partially extend into the fourth ventricle. Surr ounding vasogenic edema results in partial effacement of the fourth ventricle. Trace layering hemorrhage within the posterior horn left lateral ventricle. No midline shift. Age-related involutional changes. White matter hypodensities suggestive of chronic microvascular ischemic disease. No acute territorial infarct. Cerebral vascular calcifications. The calvarium is intact. The paranasal sinuses, mastoid air cells, and middle ear cavities are clear. IMPRESSION: 1. Acute 2.5 x 1.1 cm intraparenchymal hematoma involves the medial aspect of the right mid cerebellar hemisphere/dentate nucleus. Mild to moderate surrounding vasogenic edema results in partial effacement of the fourth ventricle. 2. Small amount of layering intraventricular hemorrhage within the posterior horn left lateral ventricle. 3. No midline shift. 4. No acute calvarial fracture. Findings were discussed with on 09/24/2019 1:15 PM ACT 112: Negative or not required by law. The above report was generated using voice recognition software. It may contain grammatical, syntax or spelling errors. Electronically signed by: Mike Don M.D. 09/23/2020 5:16 PM Code Status & VTE Plan Code Status DNR/DNI Comfort measures VTE Prophylaxis Plan VTE Prophylaxis will be ordered: Yes PG Care Time/CCT Total # of Minutes Spent Total Time Spent with Patient: Total time spent is greater than 50% in coordination of care (as documented) at patient's floor/unit and/or counseling patient: Coding Level of Care Code 15625 Initial Inpt Care Lvl 2 Diagnoses Intraparenchymal hematoma of brain S06.360A
--- NOTE | 2020-09-23 19:53 | Emergency Department Note ---
Impression & Plan Intraparenchymal hematoma of brain, Fracture, humerus, Hypertension ED Provider Note NAME: KAREN TALBERT AGE: 79 SEX: F : 1940 ARRIVES VIA: Ambulance INFORMANT: Patient, EMS, family ED PROVIDER(S): Rivas Bolivar MD CHIEF COMPLAINT: syncope, arm pain HPI: This is an 79-year-old female brought in by EMS per. Per EMS they were called to the home found the patient had collapsed on the floor. The patient is only speaking in a whisper voice and is difficult to understand but she is complaining of right shoulder pain. She reports movement makes the pain worse. She reports nothing appears to make the pain better. She was not given anything for the pain by EMS. Per patient's significant other who she lives with he reports that he heard a collapse in the next room and rushed to find the patient on the floor with an altered mental status. Per pharmacy the patient has not had any of her prescription prescription medications filled since March. ROS: Unobtainable due to patient acuity PAST MEDICAL HISTORY: See Below PAST SURGICAL HISTORY: See Below FAMILY HISTORY: See Below SOCIAL HISTORY: See Below HOME MEDICATIONS: See Below ALLERGIES: See Below VITALS: See Below PHYSICAL EXAMINATION: VITAL SIGNS - Vital signs and nursing notes were reviewed. GENERAL - 79-year-old female appearing stated age who is moderate distress. SKIN - Without rashes. HEAD - NC/AT. EYES - PERRL with EOMI bilaterally. Sclera anicteric. Palpebral conjunctiva pink and moist with no injection noted. EARS - No deformities of external structures noted on gross examination bi laterally. NOSE - Midline and without cyanosis. No epistaxis or purulent drainage noted. Septum midline without deviation or septal hematoma noted. MOUTH/OROPHARYNX - Without perioral cyanosis. Buccal mucosa pink and moist and without leukoplakia. Tongue midline with equal elevation of palate bilaterally. No tonsillar hypertrophy, erythema, or exudates noted. NECK - Neck with FROM. Supple to palpation. No nuchal rigidity. LUNGS - Chest wall symmetric without accessory muscle use, intercostals retractions, or central cyanosis. Normal vesicular breath sounds CTA B/L. No wheezes, rales, or rhonchi appreciated. CARDIAC - RRR with S1/S2. No murmur, rubs, or gallops appreciated. ABDOMEN - Abdominal contour BS normoactive all four quadrants. No tenderness, palpable masses, hepatosplenomegaly, or ascites noted. EXTREMITIES - Pt refusing to move Rt arm at shoulder, good distal pulses NEUROLOGIC - Cranial nerves II through XII grossly intact. Sensory intact to light touch throughout. Patellar reflexes +2/4. MEDICAL DECISION MAKING: Patient was seen and evaluated as above in room C9. Review was performed of nursing notes and vital signs. I did review pertinent previous visits and patient history. After obtaining a thorough history and physical examination the above work up was performed. This is an 79-year-old female who presents emergency department and acute distress. Her blood pressure was found to be significantly elevated therefore she was started on nicardipine drip and she was given Dilaudid for the pain in her arm. X-rays revealed a humerus head fracture. The patient was then sent for a CAT scan of the head chest abdomen and pelvis. This is concerning for a dissection as well as an intraparenchymal hematoma of the the brain. I did discuss these findings with the patient however she does not appear to understand what I am telling her. At this point I attempted to contact patient's son daughter as well as significant other. There was some delay in being able to contact everybody however they all agreed that the patient would not want to have anything heroic done. I did discuss the case with the neurosurgeon on-call in [place] who did review the patient's films. He is concerned that this is a nonsurvivable injury. He asked me to convey these findings to the family. Upon finding this out the family would like to make the patient comfort measures only. At this point the nicardipine drip was stopped and the patient was placed on a morphine drip. I did discuss the case with the hospitalist service who did agree to admit the patient. I spent a very lengthy time counseling family. An order was placed for continuous cardiac monitoring. The monitor shows a rate of 67 with Normal SInus rhythm. The patient was evaluated during a period of high volume and high acuity during the global COVID-19 pandemic, and that diagnosis was suspected/considered upon their initial presentation. Their evaluation, treatment and testing was consistent with current guidelines for patients who present with complaints or symptoms that may be related to COVID-19. Patient was seen while provider was wearing PPE. Triage Nursing notes reviewed. Prior medical records reviewed Vital Signs: reviewed and remarkable for no significant abnormalities Differential diagnosis: Benign hypertension, hypertensive emergency, cardiovascular pathology, toxicologic, pheochromocytoma, electrolyte abnormality, renal disease, endorgan damage, as well as other pathologies. ER treatment provided: See below Diagnostics interpreted by me: ECG: EKG shows A. wisam with PVC left axis deviation old anterior infarct QTC is 454 ventricular rate is 80 when comparing to 05/05/2020 atrial fibrillation has replaced sinus rhythm Laboratory studies: As stated above and show below. Imaging studies: See below Consultation(s): Neurosurgery- [facility] PDMP:reviewed and no issues Critical Care: I have personally spent greater than 30 minutes of critical care time in the direct management of this patient. This includes bedside care, interpretation of diagnostic studies, and testing, discussion with consultants, patient, and family members, and other required patient management activities. This 30 minutes is in excess of all separately billable procedures. Past Med/Surg History Medical History (Updated 09/23/20 @ 19:53 by Rivas Bolivar MD) Abdominal aortic aneurysm (AAA) 3.0 cm to 5.0 cm in diameter in female Abdominal pain Abnormal CT of the abdomen Carcinoid tumor of ileum Hyperkalemia Hypertension Microscopic hematuria Sciatica HX Thoracic aortic aneurysm Surgical History (Updated 05/21/20 @ 10:08 by Patrice Kathleen DO, FACS) H/O right hemicolectomy (05/08/20) Right Laparoscopic Hemicolectomy Dr. Kathleen 05/08/2020 History of repair of left hip joint History of tooth extraction Family History Father No problems noted. Mother No problems noted. Sister Breast cancer Other Family history non-contributory Denies family history of Ovarian cancer Prostate cancer Myocardial infarction Colorectal cancer Social History Smoking Status: Smoker, status unknown Tobacco Type: Cigarettes Cigarettes Per Day: 7-8 CIGS A DAY; Second Hand Exposure: No; Hx Alcohol Use: No Hx Substance Use: No Preferred Language: Tajik Communication Ability: Effective Visual Impairment: No Limitations Hearing Ability: Normal Director Law Enforcement Required: No Beliefs That Will Affect Care: None marital status: Current Living Situation: Significant Other 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al status: employed and retired 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 [employer] 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: 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; 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 Feels Safe at Home: Yes Dental Care, Regularly: No Physical Activity Frequency Comment: walks a lot Seatbelt Use: always Sunscreen Use: Yes Assistive Devices: None Allergies Allergies Allergy/AdvReac Type Severity Reaction Status Date / Time No Known Allergies Allergy Verified 09/23/20 15:24 Home Meds Home Medications Medication Instructions Recorded Confirmed No Known Home Medications 06/25/20 09/23/20 Results & Data (ED) Vital Signs Vital Signs - 24 hr 09/23/20 14:33 09/23/20 14:45 09/23/20 15:01 Pulse Rate 101 H 94 H 74 Pulse Rate [Apical] Pulse Rate from SpO2 Sensor 93 H 61 Pulse Rhythm Irregular Pulse Strength Normal Respiratory Rate 16 16 23 Respiratory Effort / Characteristics Non-Labored Spontaneous Respiratory Depth Normal Respiratory Pattern Regular Blood Pressure 175/120 H 232/138 H 206/129 H Blood Pressure [Right Arm] Blood Pressure Mean 138 169 154 Blood Pressure Mean [Right Arm] Blood Pressure Position Semi-fowlers Pulse Oximetry 94 97 95 Oxygen Delivery Method Room Air Sepsis Recent Fever Within 48 Hours No Sepsis New/Unexplained Change in Mental Status No Sepsis Action Taken by Nursing No Action Required 09/23/20 15:15 09/23/20 15:31 09/23/20 16:16 Pulse Rate 69 67 70 Pulse Rate [Apical] Pulse Rate from SpO2 Sensor Pulse Rhythm Pulse Strength Respiratory Rate 15 22 20 Respiratory Effort / Characteristics Respiratory Depth Respiratory Pattern Blood Pressure 219/115 H 220/120 H 158/82 H Blood Pressure [Right Arm] Blood Pressure Mean 149 153 107 Blood Pressure Mean [Right Arm] Blood Pressure Position Pulse Oximetry 95 96 95 Oxygen Delivery Method Sepsis Recent Fever Within 48 Hours Sepsis New/Unexplained Change in Mental Status Sepsis Action Taken by Nursing 09/23/20 16:31 09/23/20 16:45 09/23/20 17:06 Pulse Rate 86 70 66 Pulse Rate [Apical] Pulse Rate from SpO2 Sensor 61 Pulse Rhythm Pulse Strength Respiratory Rate 21 23 Respiratory Effort / Characteristics Respiratory Depth Respiratory Pattern Blood Pressure 127/68 139/71 Blood Pressure [Right Arm] Blood Pressure Mean 87 93 Blood Pressure Mean [Right Arm] Blood Pressure Position Pulse Oximetry 95 93 Oxygen Delivery Method Sepsis Recent Fever Within 48 Hours Sepsis New/Unexplained Change in Mental Status Sepsis Action Taken by Nursing 09/23/20 17:12 09/23/20 17:21 09/23/20 17:31 Pulse Rate 63 65 64 Pulse Rate [Apical] Pulse Rate from SpO2 Sensor 61 51 L Pulse Rhythm Pulse Strength Respiratory Rate Respiratory Effort / Characteristics Respiratory Depth Respiratory Pattern Blood Pressure 180/91 H 182/82 H 167/83 H Blood Pressure [Right Arm] Blood Pressure Mean 120 115 111 Blood Pressure Mean [Right Arm] Blood Pressure Position Pulse Oximetry 97 100 Oxygen Delivery Method Sepsis Recent Fever Within 48 Hours Sepsis New/Unexplained Change in Mental Status Sepsis Action Taken by Nursing 09/23/20 17:40 09/23/20 17:50 09/23/20 18:01 Pulse Rate 70 67 64 Pulse Rate [Apical] Pulse Rate from SpO2 Sensor 71 60 56 L Pulse Rhythm Pulse Strength Respiratory Rate Respiratory Effort / Characteristics Respiratory Depth Respiratory Pattern Blood Pressure 157/93 H 152/87 H 160/81 H Blood Pressure [Right Arm] Blood Pressure Mean 114 108 107 Blood Pressure Mean [Right Arm] Blood Pressure Position Pulse Oximetry 100 100 100 Oxygen Delivery Method Sepsis Recent Fever Within 48 Hours Sepsis New/Unexplained Change in Mental Status Sepsis Action Taken by Nursing 09/23/20 18:10 09/23/20 18:21 09/23/20 18:30 Pulse Rate 58 L 62 57 L Pulse Rate [Apical] Pulse Rate from SpO2 Sensor 58 L 56 L 52 L Pulse Rhythm Pulse Strength Respiratory Rate Respiratory Effort / Characteristics Respiratory Depth Respiratory Pattern Blood Pressure 159/92 H 162/90 H 167/94 H Blood Pressure [Right Arm] Blood Pressure Mean 114 114 118 Blood Pressure Mean [Right Arm] Blood Pressure Position Pulse Oximetry 99 100 99 Oxygen Delivery Method Sepsis Recent Fever Within 48 Hours Sepsis New/Unexplained Change in Mental Status Sepsis Action Taken by Nursing 09/23/20 18:41 09/23/20 18:51 09/23/20 18:55 Pulse Rate 60 69 Pulse Rate [Apical] 69 Pulse Rate from SpO2 Sensor 47 L 52 L Pulse Rhythm Pulse Strength Respiratory Rate 17 Respiratory Effort / Characteristics Respiratory Depth Respiratory Pattern Blood Pressure 160/85 H 171/107 H Blood Pressure [Right Arm] 171/107 H Blood Pressure Mean 110 128 Blood Pressure Mean [Right Arm] 128 Blood Pressure Position Pulse Oximetry 99 100 92 Oxygen Delivery Method Sepsis Recent Fever Within 48 Hours Sepsis New/Unexplained Change in Mental Status Sepsis Action Taken by Nursing 09/23/20 19:00 09/23/20 19:01 09/23/20 19:11 Pulse Rate 67 69 Pulse Rate [Apical] 74 68 Pulse Rate from SpO2 Sensor 47 L 52 L Pulse Rhythm Pulse Strength Respiratory Rate 20 19 Respiratory Effort / Characteristics Respiratory Depth Respiratory Pattern Blood Pressure 188/98 H 164/99 H Blood Pressure [Right Arm] 155/110 H 188/98 H Blood Pressure Mean 128 120 Blood Pressure Mean [Right Arm] 125 128 Blood Pressure Position Pulse Oximetry 96 98 100 Oxygen Delivery Method Sepsis Recent Fever Within 48 Hours Sepsis New/Unexplained Change in Mental Status Sepsis Action Taken by Nursing 09/23/20 19:23 Pulse Rate Pulse Rate [Apical] 67 Pulse Rate from SpO2 Sensor Pulse Rhythm Pulse Strength Respiratory Rate 16 Respiratory Effort / Characteristics Respiratory Depth Respiratory Pattern Blood Pressure Blood Pressure [Right Arm] 117/91 Blood Pressure Mean Blood Pressure Mean [Right Arm] 99 Blood Pressure Position Pulse Oximetry 100 Oxygen Delivery Method Room Air Sepsis Recent Fever Within 48 Hours Sepsis New/Unexplained Change in Mental Status Sepsis Action Taken by [facility] Medications Current Medication List: was personally reviewed by me Laboratory Data Attestation: I reviewed the patient's lab results. Result diagrams: 09/23/20 15:40 09/23/20 15:40 Lab Results 09/23/20 09/23/20 09/23/20 Range/Units 15:40 15:40 15:40 WBC 11.09 H (4.8-10.8) K/uL RBC 4.69 (4.2-5.4) M/uL Hgb 12.6 (12.0-16.0) g/dL Hct 39.9 (37-47) % MCV 85.1 (80-100) fL MCH 26.9 (25-34) pg MCHC 31.6 L (32-36) g/dL RDW Std Deviation 52.5 H (36.4-46.3) fL RDW Coeff of Paul 16.8 H (11.5-14.5) % Plt Count 187 (130-400) K/uL MPV 9.1 (7.4-10.4) fL Immature Gran % (Auto) 0.4 % Neut % (Auto) 88.4 % Lymph % (Auto) 5.4 % Haakon % (Auto) 5.4 % Eos % (Auto) 0.3 % Baso % (Auto) 0.1 % Neut # (Auto) 9.81 H (1.4-6.5) K/uL Lymph # (Auto) 0.60 L (1.2-3.4) K/uL Haakon # (Auto) 0.60 H (0.11-0.59) K/uL Eos # (Auto) 0.03 (0-0.5) K/uL Baso # (Auto) 0.01 (0-0.2) K/uL Immature Gran # (Auto) 0.04 H (0.00-0.02) K/uL PT 11.4 (9.0-12.0) Seconds INR 1.1 (0.9-1.1) APTT 25.8 (21.0-31.0) Seconds PTT Ratio 1.0 Sodium 140 (136-145) mmol/L Potassium 3.6 (3.5-5.1) mmol/L Chloride 108 H (98-107) mmol/L Carbon Dioxide 26 (21-32) mmol/L Anion Gap 6.0 (3-11) BUN 16 (7-18) mg/dl Creatinine 0.80 (0.6-1.2) mg/dl Est Cr Clr Drug Dosing Not Reportable Est GFR ( Amer) 80.7 ml/min Est GFR (Non-Af Amer) 69.6 ml/min BUN/Creatinine Ratio 20.1 H (10-20) Glucose 165 H (70-99) mg/dl Calcium 8.4 L (8.5-10.1) mg/dl Magnesium 2.0 (1.8-2.4) mg/dl Total Bilirubin 0.4 (0.2-1) mg/dl AST 12 L (15-37) U/L ALT 10 L (12-78) U/L Alkaline Phosphatase 87 (45-117) U/L Total Creatine Kinase (26-192) U/L CK-MB (CK-2) (0.5-3.6) ng/ml CK/CKMB % Calc (0-3.0) Troponin I < 0.015 (0-0.045) ng/ml Total Protein 6.9 (6.4-8.2) gm/dl Albumin 3.2 L (3.4-5.0) gm/dl Globulin 3.7 (2.5-4.0) gm/dl Albumin/Globulin Ratio 0.9 (0.9-2) COVID-19 Eval Order SARS-CoV-2 (PCR) (Negative) 09/23/20 09/23/20 09/23/20 Range/Units 15:40 17:55 17:55 WBC (4.8-10.8) K/uL RBC (4.2-5.4) M/uL Hgb (12.0-16.0) g/dL Hct (37-47) % MCV (80-100) fL MCH (25-34) pg MCHC (32-36) g/dL RDW Std Deviation (36.4-46.3) fL RDW Coeff of Paul (11.5-14.5) % Plt Count (130-400) K/uL MPV (7.4-10.4) fL Immature Gran % (Auto) % Neut % (Auto) % Lymph % (Auto) % Haakon % (Auto) % Eos % (Auto) % Baso % (Auto) % Neut # (Auto) (1.4-6.5) K/uL Lymph # (Auto) (1.2-3.4) K/uL Haakon # (Auto) (0.11-0.59) K/uL Eos # (Auto) (0-0.5) K/uL Baso # (Auto) (0-0.2) K/uL Immature Gran # (Auto) (0.00-0.02) K/uL PT (9.0-12.0) Seconds INR (0.9-1.1) APTT (21.0-31.0) Seconds PTT Ratio Sodium (136-145) mmol/L Potassium (3.5-5.1) mmol/L Chloride (98-107) mmol/L Carbon Dioxide (21-32) mmol/L Anion Gap (3-11) BUN (7-18) mg/dl Creatinine (0.6-1.2) mg/dl Est Cr Clr Drug Dosing Est GFR ( Amer) ml/min Est GFR (Non-Af Amer) ml/min BUN/Creatinine Ratio (10-20) Glucose (70-99) mg/dl Calcium (8.5-10.1) mg/dl Magnesium (1.8-2.4) mg/dl Total Bilirubin (0.2-1) mg/dl AST (15-37) U/L ALT (12-78) U/L Alkaline Phosphatase (45-117) U/L Total Creatine Kinase 79 (26-192) U/L CK-MB (CK-2) 1.8 (0.5-3.6) ng/ml CK/CKMB % Calc 2.3 (0-3.0) Troponin I (0-0.045) ng/ml Total Protein (6.4-8.2) gm/dl Albumin (3.4-5.0) gm/dl Globulin (2.5-4.0) gm/dl Albumin/Globulin Ratio (0.9-2) COVID-19 Eval Order Covid19 at [facility] SARS-CoV-2 (PCR) NEGATIVE (Negative) Administered Medications Hydromorphone HCl (Hydromorphone Inj 0.5 Mg/0.5 Ml Syr) 0.25 mg IV Q15M PRN PRN Reason: Pain Stop: 10/07/20 14:45 Last Admin: 09/23/20 17:47 Dose: 0.25 mg Documented by: [id number] Admin: 09/23/20 15:46 Dose: 0.25 mg Documented by: [id number] Nicardipine HCl 25 mg/ Sodium (Chloride) 250 mls @ 25 mls/hr IV .Q10H PRN; Protocol PRN Reason: See protocol tab Stop: 10/23/20 14:45 Last Titration: 09/23/20 19:21 Dose: 0 mg/hr, 0 mls/hr Documented by: [id number] Titration: 09/23/20 18:55 Dose: 2.5 mg/hr, 25 mls/hr Documented by: [id number] Titration: 09/23/20 17:47 Dose: 0 mg/hr, 0 mls/hr Documented by: [id number] Admin: 09/23/20 15:47 Dose: 5 mg/hr, 50 mls/hr Documented by: [id number] Cosigned by: [id number] Morphine Sulfate (Morphine Sulf/Nss) 250 mg in 250 mls @ 1 mls/hr IV .Q96H XU; Protocol Stop: 10/07/20 17:59 Last Admin: 09/23/20 18:20 Dose: 1 mg/hr, 1 mls/hr Documented by: [id number] Cosigned by: [id number] Discontinued Medications Acetaminophen (Ofirmev) 1,000 mg in 100 mls @ 400 mls/hr IV NOW STA Stop: 09/23/20 15:00 Last Infusion: 09/23/20 16:02 Dose: 0 mls/hr Documented by: [id number] Admin: 09/23/20 15:47 Dose: 400 mls/hr Documented by: [id number] Ioversol (Optiray 320 100ml) 94 ml IV ONCE ONE Stop: 09/23/20 16:37 Last Admin: 09/23/20 16:37 Dose: 1 ml Documented by: [id number] Imaging Data Radiologist's Impression: Chest X-Ray 09/23/20 14:46 XR chest 1V portable HISTORY: 79 years-old Female Stroke Like Symptoms acute strokelike symptoms COMPARISON: Right humerus radiographs of same day, acute abdominal series radiographs 05/05/2020 TECHNIQUE: Portable AP view the chest FINDINGS: Cardiomegaly. Hiatal hernia. Calcified plaque of the thoracic aorta with tortuosity. No pneumothorax, pleural effusion, airspace consolidation or overt pulmonary edema. Acute right humeral fracture is partially imaged. IMPRESSION: 1. No acute cardiopulmonary abnormality. 2. Acute mildly displaced right proximal humeral fracture. ACT 112: Negative or not required by law. The above report was generated using voice recognition software. It may contain grammatical, syntax or spelling errors. Electronically signed by: Mike Don M.D. 09/23/2020 3:09 PM Humerus X-Ray 09/23/20 14:46 XR humerus RT 2V HISTORY: 79 years-old Female Pt c/o Rt shoulder pain acute right shoulder pain COMPARISON: Chest radiograph of same day TECHNIQUE: 2 views of the right humerus FINDINGS: Demineralized appearance of the bones. There is an acute mildly comminuted fracture of the proximal right humerus which includes a surgical neck fracture displaced laterally 6 mm. Greater trochanteric fracture is displaced laterally 5 mm. No dislocation. Moderate glenohumeral with mild AC joint osteoarthritis. Sof t tissue swelling surrounds the shoulder. The imaged lung ramirez appear clear. IMPRESSION: 1. Acute mildly comminuted and slightly displaced right proximal humeral fracture. 2. No dislocation. ACT 112: Negative or not required by law. The above report was generated using voice recognition software. It may contain grammatical, syntax or spelling errors. Electronically signed by: Mike Don M.D. 09/23/2020 3:07 PM Abdomen/Pelvis CT 09/23/20 15:[address] WITH CONTRAST; CT ABDOMEN AND PELVIS WITH IV CONTRAST ONLY HISTORY: Acute chest and abdominal trauma status post fall Pt c/o fall TECHNIQUE: Multiaxial CT images of the chest, abdomen and pelvis were performed following the IV administration of Optiray. A dose lowering technique was utilized adhering to the principles of ALARA. COMPARISON: CT chest 11/01/2019, CT abdomen and pelvis 02/20/2020. FINDINGS: CT CHEST: Unremarkable thyroid. Mild cardiomegaly. Moderate thickening of the left ventricular wall. Extensive coronary artery calcifications. Unremarkable pulmonary artery. Extensive atherosclerotic plaque of the thoracic aorta. There is a new saccular outpouching involving the medial aspect of the proximal descending thoracic aorta measuring 2.9 x 1.3 x 2.3 cm on image 65. Progressively worsened and aneurysmal dilation of the descending thoracic aorta measuring up to 4.8 cm transversely, previously 3.6 cm. There is an intimal flap of the aortic arch just distal to the left subclavian origin on image 73 series 10 image is also new from comparison. Increased amount of mural thrombus within the distal descending thoracic aorta. No dissection extension into the aortic root great vessels. Moderate emphysema. No adenopathy. No pneumothorax, pleural effusion, airspace consolidation or overt pulmonary edema. No suspicious pulmonary nodule or mass. Central airways are patent. Diffuse body wall edema. Moderate hemorrhage/deep tissue edema surrounds the acute comminuted and displaced right proximal humeral fracture. Loose bodies are noted within the subscapularis recess. Chronic appearing thoracic compression deformities are unchanged from comparison. CT ABDOMEN/PELVIS: Increased size of a fusiform aneurysmal dilation of the infrarenal abdominal aorta now measuring up to 4.6 x 4.2 cm, previously 4.3 x 3.9 cm. 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 No dissection identified. Unremarkable spleen, mildly atrophic pancreas, adrenal glands and gallbladder. There are a few probable subcentimeter cysts of the liver. 1.9 cm cyst of the left hepatic lobe. Patency of the hepatic and portal veins. There are several right-sided renal cysts. No hydronephrosis. Terry catheter within a decompressed urinary bladder. Intraluminal air likely secondary to rotation. Unremarkable uterus. No adenopathy. No bowel obstruction or bowel wall thickening. Intraluminal stool within the cecum. Postoperative changes of the right hemicolon. The appendix appears surgically absent. Unremarkable soft tissues. Degenerative changes of the spine, pelvis and hips. Postoperative changes of the proximal left femur. Tarlov cysts of the sacrum. T12 and L3 compression deformities appear unchanged. IMPRESSION: 1. 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 2. New saccular outpouching involving the medial aspect of the proximal descending thoracic aorta measuring up to 2.9 cm. This may reflect a penetrating ulcer versus saccular aneurysm. Mural thrombus of the descending thoracic aorta has increased from comparison. 3. Acute comminuted and displaced right proximal humeral fracture. 4. Fusiform aneurysm dilation of the distal infrarenal abdominal aorta measuring up to 4.6 cm previously measured 4.3 cm. No aneurysm rupture. 5. Additional findings as above. ACT 112: Negative or not required by law. Electronically signed by: Mike Don M.D. 09/23/2020 5:[address] 09/23/20 15:04 CT cervical spine wo con CT DOSE: 1289.37 mGy.cm CLINICAL HISTORY: 79 years-old Female with Pt c/o fall. Acute head and neck injury status post fall COMPARISON: CT cervical spine of same day TECHNIQUE: Multiple axial CT images of the cervical spine were obtained without contrast. A dose lowering technique was utilized adhering to the principles of ALARA. FINDINGS: Intraparenchymal hematoma of the right cerebellum. Calcified plaque of the carotid arteries. Emphysematous changes of the lung apices. Layering secretions within the airway. No prevertebral edema. Demineralized appearance of the bones. Chondrocalcinosis of the disc spaces. Moderate intervertebral disc space narrowing at C6-C7. Moderate multilevel facet arthrosis. Severe degeneration at C1-C2. Minimal superior endplate compression at T1 and T2, likely chronic. No acute fracture or subluxation of the cervical spine identified. IMPRESSION: 1. No acute cervical spine fracture or subluxation. 2. Acute intraparenchymal hematoma of the right cerebellum. ACT 112: Negative or not required by law. The above report was generated using voice recognition software. It may contain grammatical, syntax or spelling errors. Electronically signed by: Mike Don M.D. 09/23/2020 5:[address] 09/23/20 15:[address] WITH CONTRAST; CT ABDOMEN AND PELVIS WITH IV CONTRAST ONLY HISTORY: Acute chest and abdominal trauma status post fall Pt c/o fall TECHNIQUE: Multiaxial CT images of the chest, abdomen and pelvis were performed following the IV administration of Optiray. A dose lowering technique was utilized adhering to the principles of ALARA. COMPARISON: CT chest 11/01/2019, CT abdomen and pelvis 02/20/2020. FINDINGS: CT CHEST: Unremarkable thyroid. Mild cardiomegaly. Moderate thickening of the left ventricular wall. Extensive coronary artery calcifications. Unremarkable pulmonary artery. Extensive atherosclerotic plaque of the thoracic aorta. There is a new saccular outpouching involving the medial aspect of the proximal descending thoracic aorta measuring 2.9 x 1.3 x 2.3 cm on image 65. Progressively worsened and aneurysmal dilation of the descending thoracic aorta measuring up to 4.8 cm transversely, previously 3.6 cm. There is an intimal flap of the aortic arch just distal to the left subclavian origin on image 73 series 10 image is also new from comparison. Increased amount of mural thrombus within the distal descending thoracic aorta. No dissection extension into the aortic root great vessels. Moderate emphysema. No adenopathy. No pneumothorax, pleural effusion, airspace consolidation or overt pulmonary edema. No suspicious pulmonary nodule or mass. Central airways are patent. Diffuse body wall edema. Moderate hemorrhage/deep tissue edema surrounds the acute comminuted and displaced right proximal humeral fracture. Loose bodies are noted within the subscapularis recess. Chronic appea ring thoracic compression deformities are unchanged from comparison. CT ABDOMEN/PELVIS: Increased size of a fusiform aneurysmal dilation of the infrarenal abdominal aorta now measuring up to 4.6 x 4.2 cm, previously 4.3 x 3.9 cm. 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 No dissection identified. Unremarkable spleen, mildly atrophic pancreas, adrenal glands and gallbladder. There are a few probable subcentimeter cysts of the liver. 1.9 cm cyst of the left hepatic lobe. Patency of the hepatic and portal veins. There are several right-sided renal cysts. No hydronephrosis. Terry catheter within a decompressed urinary bladder. Intraluminal air likely secondary to rotation. Unremarkable uterus. No adenopathy. No bowel obstruction or bowel wall thickening. Intraluminal stool within the cecum. Postoperative changes of the right hemicolon. The appendix appears surgically absent. Unremarkable soft tissues. Degenerative changes of the spine, pelvis and hips. Postoperative changes of the proximal left femur. Tarlov cysts of the sacrum. T12 and L3 compression deformities appear unchanged. IMPRESSION: 1. 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 Additionally, there is a new short segment dissection of the thoracic aortic arch distal to the left subclavian origin without extension into the aortic root or proximal great vesse ls. 2. New saccular outpouching involving the medial aspect of the proximal descending thoracic aorta measuring up to 2.9 cm. This may reflect a penetrating ulcer versus saccular aneurysm. Mural thrombus of the descending thoracic aorta has increased from comparison. 3. Acute comminuted and displaced right proximal humeral fracture. 4. Fusiform aneurysm dilation of the distal infrarenal abdominal aorta measuring up to 4.6 cm previously measured 4.3 cm. No aneurysm rupture. 5. Additional findings as above. ACT 112: Negative or not required by law. Electronically signed by: Mike Don M.D. 09/23/2020 5:[address] 09/23/20 15:04 CT head/brain wo con CLINICAL HISTORY: 79 years-old Female with Pt c/o found on floor. Acute head trauma status post fall. The patient was found down. TECHNIQUE: Multiple axial CT images of the head were obtained without contrast. A dose lowering technique was utilized adhering to the principles of ALARA. COMPARISON: CT cervical spine of same day FINDINGS: There is an acute intraparenchymal hemorrhage involving the medial aspect of the mid right cerebellar hemisphere measuring 2.5 x 1.1 cm probably involving the dentate nucleus. This may partially extend into the fourth ventricle. Surrounding vasogenic edema results in partial effacement of the fourth ventricle. Trace layering hemorrhage within the posterior horn left lateral ventricle. No midline shift. Age-related involutional changes. White matter hypodensities suggestive of chronic microvascular ischemic disease. No acute territorial infarct. Cerebral vascular calcifications. The calvarium is intact. The paranasal sinuses, mastoid air cells, and middle ear cavities are clear. IMPRESSION: 1. Acute 2.5 x 1.1 cm intraparenchymal hematoma involves the medial aspect of the right mid cerebellar hemisphere/dentate nucleus. Mild to moderate surrounding vasogenic edema results in partial effacement of the fourth ventricle. 2. Small amount of layering intraventricular hemorrhage within the posterior horn left lateral ventricle. 3. No midline shift. 4. No acute calvarial fracture. Findings were discussed with on 09/24/2019 1:15 PM ACT 112: Negative or not required by law. The above report was generated using voice recognition software. It may contain grammatical, syntax or spelling errors. Electronically signed by: Mike Don M.D. 09/23/2020 5:16 PM Discharge Plan Visit Data Chief Complaint: Hypertension Stated Complaint: HTN crisis? altered mental ED Provider: Rivas Bolivar Discharge Problem: Intraparenchymal hematoma of brain, Fracture, humerus, Hypertension Forms Stand Alone Forms: [employer] Prescriptions Prescriptions: No Action No Known Home Medications RF: 0 Referrals Referrals: PCP,NO [Primary Care Provider] - Discharge Problem: Intraparenchymal hematoma of brain Qualifiers: Encounter type: initial encounter Laterality: unspecified laterality Loss of consciousness presence/duration: with LOC of 30 min or less Qualified Code(s): S06.361A - Traumatic hemorrhage of cerebrum, unspecified, with loss of consciousness of 30 minutes or less, initial encounter Fracture, humerus Qualifiers: Encounter type: initial encounter Humerus Location: proximal Fracture type: closed Fracture morphology: unspecified fracture morphology Laterality: right Qualified Code(s): S42.201A - Unspecified fracture of upper end of right humerus, initial encounter for closed fracture Hypertension Qualifiers: Hypertension type: unspecified Qualified Code(s): I10 - Essential (primary) hypertension
[2020-09-23] MEDS ORDERED: LORazepam 0.5 MG/1 ML VIAL IV PRN (20:24)
[2020-09-23] MEDS ORDERED: ONDANSETRON 4 MG OD TAB SL PRN (20:24)
[2020-09-23] MEDS ORDERED: ONDANSETRON INJ 2 MG/ML 2 ML VIAL IV PRN (20:24)
[2020-09-23] MEDS ORDERED: LORazepam 0.5 MG TAB PO PRN (20:24)
[2020-09-23] MEDS ORDERED: LORazepam 2 MG/4 ML VIAL IV PRN (20:24)
[2020-09-23] MEDS: MoRPHine SULF/NSS 250 MG/250 ML BTL IV SCH (20:32)
--- NOTE | 2020-09-24 09:14 | Palliative Care Consultation ---
Date of Consultation September 24, 2020 Assessment & Plan (1) Palliative care encounter: This unfortunate individual is an 79 year old female who presented to the [facility] from home s/p fall and shoulder injury. A head CT was obtained with remarkable results that included an ICH size 2.5 x 1.1 cm but no midline shift, but vasogenic edema. An additional CT scan of the abdomen and chest revealed a descending thoracic aorta that has worsened since last evaluated in October 2019 from 3.6 to 4.8 cm. A fusiform aneurysm dilatation of the distal infrarenal abdominal aorta measuring up to 4.6 cm previously measured at 4.3 cm without rupture was also noted. In the Emergency Room, [facility]surgery was consulted and the case was discussed and determined that she would not be a good surgical candidate. This was discussed with the patients family who decided to pursue a more comfort-focused approach to her care. Her Nicardipine gtt was discontinued and a Morphine gtt was initiated. 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 Palliative Medicine was consulted to assist with goals of care and provide symptom management at end of life. I met with the patient in room 317. She was obtunded and not responding to tactile or verbal stimuli. She appears comfortable and does not show signs of distress and has a relaxed brow. Her daughter, Jenifer, was at the bedside. We discussed the events that occurred over the past 24 hours. All questions answered. Jeniefr mentioned that Consuelo's significant other, Allan was here overnight and just went home to rest. Consuelo's son, will be coming in later this morning. The patient has a Morphine gtt infusing at 3mg/hour. Opioid toxicity risk evaluated and her creatinine is 0.80; no transition to other opioids necessary at this time. Patient does not have any signs of mottling. Still making urine. Jenifer kept saying 'I want her suffering to end'. We discussed her current comfort state and reassurance provided. Provided life expectancy of hours to a day or so. Concern for seizure towards end of life based on disease progression, see below. Will order routine Ativan. Please contact Palliative Medicine with any additional questions or concerns. (2) Protein calorie malnutrition: (3) Carcinoid tumor of ileum: (4) Seizure prophylaxis: Concern for midline shift, worsening ICH that could lead to seizures. Ordered Ativan 1 mg SL Q 6 routine. I discussed this with nursing and instructed not to hold for sedation. History of Present Illness Reason for Consultation: Goals of care Requesting Physician: Dr. Hi Attending Physician: Douglas Galvez MD History of Present Illness This unfortunate individual is an 79 year old female who presented to the [facility] from home s/p fall and shoulder injury. A head CT was obtained with remarkable results that included an ICH size 2.5 x 1.1 cm but no midline shift, but vasogenic edema. An additional CT scan of the abdomen and chest revealed a descending thoracic aorta that has worsened since last evaluated in October 2019 from 3.6 to 4.8 cm. A fusiform aneurysm dilatation of the distal infrarenal abdominal aorta measuring up to 4.6 cm previously measured at 4.3 cm without rupture was also noted. In the Emergency Room, [facility]surgery was consulted and the case was discussed and determined that she would not be a good surgical candidate. This was discussed with the patients family who decided to pursue a more comfort-focused approach to her care. 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 Palliative Medicine was consulted to assist with goals of care and provide symptom management at end of life. Please see A/P for further details. Thanks for involving Palliative Medicine with this individual. Allergies Allergy/AdvReac Type Severity Reaction Status Date / Time No Known Allergies Allergy Verified 09/23/20 15:24 Home Medications Medication Instructions Recorded Confirmed Type No Known Home Medications 06/25/20 09/23/20 History Patient History Medical History Abdominal aortic aneurysm (AAA) 3.0 cm to 5.0 cm in diameter in female Abdominal pain Abnormal CT of the abdomen Carcinoid tumor of ileum Hyperkalemia Hypertension Microscopic hematuria Palliative care encounter Sciatica HX Seizure prophylaxis Thoracic aortic aneurysm Surgical History H/O right hemicolectomy (05/08/20) Right Laparoscopic Hemicolectomy Dr. Kathleen 05/08/2020 History of repair of left hip joint History of tooth extraction Family History Father No problems noted. Mother No problems noted. Sister Breast cancer Other Family history non-contributory Denies family history of Ovarian cancer Prostate cancer Myocardial infarction Colorectal cancer Social History Smoking Status: Current every day smoker Tobacco Type: Cigarettes Cigarettes Per Day: 7-8 CIGS A DAY; Second Hand Exposure: No; Hx Alcohol Use: No Hx Substance Use: No Preferred Language: [place] Communication Ability: Effective Visual Impairment: No Limitations Hearing Ability: Normal Television Audio Engineer Required: No Beliefs That Will Affect Care: None marital status: Current Living Situation: Significant Other 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al status: employed and retired 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: 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 [employer] 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: 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; 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 Feels Safe at Home: Yes Dental Care, Regularly: No Physical Activity Frequency Comment: walks a lot Seatbelt Use: always Sunscreen Use: Yes Assistive Devices: Glasses Review of Systems Review of Systems: [place] System Assessment Scale: By Observation: Pain: 0/3 Anxiety: 0/3 Tiredness: 1/3 Shortness of breath: 0/3 Palliative Performance Scale: 10% Physical Exam Constitutional: + thin, + frail appearing and comfortable ENMT: Nose: + dry nasal mucous membranes Respiratory: normal respiratory effort Auscultation: + diminished lung sounds Cardiovascular: Rate/Rhythm: regular rate and regular rhythm Heart Sounds: normal S1 and normal S2 Extremities: normal capillary refill; no edema Gastrointestinal (Abdomen): normal bowel sounds, soft, nontender, no hepatosplenomegaly Skin: + pallor Neurologic: + obtunded PG Care Time/CCT Total # of Minutes Spent Total Time Spent with Patient: Total time spent is greater than 50% in coordination of care (as documented) at patient's floor/unit and/or counseling patient: 70 minutes with > 50% of that time spent assessing the patient, discussing goals of care with family, providing symptom management and collaborating with IDT Coding Level of Care Code 50021 Initial Inpt Care Lvl 3 Diagnoses Palliative care encounter Z51.5 Protein calorie malnutrition E46 Carcinoid tumor of ileum D3A.012 Seizure prophylaxis Z29.8 Time Spent (min) 70
--- NOTE | 2020-09-24 09:30 | Hospitalist Progress Note ---
Date of Service September 24, 2020 Assessment & Plan (1) Intraparenchymal hematoma of brain: 79yo female with extensive PMH including HTN, thoracic and abdominal aortic aneurysms, and carcinoid tumor of ileum s/p right hemicolectomy (05/06) presents with intraparenchymal hematoma, thoracic aortic aneurysm dissection, and right humeral fracture after being found down. Patient has been placed on INSTRUMENT TESTER after discussion with patient's family, which seems to be in line with patient's expressed wishes. Goals of care Patient placed on comfort measures only after discussion between attending provider and patient's family Palliative consulted and confirmed these wishes Treat symptoms as they arise; lorazepam prn ordered for agitation, morphine prn for pain, atropine drops sublingual prn for secretions Non-palliative medications discontinued Family allowed extended visitation hours Continue to monitor Intraparenchymal hemorrhage Concern that worsening midline shift from ICH could lead to seizures Ativan 1mg sublingual q6h for seizure prevention, nursing notified to not hold this in the setting of sedation No other intervention indicated FEN: NPO Code status: DNR/DNI DVT ppx: not indicated Dispo: med/surg Admission and Anticipated Discharge Date Admission Date: September 23, 2020 Supervising Physician Co-Signing Physician Notes Attending attestation Pt seen and examined in concert with Dr. Sanchez. In agreement with the documented findings as noted in the resident documentation with any exceptions or additions as noted here. Resting in bed without overt signs of agitation with family at bedside. Son ANGEL is aware and up to date re: care Intraparenchymal hemorrhage - palliative care consult - comfort measures with morphine and ativan for control of pain & agitation. Education re: family at bedside on course and symptoms. Caution re: seizure sx with bleed. Else see resident documentation as noted. Subjective Patient seen and evaluated at bedside this morning. Agitation overnight treated with lorazepam with good effect. On exam today, patient is asleep and appears to be comfortable. Family present at bedside. Returned in the afternoon and discussed patient's situation with son and [id number]. Family surprised by situation but appears to be coping well at this time. ROS not attempted as did not want to disturb patient's rest. Review of Systems Review of Systems: See HPI Physical Exam Physical Exam: Constitutional: well-appearing, asleep, no acute distress CV: regular rhythm, no murmur appreciated, extremities well-perfused Resp: CTABL, no increased work of breathing Skin: warm, dry, no rash appreciated Neuro: exam deferred as patient was resting and is on INSTRUMENT TESTER Resident Activity Tracking Resident Involvement: Resident Care Provided Care Provided: Adult Hospital Medicine (1) Intraparenchymal hematoma of brain Encounter type: initial encounter Laterality: unspecified laterality Loss of consciousness presence/duration: with LOC of 30 min or less Qualified Code(s): S06.361A - Traumatic hemorrhage of cerebrum, unspecified, with loss of consciousness of 30 minutes or less, initial encounter
[2020-09-24] MEDS ORDERED: LORazepam 1 MG TAB SL SCH (10:15)
[2020-09-24] MEDS: LORazepam 1 MG/2 ML VIAL IV SCH ×3 (11:11→22:51)
--- NOTE | 2020-09-24 17:33 | Electrocardiogram Report ---
Test Reason : Blood Pressure : / mmHG Vent. Rate : 080 BPM Atrial Rate : 073 BPM P-R Int : 000 ms QRS Dur : 076 ms QT Int : 394 ms P-R-T Axes : 000 -35 028 degrees QTc Int : 454 ms Poor data quality, interpretation may be adversely affected Sinus rhythm with PACs and some aberrant conduction Left axis deviation Poor R wave progression, consider anterior TX vs. lead placement vs. LVH Abnormal ECG Confirmed by Stanislav Sorensen ([id number]) on 09/24/2020 5:33:09 PM Referred By: REFERRED SELF Confirmed By:Ananth Sorensen
[2020-09-25] MEDS: ATROPINE SULFATE 1% OP SOLN 5 ML BTL SL PRN ×2 (02:29→18:29)
[2020-09-25] MEDS: LORazepam 1 MG/2 ML VIAL IV SCH ×4 (04:57→22:40)
--- NOTE | 2020-09-25 07:50 | Hospitalist Progress Note ---
Date of Service September 25, 2020 Assessment & Plan (1) Intraparenchymal hematoma of brain: 79yo female with extensive PMH including HTN, thoracic and abdominal aortic aneurysms, and carcinoid tumor of ileum s/p right hemicolectomy (05/06) presents with intraparenchymal hematoma, thoracic aortic aneurysm dissection, and right humeral fracture after being found down. Patient has been placed on ADMINISTRATIVE SUPPORT ASSISTANT after discussion with patient's family, which seems to be in line with patient's expressed wishes. Goals of care Patient placed on comfort measures only after discussion between attending provider and patient's family Palliative consulted and confirmed these wishes Treat symptoms as they arise; lorazepam prn ordered for agitation, morphine prn for pain, atropine drops sublingual prn for secretions Non-palliative medications discontinued Family allowed extended visitation hours Continue to monitor Intraparenchymal hemorrhage Concern that worsening midline shift from ICH could lead to seizures Ativan 1mg sublingual q6h for seizure prevention, nursing notified to not hold this in the setting of sedation No other intervention indicated FEN: NPO Code status: DNR/DNI DVT ppx: not indicated Dispo: med/surg Admission and Anticipated Discharge Date Admission Date: September 23, 2020 Supervising Physician Co-Signing Physician Notes Attending attestation Pt seen and examined in concert with Dr. Sanchez. In agreement with the documented findings as noted in the resident documentation with any exceptions or additions as noted here. Resting in bed without overt signs of agitation with family at bedside. Intraparenchymal hemorrhage - palliative care consult - comfort measures with morphine and ativan for control of pain & agitation. Caution re: seizure sx with bleed. Else see resident documentation as noted. Subjective Patient seen and evaluated at bedside this morning. No acute events overnight. This morning, patient appears comfortably asleep. Daughter present at bedside. Questions asked and answered. No new concerns. Review of Systems Review of Systems: Deferred Physical Exam Physical Exam: Constitutional: well-appearing, asleep, no acute distress CV: regular rhythm, no murmur appreciated, extremities well-perfused Resp: CTABL, no increased work of breathing Skin: warm, dry, no rash appreciated Neuro: exam not indicated Resident Activity Tracking Resident Involvement: Resident Care Provided Care Provided: Adult Hospital Medicine (1) Intraparenchymal hematoma of brain Encounter type: initial encounter Laterality: unspecified laterality Loss of consciousness presence/duration: with LOC of 30 min or less Qualified Code(s): S06.361A - Traumatic hemorrhage of cerebrum, unspecified, with loss of consciousness of 30 minutes or less, initial encounter
--- NOTE | 2020-09-25 10:23 | Palliative Care Progress Note ---
Date of Service September 25, 2020 Assessment & Plan (1) Palliative care encounter: I met with the patient in room 317. She was obtunded and not responding to tactile or verbal stimuli, similar to yesterday. She appears comfortable and does not show signs of distress and has a relaxed brow. No family was noted at the bedside. The patient has a Morphine gtt that is continuing to infuse at 3mg/hour. Opioid toxicity risk evaluated and her last documented creatinine is 0.80; no transition to other opioids necessary at this time. Patient does not have any signs of mottling; however, her extremities are now cool to touch with faint pedal pulses noted. She is still making urine. Life expectancy remains hours to a day or so. As patient is on a Morphine infusion and no signs of response with overall decline noted over the past 24 hours, currently not stable for out of hospital transfer. Should anything change, we will ensure to discuss other discharge options with family. Please contact Palliative Medicine with any additional questions or concerns. (2) Protein calorie malnutrition: (3) Carcinoid tumor of ileum: (4) Seizure prophylaxis: Concern for midline shift, worsening ICH that could lead to seizures. Pt tolerating Ativan 1 mg SL Q 6 routine. I discussed this with nursing and instructed not to hold for sedation. Admission and Anticipated Discharge Date Admission Date: September 23, 2020 Subjective Patient is obtunded and does not respond to painful or tactile stimulation. Patient extremities are cool to touch. Patient having some diaphoresis on exam No family at bedside. See A/P for further details Review of Systems Review of Systems: [place] System Assessment Scale: By Observation: Pain: 0/3 Anxiety: 0/3 Tiredness: 1/3 Shortness of breath: 0/3 Palliative Performance Scale: 10% Physical Exam Constitutional: + thin, + frail appearing and comfortable ENMT: Nose: + dry nasal mucous membranes Respiratory: normal respiratory effort Auscultation: + diminished lung sounds Cardiovascular: Rate/Rhythm: regular rate and regular rhythm Heart Sounds: normal S1 and normal S2 Extremities: normal capillary refill; no edema Gastrointestinal (Abdomen): normal bowel sounds, soft, nontender, no hepatosplenomegaly Skin: + pallor Neurologic: + obtunded PG Care Time/CCT Total # of Minutes Spent Total Time Spent with Patient: Total time spent is greater than 50% in coordination of care (as documented) at patient's floor/unit and/or counseling patient: 35 minutes with > 50% of that time spent assessing the patient, updating family with goals of care, evaluating symptom management and collaborating with IDT Coding Level of Care Code 27266 Subseq Hosp Care Lvl 3 Diagnoses Palliative care encounter Z51.5 Protein calorie malnutrition E46 Carcinoid tumor of ileum D3A.012 Seizure prophylaxis Z29.8 Time Spent (min) 35
[2020-09-26] MEDS: LORazepam 1 MG/2 ML VIAL IV SCH ×6 (05:35→23:38)
--- NOTE | 2020-09-26 08:01 | Hospitalist Progress Note ---
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 Patient has been placed on [facility] after discussion with patient's family, which seems to be in line with patient's expressed wishes. Goals of care Patient placed on comfort measures only after discussion between attending provider and patient's family Palliative consulted and confirmed these wishes Treat symptoms as they arise; lorazepam prn ordered for agitation, morphine prn for pain, atropine drops sublingual prn for secretions Non-palliative medications discontinued Family allowed extended visitation hours Continue to monitor Intraparenchymal hemorrhage Concern that worsening midline shift from ICH could lead to seizures Ativan 1mg sublingual q6h for seizure prevention, nursing notified to not hold this in the setting of sedation No other intervention indicated FEN: NPO Code status: DNR/DNI DVT ppx: not indicated Dispo: med/surg Admission and Anticipated Discharge Date Admission Date: September 23, 2020 Supervising Physician Co-Signing Physician Notes Attending attestation Pt seen and examined in concert with Dr. Sanchez. In agreement with the documented findings as noted in the resident documentation with any exceptions or additions as noted here. Resting in bed without overt signs of agitation with family at bedside. Extensive discussion of patient course and status with family at bedside (Lemus) and updates re: interventions previously considered and rationale. New onset tremor in the setting of hemorrhage - increase lorazepam use to ppx re: seizures Intraparenchymal hemorrhage - palliative care consult - comfort measures with morphine and ativan for control of pain & agitation. Else see resident documentation as noted. Total attending time spent on this case: 40 minutes. Subjective Overnight, patient was administered atropine for secretions which have improved. Patient seen and evaluated at bedside this morning. Laying in bed, comfortable- appearing but unresponsive to voice or touch. Infrequent head myoclonus appreciated. ROS unable to be obtained. Review of Systems Review of Systems: See HPI Physical Exam Physical Exam: Constitutional: well-appearing, asleep, no acute distress CV: regular rhythm, no murmur appreciated, extremities well-perfused Resp: no increased work of breathing Skin: dry, no rash appreciated, extremities cool Neuro: unresponsive to tactile or verbal stimulation (1) Intraparenchymal hematoma of brain Encounter type: initial encounter Laterality: unspecified laterality Loss of consciousness presence/duration: with LOC of 30 min or less Qualified Code(s): S06.361A - Traumatic hemorrhage of cerebrum, unspecified, with loss of consciousness of 30 minutes or less, initial encounter
--- NOTE | 2020-09-26 12:14 | Palliative Care Progress Note ---
Date of Service September 26, 2020 Assessment & Plan (1) Palliative care encounter: Plan: Talked with family at bedside. She appears to be comfortable with current morphine infusion. No myoclonus noted. I do not think that her head tremor is related to opioid toxicity. No rigidity or other indications of seizure activity. Will increase routine lorazepam dosing to every four hours. Continue morphine infusion at current dose. Anticipate within hours to a day or two. (2) Seizure prophylaxis: (3) Intraparenchymal hematoma of brain: Admission and Anticipated Discharge Date Admission Date: September 23, 2020 Subjective No response to voice or touch. Called by RN with concern about head tremor which started this morning. No change with 2mg dose of lorazepam. No reports of myoclonus. Decreased urine output. Had one dose of atropine last night for secretions. Review of Systems Review of Systems: Unobtainable due to reduced consciousness [place] Symptom Assessment Scale PainAD 0/3 Dyspnea by observation 0/3 Palliative Performance Score 10% Physical Exam Constitutional: no acute distress ENMT: Mouth: + dry oral mucous membranes Respiratory: no labored breathing, no audible rhonchi Cardiovascular: Rate/Rhythm: + irregularly irregular Gastrointestinal (Abdomen): soft, nontender, nondistended Musculoskeletal: Extremities: + muscle atrophy Skin: warm to touch Neurologic: + obtunded PG Care Time/CCT Total # of Minutes Spent Total Time Spent with Patient: Total time spent is greater than 50% in coordination of care (as documented) at patient's floor/unit and/or counseling patient: Coding Level of Care Code 61409 Subseq Hosp Care Lvl 2 Diagnoses Palliative care encounter Z51.5 Seizure prophylaxis Z29.8 Intraparenchymal hematoma of brain S06.361A Encounter type: initial encounter Laterality: unspecified laterality Loss of consciousness presence/duration: with LOC of 30 min or less (1) Intraparenchymal hematoma of brain Encounter type: initial encounter Laterality: unspecified laterality Loss of consciousness presence/duration: with LOC of 30 min or less Qualified Code(s): S06.361A - Traumatic hemorrhage of cerebrum, unspecified, with loss of consciousness of 30 minutes or less, initial encounter
[2020-09-27] MEDS: LORazepam 1 MG/2 ML VIAL IV SCH ×2 (04:09→08:14)
[2020-09-27] MEDS: ATROPINE SULFATE 1% OP SOLN 5 ML BTL SL PRN (04:14)
[2020-09-27] MEDS: MoRPHine SULF/NSS 250 MG/250 ML BTL IV SCH (06:44)
--- NOTE | 2020-09-27 09:58 | Palliative Care Consultation ---
Date of Consultation September 27, 2020 Assessment & Plan (1) Palliative care encounter: Mrs. Rich peacefully this morning at 0945. Oxygen and morphine infusion stopped. I spoke with her SO, Allan Subramanian, on the phone and talked with him about her peaceful . He would like to come in and see her. desktop publishing associate and RN notified. (2) Intraparenchymal hematoma of brain: Encounter type: initial encounter Laterality: unspecified laterality Loss of consciousness presence/duration: with LOC of 30 min or less Qualified Code(s): S06.361A - Traumatic hemorrhage of cerebrum, unspecified, with loss of consciousness of 30 minutes or less, initial encounter History of Present Illness Attending Physician: Douglas Galvez MD History of Present Illness Morphine infusion increased to 6mg/hr overnight due to changes in respiration. RN reports agonal respirations with care this morning. Mrs Rich is unresponsive and apneic at the time of my visit. Allergies Allergy/AdvReac Type Severity Reaction Status Date / Time No Known Allergies Allergy Verified 09/23/20 15:24 Home Medications Medication Instructions Recorded Confirmed Type No Known Home Medications 06/25/20 09/23/20 History Patient History Medical History Abdominal aortic aneurysm (AAA) 3.0 cm to 5.0 cm in diameter in female Abdominal pain Abnormal CT of the abdomen Carcinoid tumor of ileum Hyperkalemia Hypertension Microscopic hematuria Palliative care encounter Sciatica HX Seizure prophylaxis Thoracic aortic aneurysm Surgical History H/O right hemicolectomy (05/08/20) Right Laparoscopic Hemicolectomy Dr. Kathleen 05/08/2020 History of repair of left hip joint History of tooth extraction Family History Father No problems noted. Mother No problems noted. Sister Breast cancer Other Family history non-contributory Denies family history of Ovarian cancer Prostate cancer Myocardial infarction Colorectal cancer Social History Smoking Status: Current every day smoker Tobacco Type: Cigarettes Cigarettes Per Day: 7-8 CIGS A DAY; Second Hand Exposure: No; Hx Alcohol Use: No Hx Substance Use: No Preferred Language: Pashto Communication Ability: Impaired Visual Impairment: No Limitations Hearing Ability: Normal Pipe Bender Required: No Beliefs That Will Affect Care: None marital status: Life Partner Current Living Situation: Significant Other 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al status: employed and retired 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: 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 No respirations with observation or auscultation Cardiovascular: No radial or carotid pulse. No heart sounds Skin: warm to touch PG Care Time/CCT Total # of Minutes Spent Total Time Spent with Patient: Total time spent is greater than 50% in coordination of care (as documented) at patient's floor/unit and/or counseling patient: Coding Level of Care Code 44514 Initial Inpt Care Lvl 2 Diagnoses Palliative care encounter Z51.5 Intraparenchymal hematoma of brain S06.361A Encounter type: initial encounter Laterality: unspecified laterality Loss of consciousness presence/duration: with LOC of 30 min or less
--- NOTE | 2020-09-27 10:40 | Death Pronouncement Note ---
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 ED after being found down due to an unwitnessed fall. Imaging in the ED revealed intraparenchymal hematoma, thoracic aortic aneurysm dissection, and right humeral fracture. Patient's prognosis was deemed poor. Admitting provider discussed with patient's family, and the decision was made to place patient on comfort measures only. Patient was treated with scheduled ativan due to concern for seizure secondary to brainstem herniation. Patient peacefully on hospital day five. Family was notified. Additional Data Confirmation of : no pulse, no respirations, no heart sounds and pupils fixed and dilated Family: contacted Attending/PCP notified?: Yes Attending physician: Douglas Galvez MD Was code activated?: No Autopsy requested?: No light out examiner notified?: No Organ bank notified?: No Resident Activity Tracking Resident Involvement: Resident Care Provided Care Provided: Adult Hospital Medicine
--- NOTE | 2020-09-27 17:50 | Discharge Summary ---
Date of Service September 27, 2020 Admission HPI Per Admitting Provider The patient is a an 79-year-old female with a past medical history including carcinoid tumor of ileum status post right hemicolectomy on 05/08/2020, hypertensive urgency, renal artery stenosis, tobacco abuse, cardiomegaly, COPD, protein calorie malnutrition, thoracic aortic aneurysm, hypertension and abdominal aortic aneurysm. Work-up in the emergency department included a CT scan of head and brain without contrast, which showed an acute 2.5 x 1.1 cm intraparenchymal hematoma involving the medial aspect of the right mid cerebellar hemisphere/dentate nucleus with mild to moderate surrounding vasogenic edema resulting in partial effacement of the fourth ventricle. There is a small amount of layering intraventricular hemorrhage within the posterior horn of the left lateral ventricle. There is no midline shift and no acute calvarial fracture. CT scan of the chest/abdomen and pelvis showed an aneurysmal dilatation of the descending thoracic aorta that is increased in size from 11/01/2019 from 3.6 up to 4.8 cm. 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 There is a new saccular outpouching involving the medial aspect of the proximal descending thoracic aorta measuring up to 2.9 cm, which may reflect a penetrating ulcer versus saccular aneurysm. 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 There is an acute comminuted and displaced right proximal humeral fracture. Fusiform aneurysm dilatation of the distal infrarenal abdominal aorta measuring up to 4.6 cm previously measured at 4.3 cm without rupture. Emergency department physician Dr. Bolivar discussed case with neurosurgery at [facility] in [place], who felt that patient would not be a good surgical candidate. Her case was discussed with family members, who have asked the patient be admitted to [facility] for comfort measures Admission Exam Per Admitting Provider The patient is awake, lying in bed and in no acute distress. HEENT--PERRL, EOMI, mucous membranes and oropharynx moist Neck--supple. No JVD. No bruits. Thyroid normal, trachea midline, no adenopathy. Heart--normal S1 and S2. No murmurs, rubs or gallops. Lungs--clear bilaterally, no respiratory distress, no accessory muscle use. Abdomen--normal bowel sounds and soft. Nontender. Nondistended Extremities--no cyanosis or clubbing. No edema. Dermatologic--skin is dry Neurologic--limited exam Rheumatologic--limited exam Psychiatric--mildly sedated due to pain medications. Principal Diagnosis Intraparenchymal hemorrhage Discharge Exam Constitutional: laying in bed motionless HEENT: pupils fixed and dilated CV: no peripheral pulses, no heartbeat on auscultation Resp: no respirations, no breath sounds on auscultation Skin: cool extremities Neuro: no response to verbal or tactile stimuli Discharge Data Allergies Allergy/AdvReac Type Severity Reaction Status Date / Time No Known Allergies Allergy Verified 09/23/20 15:24 Consultations 09/23/20 17:49 ED Decision to Admit Stat 09/23/20 20:24 Consult Palliative Care Routine Ordered Studies 09/23/20 15:04 CT abd pelvis IV con only Stat CT cervical spine wo con Stat CT chest diagnostic w con Stat CT head/brain wo con Stat Hospital Course (1) Intraparenchymal hematoma of brain: Imaging in the ED revealed intraparenchymal hematoma, thoracic aortic aneurysm dissection, and right humeral fracture. Patient's prognosis was deemed poor. Admitting provider discussed with patient's family, and the decision was made to place patient on comfort measures only. Patient was treated with scheduled ativan due to concern for seizure secondary to brainstem herniation. Patient peacefully on hospital day five. Family was notified. Total Time Total Time Spent Total Time Spent (In Minutes): see attending documentation Discharge Plan Discharge Items Patient Disposition: Discharge Diagnosis: Intraparenchymal hemorrhage Addtl Attending Provider Instructions: Consuelo Rich was admitted for intraparenchymal hemorrhage after being found down. Consuelo was placed on comfort measures only, and peacefully on 09/27/2020. Thank you for allowing us to participate in Consuelo's care. Supervising Physician Co-Signing Physician Notes Attending attestation Pt seen and examined in concert with Dr. Sanchez. In agreement with the documented findings as noted in the resident documentation with any exceptions or additions as noted here. Comfort measures with passing as noted at 0945 without overt agitation. Examination as noted. Intraparenchymal hemorrhage - palliative care consult - comfort measures with morphine and ativan for control of pain & agitation terminated at patient demise. New onset tremor in the setting of hemorrhage - was tolerating lorazepam without agitation or recurrent tremor prior to demise. Else see resident documentation as noted. Total attending time spent on this case on the day of discharge: 40 minutes.
== END 2020-09-27 09:45 | disposition expired | DRG 85 ==
LOC: ED 14:13 → SUATTDRO 18:37 → 3E 18:37